=== PATIENT | male | born 1960 | race Caucasian/White ===

== ENCOUNTER 2021-08-14 12:23 | Inpatient (IN) ==
[2021-08-14] MEDS: NS 1000 ML 1,000 ML IV SCH (15:11)
[2021-08-14 15:35] LABS: APPEARANCE,URINE CLEAR (CLEAR); BACTERIA,URINE TRACE /HPF (NEGATIVE); BILIRUBIN,URINE NEGATIVE (NEGATIVE); BLOOD/HEMOGLOBIN,URINE 3+ (NEGATIVE); COLOR,URINE YELLOW (YELLOW); GLUCOSE, URINE NEGATIVE (NEGATIVE); KETONES,URINE NEGATIVE (NEGATIVE); LEUKOCYTE ESTERASE ,URINE NEGATIVE (NEGATIVE); NITRITES,URINE NEGATIVE (NEGATIVE); PROTEIN,URINE NEGATIVE (NEGATIVE); SQUAMOUS EPITHELIAL CELL,UR RARE /HPF (NEGATIVE); UROBILINOGEN,URINE 1+ (NORMAL)
[2021-08-14 15:42] LABS: BASOPHILS # (AUTO) 0.1 X10^3/uL (0.0-0.1); BASOPHILS % (AUTO) 0.7 % (0.2-1.0); EOSINOPHILS % (AUTO) 9.8 % (0.9-2.9); HEMATOCRIT 36.3 % (42.0-54.0); HEMOGLOBIN 12.3 g/dL (13.5-18.0); LYMPHOCYTES # (AUTO) 2.8 X10^3/uL (1.3-2.9); LYMPHOCYTES % (AUTO) 27.2 % (21.0-51.0); MEAN CORPUSCULAR HEMOGLOBIN 32.2 pg (27.0-34.0); MEAN CORPUSCULAR HGB CONC 33.8 g/dL (33.0-35.0); MEAN CORPUSCULAR VOLUME 95.1 fL (80.0-100.0); MONOCYTES # (AUTO) 1.6 x10^3/uL (0.3-0.8); MONOCYTES % (AUTO) 15.6 % (0.0-13.0); NEUTROPHILS # (AUTO) 4.8 x10^3/uL (2.2-4.8); NEUTROPHILS % (AUTO) 46.7 % (42.0-75.0); PLATELET COUNT 161 X10^3/uL (150.0-450.0); RED BLOOD COUNT 3.82 X10^6/uL (4.7-6.0); RED CELL DISTRIBUTION WIDTH 16.2 % (11.6-16.5); WHITE BLOOD COUNT 10.2 X10^3/uL (3.6-10.0)
--- NOTE | 2021-08-14 15:49 | RAD ---
HISTORYABDOMEN PAINSTUDYACUTE x-ray ABDOMEN SERIES, one view chest and two view abdomenCOMPARISONChest x-ray 07/[address] abdomen 07/1921FINDINGSThere is cardiomegaly but it is improved from prior study. No pulmonary venous congestion. No pneumothorax, focal infiltrate, or pleural effusion is seen.No evidence of free intraperitoneal air. Mild small and large bowel air is likely within normal limits. No evidence of constipation. Abdomen images are limited due to patient's size.IMPRESSIONNo acute abdomen abnormality identified.Mild cardiomegaly is improved from prior study.Electronically signed by: Isaac Thomas (Aug 14, 2021 15:46:57)
[2021-08-14 15:51] LABS: AMMONIA 67 umol/L (11-32)
[2021-08-14 15:53] LABS: ALANINE AMINOTRANSFERASE 31 Units/L (12-78); ALBUMIN 2.2 g/dL (3.4-5.0); ALKALINE PHOSPHATASE 129 Units/L (46-116); ASPARTATE AMINO TRANSFERASE 40 Units/L (15-37); BLOOD UREA NITROGEN 39 mg/dL (7-18); CALCIUM 8.5 mg/dL (8.5-10.1); CARBON DIOXIDE 28.2 mmol/L (21-32); CHLORIDE 103 mmol/L (98-107); COR CA(FOR HYPOALB) 9.9 mg/dL (8.5-10.1); CREATININE 3.51 mg/dL (0.70-1.30); SODIUM 141 mmol/L (136-145); TOTAL PROTEIN 5.3 g/dL (6.4-8.2); eGFR NON BLACK RACES 19 (>60)
[2021-08-14] MEDS: LASIX IVP SCH (16:41)
[2021-08-14] MEDS ORDERED: CHRONULAC PO SCH (21:37)
[2021-08-15 05:27] LABS: BASOPHILS # (AUTO) 0.1 X10^3/uL (0.0-0.1); BASOPHILS % (AUTO) 0.7 % (0.2-1.0); EOSINOPHILS # (AUTO) 0.9 x10^3/uL (0.0-0.2); EOSINOPHILS % (AUTO) 11.8 % (0.9-2.9); HEMATOCRIT 32.4 % (42.0-54.0); HEMOGLOBIN 11.2 g/dL (13.5-18.0); LYMPHOCYTES # (AUTO) 2.5 X10^3/uL (1.3-2.9); LYMPHOCYTES % (AUTO) 32.5 % (21.0-51.0); MEAN CORPUSCULAR HEMOGLOBIN 32.5 pg (27.0-34.0); MEAN CORPUSCULAR HGB CONC 34.5 g/dL (33.0-35.0); MEAN CORPUSCULAR VOLUME 94.2 fL (80.0-100.0); MEAN PLATELET VOLUME 6.9 fL (7.4-11.0); MONOCYTES # (AUTO) 1.1 x10^3/uL (0.3-0.8); NEUTROPHILS # (AUTO) 3.2 x10^3/uL (2.2-4.8); PLATELET COUNT 126 X10^3/uL (150.0-450.0); RED BLOOD COUNT 3.44 X10^6/uL (4.7-6.0); RED CELL DISTRIBUTION WIDTH 16.5 % (11.6-16.5); WHITE BLOOD COUNT 7.8 X10^3/uL (3.6-10.0)
[2021-08-15 05:36] LABS: AMMONIA 86 umol/L (11-32)
[2021-08-15 05:39] LABS: ALANINE AMINOTRANSFERASE 27 Units/L (12-78); ALBUMIN 1.9 g/dL (3.4-5.0); ALKALINE PHOSPHATASE 107 Units/L (46-116); ASPARTATE AMINO TRANSFERASE 36 Units/L (15-37); BLOOD UREA NITROGEN 35 mg/dL (7-18); CALCIUM 8.1 mg/dL (8.5-10.1); CHLORIDE 105 mmol/L (98-107); COR CA(FOR HYPOALB) 9.8 mg/dL (8.5-10.1); CREATININE 2.56 mg/dL (0.70-1.30); SODIUM 142 mmol/L (136-145); TOTAL PROTEIN 4.8 g/dL (6.4-8.2); eGFR NON BLACK RACES 27 (>60)
[2021-08-15] MEDS: NS 1000 ML 1,000 ML IV SCH (06:28)
[2021-08-15] MEDS: ALBUMIN HUMAN 25%- 100 ML 100 ML IV SCH (08:59)
[2021-08-15] MEDS: CHRONULAC PO SCH ×3 (08:59→21:00)
[2021-08-15] MEDS: LASIX IVP SCH ×3 (09:01→16:39)
--- NOTE | 2021-08-15 11:14 | DR.UPDATE ---
H&P Update History and Physical Update: History and Physical reviewed and patient examined. Changes noted: Yes with the following: TIME SPENT ON CLINICAL ASSESSMENT, REVIEWING LABS AND IMAGING, DECISION MAKING, AND DOCUMENTATION GREATER THAN 75 MINUTES. IS A 61 YEAR OLD PATIENT OF OURS. HE HAS BEEN FOLLOWED IN THE OFFICE FOR THE PAST FEW DAYS DUE TO COMPLAINTS OF SHORTNESS OF BREATH, LOWER EXTREMITY SWELLING, HYPOTENSION, AND WEAKNESS. PATIENT WAS RECENTLY RELEASED FROM [facility] IN [place], [place] AFTER HAVING A HEART CATH. THIS WAS 3 DAYS AGO. HEART CATH WAS CLEAR, BUT PATIENT DID HAVE MESH PUT IN BECAUSE HE HAS A PULMONARY EMBOLISM AND BLOOD CLOT IN THE LEFT LEG. SINCE DISCHARGE, DIONISIO DUNN HAS HAD PERSISTENT, INCREASED SHORTNESS OF BREATH AND INCREASED SWELLING OF BILATERAL LEGS. HE HAS ALSO HAD DIZZINESS AND GAIT ABNORMALITY. PATIENTS FAMILY MEMBER REPORTS THAT HE HAS FALLEN THREE TIMES SINCE RETURNNG HOME. SHE REPORTS THAT PATIENT REQUIRES ASSISTANCE ANYTIME HE AMBULATES. PATIENT DOES HAVE A NEW DIAGNOSIS OF FATTY LIVER CIRRHOSIS. ABDOMEN/PELVIS CT FROM 07/29/21 REVEALED: Cir rhosis with moderate ascites and mild portal venous hypertension changes. Likely colitis in the ascending, transverse, and proximal descending colon. WE ADMITTED PATIENT TO THE HOSPITAL FOR FURTHER EVALUATION AND TREATMENT OF CIRRHOSIS WITH HEPATIC ENCEPHALOPATHY, ANASARCA, ACUTE RENAL FAILURE, AND SHORTNESS OF BREATH. ON ARRIVAL TO THE HOSPITAL, VITALS WERE 97.8-90-20-96%-151/66. LABS WERE OBTAIN ED. ABNORMAL LAB VALUES INCLUDE THE FOLLOWING: WBC 10.2, RBC 3.82, HGB 12.3, HCT 36.3, POTASSIUM 3.4, BUN 39, CREATININE 3.51, TOTAL BILIRUBIN 3.50, AST 40, ALK PHOS 129, AMMONIA 67, TOTAL PROTEIN 5.3, ALBUMIN 2.2. URINALYSIS REVEALED: WBC 0-2, RBC 10-20, OCCULT BLOOD 3+, BACTERIA TRACE. COVID, RSV, INFLUENZA NEGATIVE. ABDOMEN XRAY OBTAINED AND REVELAED: No acute abdomen abnormality identified. Mi ld cardiomegaly is improved from prior study. HE WAS STARTED ON NORMAL SALINE AT 75 ML/HR, LASIX 20MG IV BID, ALBUMIN 25% IV DAILY, LACTULOSE 30ML PO TID. WE WILL REVIEW HIS HOME MEDICATIONS. WE WILL REPEAT AN ABDOMEN/PELVIS CT WITHOUT CONTRAST. OTHERWISE, WE PLAN TO FOLLOW UP WITH AM LABS AND CONTINUE TO MONITOR. TIME SPENT ON CLINICAL ASSESSMENT, REVIEWING LABS AND IMAGING, DECISION MAKING, AND DOCUMENTATION GREATER THAN 75 MINUTES. H&P Reviewed: Yes Patient was examined?: Yes
[2021-08-15] MEDS ORDERED: ROXICODONE TAB 5 MG PO PRN (11:23)
[2021-08-15] MEDS: MAG-OX TAB PO SCH (12:17)
[2021-08-15] MEDS: SYNTHROID 150 mcg TAB PO SCH (12:17)
[2021-08-15 12:49] VITALS: BMI 49.4
[2021-08-15] MEDS ORDERED: POTASSIUM CHL 60 MEQ/NS 0.45% 500 ML IV PRN (12:54)
[2021-08-15] MEDS ORDERED: POTASSIUM CHLORIDE LIQ 20 MEQ UDC PO PRN (12:54)
[2021-08-15] MEDS ORDERED: POTASSIUM CHL 40 MEQ/NS 0.45% 500 ML IV PRN (12:54)
[2021-08-15] MEDS ORDERED: KLOR-CON PO PRN (12:54)
[2021-08-15] MEDS ORDERED: K-RIDER 10 MEQ/NS 100 ML 10 MEQ/100 ML BAG IV PRN (12:54)
[2021-08-15] MEDS ORDERED: MICRO K EXTEN CAP 10 MEQ PO PRN (12:54)
[2021-08-15] MEDS ORDERED: CELEXA ONE (19:59)
[2021-08-15] MEDS ORDERED: FLEXERIL TAB 10 MG ONE (19:59)
[2021-08-15] MEDS ORDERED: PEPCID TAB 20 MG ONE (19:59)
[2021-08-15] MEDS: FLEXERIL TAB 10 MG PO SCH (21:00)
[2021-08-15] MEDS: PEPCID TAB 20 MG PO SCH (21:00)
[2021-08-15] MEDS: CELEXA PO SCH (21:00)
[2021-08-15] MEDS: NORCO 10/325 TAB PO PRN (21:00)
[2021-08-15] MEDS: AMBIEN PO SCH (22:30)
[2021-08-16] MEDS: NS 1000 ML 1,000 ML IV SCH ×3 (03:00→17:56)
[2021-08-16] MEDS: CHRONULAC PO SCH ×3 (06:05→21:10)
[2021-08-16 06:25] LABS: BASOPHILS % (AUTO) 0.6 % (0.2-1.0); EOSINOPHILS # (AUTO) 0.8 x10^3/uL (0.0-0.2); EOSINOPHILS % (AUTO) 11.4 % (0.9-2.9); HEMATOCRIT 31.1 % (42.0-54.0); HEMOGLOBIN 10.8 g/dL (13.5-18.0); LYMPHOCYTES # (AUTO) 2.5 X10^3/uL (1.3-2.9); LYMPHOCYTES % (AUTO) 37.3 % (21.0-51.0); MEAN CORPUSCULAR HEMOGLOBIN 32.8 pg (27.0-34.0); MEAN CORPUSCULAR HGB CONC 34.7 g/dL (33.0-35.0); MEAN CORPUSCULAR VOLUME 94.5 fL (80.0-100.0); MEAN PLATELET VOLUME 6.7 fL (7.4-11.0); MONOCYTES # (AUTO) 0.9 x10^3/uL (0.3-0.8); MONOCYTES % (AUTO) 13.7 % (0.0-13.0); NEUTROPHILS # (AUTO) 2.4 x10^3/uL (2.2-4.8); PLATELET COUNT 102 X10^3/uL (150.0-450.0); RED BLOOD COUNT 3.29 X10^6/uL (4.7-6.0); RED CELL DISTRIBUTION WIDTH 16.3 % (11.6-16.5); WHITE BLOOD COUNT 6.6 X10^3/uL (3.6-10.0)
[2021-08-16 06:43] LABS: ALANINE AMINOTRANSFERASE 26 Units/L (12-78); ALBUMIN 2.1 g/dL (3.4-5.0); ALKALINE PHOSPHATASE 103 Units/L (46-116); ASPARTATE AMINO TRANSFERASE 59 Units/L (15-37); BLOOD UREA NITROGEN 31 mg/dL (7-18); CALCIUM 8.2 mg/dL (8.5-10.1); CARBON DIOXIDE 28.8 mmol/L (21-32); CHLORIDE 107 mmol/L (98-107); COR CA(FOR HYPOALB) 9.7 mg/dL (8.5-10.1); CREATININE 1.85 mg/dL (0.70-1.30); SODIUM 144 mmol/L (136-145); TOTAL PROTEIN 4.7 g/dL (6.4-8.2); eGFR NON BLACK RACES 40 (>60)
[2021-08-16 07:07] LABS: AMMONIA 65 umol/L (11-32)
[2021-08-16] MEDS: SYNTHROID 150 mcg TAB PO SCH (08:17)
[2021-08-16] MEDS: MAG-OX TAB PO SCH (08:17)
[2021-08-16] MEDS: ALBUMIN HUMAN 25%- 100 ML 100 ML IV SCH (08:17)
--- NOTE | 2021-08-16 10:02 | CT ---
HISTORYABD SWELLING, CIRRHOSIS, HEPATIC ENCEPHALOPATHYSTUDYABDOMEN/PELVIS W/O [id number] axial images of the abdomen and pelvis were obtained from the lung bases to the pubic symphysis without the administration of IV contrast. Dose reduction techniques including Automated Exposure Control (AEC) and adjustment of mA and kV were utilized.FINDINGS[The lung bases are clear. Moderate calcification posterior left pleura. The liver has a cirrhotic morphology. No definite hepatic lesion given limitations of a noncontrast examination. Prior cholecystectomy. Bile ducts are normal caliber. The spleen is unremarkable. The pancreas and adrenal glands are normal. Moderate and perisplenic free fluid.] Neither kidney demonstrates evidence of solid mass oasis. Small nonobstructing stones are noted within the lower poles of the right left kidney.Urinary bladder is collapsed around a Bar catheter. Prostate gland is unremarkable. The rectum is normal. Distal colonic diverticulosis without evidence of acute diverticulitis. Abdominal aorta is normal in caliber. No enlarged abdominal or pelvic lymph node. IVC filter is noted in expected positioning. Review of bone windows demonstrates no acute osseous abnormality.IMPRESSIONCirrhosis with moderate ascites. No focal hepatic lesion given the significant limitations of a noncontrast examination.Bilateral nonobstructing nephrolithiasis.Colonic diverticulosis without evidence of acute diverticulitis.Electronically signed by: IAIN ADAM (Aug 16, 2021 10:00:24)
[2021-08-16] MEDS: LASIX IVP SCH (16:32)
[2021-08-16] MEDS: NORCO 10/325 TAB PO PRN (18:38)
[2021-08-16] MEDS: AMBIEN PO SCH (21:08)
[2021-08-16] MEDS: COLACE CAP 100 MG PO SCH (21:09)
[2021-08-16] MEDS: CELEXA PO SCH (21:09)
[2021-08-16] MEDS: FLEXERIL TAB 10 MG PO SCH (21:09)
[2021-08-16] MEDS: PEPCID TAB 20 MG PO SCH (21:10)
[2021-08-17] MEDS: CHRONULAC PO SCH ×3 (05:19→21:45)
[2021-08-17 06:15] LABS: BASOPHILS % (AUTO) 0.6 % (0.2-1.0); EOSINOPHILS # (AUTO) 0.8 x10^3/uL (0.0-0.2); EOSINOPHILS % (AUTO) 11.4 % (0.9-2.9); HEMOGLOBIN 11.2 g/dL (13.5-18.0); LYMPHOCYTES # (AUTO) 2.7 X10^3/uL (1.3-2.9); LYMPHOCYTES % (AUTO) 39.3 % (21.0-51.0); MEAN CORPUSCULAR HEMOGLOBIN 33.2 pg (27.0-34.0); MEAN CORPUSCULAR HGB CONC 34.9 g/dL (33.0-35.0); MEAN CORPUSCULAR VOLUME 94.9 fL (80.0-100.0); MEAN PLATELET VOLUME 6.8 fL (7.4-11.0); MONOCYTES # (AUTO) 0.8 x10^3/uL (0.3-0.8); MONOCYTES % (AUTO) 12.5 % (0.0-13.0); NEUTROPHILS # (AUTO) 2.5 x10^3/uL (2.2-4.8); NEUTROPHILS % (AUTO) 36.2 % (42.0-75.0); PLATELET COUNT 90 X10^3/uL (150.0-450.0); RED BLOOD COUNT 3.37 X10^6/uL (4.7-6.0); RED CELL DISTRIBUTION WIDTH 16.6 % (11.6-16.5); WHITE BLOOD COUNT 6.8 X10^3/uL (3.6-10.0)
[2021-08-17 06:27] LABS: AMMONIA 54 umol/L (11-32)
[2021-08-17 06:33] LABS: ALANINE AMINOTRANSFERASE 29 Units/L (12-78); ALBUMIN 2.5 g/dL (3.4-5.0); ALKALINE PHOSPHATASE 108 Units/L (46-116); ASPARTATE AMINO TRANSFERASE 52 Units/L (15-37); BLOOD UREA NITROGEN 24 mg/dL (7-18); CALCIUM 8.1 mg/dL (8.5-10.1); CARBON DIOXIDE 26.8 mmol/L (21-32); CHLORIDE 109 mmol/L (98-107); COR CA(FOR HYPOALB) 9.3 mg/dL (8.5-10.1); CREATININE 1.52 mg/dL (0.70-1.30); MAGNESIUM 1.7 mg/dL (1.7-2.9); SODIUM 145 mmol/L (136-145); TOTAL PROTEIN 5.1 g/dL (6.4-8.2); eGFR NON BLACK RACES 50 (>60)
[2021-08-17] MEDS: ALBUMIN HUMAN 25%- 100 ML 100 ML IV SCH (08:29)
[2021-08-17] MEDS: LASIX IVP SCH (08:29)
[2021-08-17] MEDS: MAG-OX TAB PO SCH (08:29)
[2021-08-17] MEDS: SYNTHROID 150 mcg TAB PO SCH (08:30)
[2021-08-17] MEDS: NS 1000 ML 1,000 ML IV SCH ×2 (10:54→13:21)
[2021-08-17] MEDS ORDERED: K-RIDER 10 MEQ/NS 100 ML 10 MEQ/100 ML BAG IV PRN (14:22)
[2021-08-17] MEDS ORDERED: KLOR-CON PO PRN (14:22)
[2021-08-17] MEDS ORDERED: K-DUR TAB 20 MEQ PO PRN (14:22)
[2021-08-17] MEDS ORDERED: POTASSIUM CHL 40 MEQ/NS 0.45% 500 ML IV PRN (14:22)
[2021-08-17] MEDS ORDERED: MICRO K EXTEN CAP 10 MEQ PO PRN (14:22)
[2021-08-17] MEDS ORDERED: POTASSIUM CHLORIDE LIQ 20 MEQ UDC PO PRN (14:22)
[2021-08-17] MEDS ORDERED: POTASSIUM CHL 60 MEQ/NS 0.45% 500 ML IV PRN (14:22)
[2021-08-17] MEDS: K-DUR TAB 20 MEQ PO PRN (15:13)
[2021-08-17] MEDS: COLACE CAP 100 MG PO SCH (21:45)
[2021-08-17] MEDS: PEPCID TAB 20 MG PO SCH (21:45)
[2021-08-17] MEDS: CELEXA PO SCH (21:45)
[2021-08-17] MEDS: FLEXERIL TAB 10 MG PO SCH (21:45)
[2021-08-17] MEDS: NORCO 10/325 TAB PO PRN (21:45)
[2021-08-17] MEDS: AMBIEN PO SCH (21:45)
[2021-08-18] MEDS: CHRONULAC PO SCH ×4 (07:32→21:14)
[2021-08-18] MEDS: NS 1000 ML 1,000 ML IV SCH ×2 (07:32→16:01)
[2021-08-18] MEDS: ALBUMIN HUMAN 25%- 100 ML 100 ML IV SCH (08:04)
[2021-08-18] MEDS: SYNTHROID 150 mcg TAB PO SCH (08:05)
[2021-08-18] MEDS: MAG-OX TAB PO SCH (08:05)
[2021-08-18 09:23] LABS: BLOOD UREA NITROGEN 18 mg/dL (7-18); CALCIUM 8.1 mg/dL (8.5-10.1); CARBON DIOXIDE 26.4 mmol/L (21-32); CHLORIDE 110 mmol/L (98-107); CREATININE 1.43 mg/dL (0.70-1.30); SODIUM 145 mmol/L (136-145); eGFR NON BLACK RACES 54 (>60)
[2021-08-18] MEDS: K-DUR TAB 20 MEQ PO PRN (10:27)
--- NOTE | 2021-08-18 16:36 | PCM.PROG ---
Progress Note Progress Note for Day of Date of Exam: 08/18/21 Subjective Subjective: Patient is awake. Less confused this am per family. Past Medical Family Social History Past Med/Fam/Surg Hx: No changes since H&P Allergies: Allergies levofloxacin [From Levaquin] Allergy (Verified 07/29/21 07:31) Review of Systems ROS: No change since H&P Vital Signs and I&O's Vital Signs: Temperature 97.9 F Pulse Rate [Left Brachial] 72 Respiratory Rate 18 Blood Pressure [Left Arm] 130/58 Blood Pressure 108/51 O2 Sat by Pulse Oximetry 93 Intake and Output: Intake & Output 08/16/21 08/17/21 08/18/21 08/19/21 11:59 11:59 11:59 11:59 Intake Total 3015 / 3015 2531 / 2531 2703 / 2703 Output Total 3300 / 3300 3031 / 3031 1300 / 1300 Balance -285 / -285 -500 / -500 1403 / 1403 Physical Exam Oriented: Person Respiratory: Normal Cardiovascular: Normal Auscultation: Bowel Sounds: Normal Tenderness: Diffuse Skin: Normal Psychiatric: Normal Mood Description: Calm Affect: Normal Speech Pattern: Clear and Appropriate Laboratory and Diagnostics Result Diagrams: 08/17/21 05:53 08/18/21 08:52 Labs: Laboratory WBC 6.8 X10^3/uL (3.6-10.0) 08/17/21 05:53 RBC 3.37 X10^6/uL (4.7-6.0) L 08/17/21 05:53 Hgb 11.2 g/dL (13.5-18.0) L 08/17/21 05:53 Hct 32.0 % (42.0-54.0) L 08/17/21 05:53 MCV 94.9 fL (80.0-100.0) 08/17/21 05:53 MCH 33.2 pg (27.0-34.0) 08/17/21 05:53 MCHC 34.9 g/dL (33.0-35.0) 08/17/21 05:53 RDW 16.6 % (11.6-16.5) H 08/17/21 05:53 Plt Count 90 X10^3/uL (150.0-450.0) L 08/17/21 05:53 MPV 6.8 fL (7.4-11.0) L 08/17/21 05:53 Neut % (Auto) 36.2 % (42.0-75.0) L 08/17/21 05:53 Lymph % (Auto) 39.3 % (21.0-51.0) 08/17/21 05:53 [place] % (Auto) 12.5 % (0.0-13.0) 08/17/21 05:53 Eos % (Auto) 11.4 % (0.9-2.9) H 08/17/21 05:53 Baso % (Auto) 0.6 % (0.2-1.0) 08/17/21 05:53 Neut # (Auto) 2.5 x10^3/uL (2.2-4.8) 08/17/21 05:53 Lymph # (Auto) 2.7 X10^3/uL (1.3-2.9) 08/17/21 05:53 [place] # (Auto) 0.8 x10^3/uL (0.3-0.8) 08/17/21 05:53 Eos # (Auto) 0.8 x10^3/uL (0.0-0.2) H 08/17/21 05:53 Baso # (Auto) 0.0 X10^3/uL (0.0-0.1) 08/17/21 05:53 Absolute Nucleated RBC 0.1 /100WBC 08/17/21 05:53 Sodium 145 mmol/L (136-145) 08/18/21 08:52 Corrected Sodium TNP 08/18/21 08:52 Potassium 3.5 mmol/L (3.5-5.1) 08/18/21 08:52 Chloride 110 mmol/L (98-107) H 08/18/21 08:52 Carbon Dioxide 26.4 mmol/L (21-32) 08/18/21 08:52 BUN 18 mg/dL (7-18) 08/18/21 08:52 Creatinine 1.43 mg/dL (0.70-1.30) H 08/18/21 08:52 Est GFR (MDRD) Af Amer > 60 (>60) 08/18/21 08:52 Est GFR (MDRD) Non-Af 54 (>60) L 08/18/21 08:52 Glucose 78 mg/dL (65-99) 08/18/21 08:52 Calcium 8.1 mg/dL (8.5-10.1) L 08/18/21 08:52 Corrected Calcium 9.3 mg/dL (8.5-10.1) 08/17/21 05:53 Magnesium 1.7 mg/dL (1.7-2.9) 08/17/21 05:53 Total Bilirubin 4.20 mg/dL (0.2-1.0) H 08/17/21 05:53 AST 52 Units/L (15-37) H 08/17/21 05:53 ALT 29 Units/L (12-78) 08/17/21 05:53 Alkaline Phosphatase 108 Units/L (46-116) 08/17/21 05:53 Ammonia 54 umol/L (11-32) H 08/17/21 05:53 Total Protein 5.1 g/dL (6.4-8.2) L 08/17/21 05:53 Albumin 2.5 g/dL (3.4-5.0) L 08/17/21 05:53 Globulin 2.6 g/dL (2.5-4.5) 08/17/21 05:53 Albumin/Globulin Ratio 1.0 Ratio (1.1-2.1) L 08/17/21 05:53 Specimen Type Catherized urine 08/14/21 14:32 Urine Color Yellow (YELLOW) 08/14/21 14:32 Urine Appearance Clear (CLEAR) 08/14/21 14:32 Urine pH 8.0 (5.0 - 8.0) 08/14/21 14:32 Ur Specific [place] 1.010 (1.000-1.030) 08/14/21 14:32 Urine Protein Negative (NEGATIVE) 08/14/21 14:32 Urine Glucose (UA) Negative (NEGATIVE) 08/14/21 14:32 Urine Ketones Negative (NEGATIVE) 08/14/21 14:32 Urine Occult Blood 3+ (NEGATIVE) 08/14/21 14:32 Urine Nitrite Negative (NEGATIVE) 08/14/21 14:32 Urine Bilirubin Negative (NEGATIVE) 08/14/21 14:32 Urine Urobilinogen 1+ (NORMAL) 08/14/21 14:32 Ur Leukocyte Esterase Negative (NEGATIVE) 08/14/21 14:32 Urine RBC 10-20 /HPF (0-3) A 08/14/21 14:32 Urine WBC 0-2 /HPF (0-5) 08/14/21 14:32 Ur Squamous Epith Cells Rare /HPF (NEGATIVE) 08/14/21 14:32 Urine Bacteria Trace /HPF (NEGATIVE) 08/14/21 14:32 Ur Culture Indicated? No/not indicated 08/14/21 14:32 SARS-CoV-2 (PCR) Negative (NEGATIVE) 08/14/21 12:35 Influenza Type A (PCR) Negative (NEGATIVE) 08/14/21 12:35 Influenza Type B (PCR) Negative (NEGATIVE) 08/14/21 12:35 RSV (PCR) Negative (NEGATIVE) 08/14/21 12:35 Plan (1) Alcoholic cirrhosis of liver with ascites: Status: Acute Plan: GI to see patient next week. (2) Hepatic encephalopathy: Status: Acute Plan: Continue lactulose and continue to check daily Ammonia levels.
[2021-08-18] MEDS: COLACE CAP 100 MG PO SCH (21:12)
[2021-08-18] MEDS: CELEXA PO SCH (21:12)
[2021-08-18] MEDS: AMBIEN PO SCH (21:12)
[2021-08-18] MEDS: FLEXERIL TAB 10 MG PO SCH (21:12)
[2021-08-18] MEDS: PEPCID TAB 20 MG PO SCH (21:13)
[2021-08-18] MEDS: NORCO 10/325 TAB PO PRN (21:30)
[2021-08-19] MEDS: CHRONULAC PO SCH ×3 (06:17→21:07)
[2021-08-19 06:51] LABS: BASOPHILS % (AUTO) 0.5 % (0.2-1.0); EOSINOPHILS # (AUTO) 0.8 x10^3/uL (0.0-0.2); EOSINOPHILS % (AUTO) 10.3 % (0.9-2.9); HEMATOCRIT 32.4 % (42.0-54.0); HEMOGLOBIN 11.3 g/dL (13.5-18.0); LYMPHOCYTES # (AUTO) 3.2 X10^3/uL (1.3-2.9); LYMPHOCYTES % (AUTO) 43.9 % (21.0-51.0); MEAN CORPUSCULAR HEMOGLOBIN 33.1 pg (27.0-34.0); MEAN CORPUSCULAR HGB CONC 34.8 g/dL (33.0-35.0); MEAN PLATELET VOLUME 6.9 fL (7.4-11.0); MONOCYTES # (AUTO) 0.8 x10^3/uL (0.3-0.8); MONOCYTES % (AUTO) 11.2 % (0.0-13.0); NEUTROPHILS # (AUTO) 2.5 x10^3/uL (2.2-4.8); NEUTROPHILS % (AUTO) 34.1 % (42.0-75.0); PLATELET COUNT 99 X10^3/uL (150.0-450.0); RED BLOOD COUNT 3.41 X10^6/uL (4.7-6.0); RED CELL DISTRIBUTION WIDTH 16.4 % (11.6-16.5); WHITE BLOOD COUNT 7.4 X10^3/uL (3.6-10.0)
[2021-08-19 06:54] LABS: AMMONIA 40 umol/L (11-32)
[2021-08-19] MEDS: NS 1000 ML 1,000 ML IV SCH ×3 (07:03→23:24)
[2021-08-19 07:06] LABS: ALANINE AMINOTRANSFERASE 39 Units/L (12-78); ALBUMIN 2.8 g/dL (3.4-5.0); ALKALINE PHOSPHATASE 126 Units/L (46-116); ASPARTATE AMINO TRANSFERASE 70 Units/L (15-37); BLOOD UREA NITROGEN 14 mg/dL (7-18); CALCIUM 8.3 mg/dL (8.5-10.1); CARBON DIOXIDE 24.3 mmol/L (21-32); CHLORIDE 111 mmol/L (98-107); COR CA(FOR HYPOALB) 9.3 mg/dL (8.5-10.1); MAGNESIUM 1.7 mg/dL (1.7-2.9); TOTAL PROTEIN 5.3 g/dL (6.4-8.2); eGFR NON BLACK RACES > 60 (>60)
[2021-08-19 07:08] LABS: SODIUM 145 mmol/L (136-145)
[2021-08-19] MEDS: MAG-OX TAB PO SCH (09:44)
[2021-08-19] MEDS: SYNTHROID 150 mcg TAB PO SCH (09:44)
[2021-08-19] MEDS: ALBUMIN HUMAN 25%- 100 ML 100 ML IV SCH (09:48)
[2021-08-19] MEDS: NORCO 10/325 TAB PO PRN (09:55)
--- NOTE | 2021-08-19 14:29 | PCM.PROG ---
Progress Note Progress Note for Day of Date of Exam: 08/19/21 Subjective Subjective: Patient is awake. Less confused this am. Past Medical Family Social History Past Med/Fam/Surg Hx: No changes since H&P Allergies: Allergies levofloxacin [From Levaquin] Allergy (Verified 07/29/21 07:31) Review of Systems ROS: No change since H&P Vital Signs and I&O's Vital Signs: Temperature 98.2 F Pulse Rate [Left Brachial] 76 Respiratory Rate 18 Blood Pressure [Left Arm] 158/96 Blood Pressure 108/51 O2 Sat by Pulse Oximetry 96 Intake and Output: Intake & Output 08/17/21 08/18/21 08/19/21 08/20/21 11:59 11:59 11:59 11:59 Intake Total 2531 / 2531 2703 / 2703 4069 / 4069 Output Total 3031 / 3031 1300 / 1300 Balance -500 / -500 1403 / 1403 4069 / 4069 Physical Exam Oriented: Normal Eyes: Normal Respiratory: Normal Cardiovascular: Normal Auscultation: Bowel Sounds: Normal Tenderness: Diffuse and Other Skin: Normal Psychiatric: Normal Mood Description: Calm Affect: Normal Speech Pattern: Clear and Appropriate Laboratory and Diagnostics Result Diagrams: 08/19/21 05:52 08/19/21 05:52 Labs: Laboratory WBC 7.4 X10^3/uL (3.6-10.0) 08/19/21 05:52 RBC 3.41 X10^6/uL (4.7-6.0) L 08/19/21 05:52 Hgb 11.3 g/dL (13.5-18.0) L 08/19/21 05:52 Hct 32.4 % (42.0-54.0) L 08/19/21 05:52 MCV 95.0 fL (80.0-100.0) 08/19/21 05:52 MCH 33.1 pg (27.0-34.0) 08/19/21 05:52 MCHC 34.8 g/dL (33.0-35.0) 08/19/21 05:52 RDW 16.4 % (11.6-16.5) 08/19/21 05:52 Plt Count 99 X10^3/uL (150.0-450.0) L 08/19/21 05:52 MPV 6.9 fL (7.4-11.0) L 08/19/21 05:52 Neut % (Auto) 34.1 % (42.0-75.0) L 08/19/21 05:52 Lymph % (Auto) 43.9 % (21.0-51.0) 08/19/21 05:52 [place] % (Auto) 11.2 % (0.0-13.0) 08/19/21 05:52 Eos % (Auto) 10.3 % (0.9-2.9) H 08/19/21 05:52 Baso % (Auto) 0.5 % (0.2-1.0) 08/19/21 05:52 Neut # (Auto) 2.5 x10^3/uL (2.2-4.8) 08/19/21 05:52 Lymph # (Auto) 3.2 X10^3/uL (1.3-2.9) H 08/19/21 05:52 [place] # (Auto) 0.8 x10^3/uL (0.3-0.8) 08/19/21 05:52 Eos # (Auto) 0.8 x10^3/uL (0.0-0.2) H 08/19/21 05:52 Baso # (Auto) 0.0 X10^3/uL (0.0-0.1) 08/19/21 05:52 Absolute Nucleated RBC 0.3 /100WBC 08/19/21 05:52 Sodium 145 mmol/L (136-145) 08/19/21 05:52 Corrected Sodium TNP 08/19/21 05:52 Potassium 3.5 mmol/L (3.5-5.1) 08/19/21 05:52 Chloride 111 mmol/L (98-107) H 08/19/21 05:52 Carbon Dioxide 24.3 mmol/L (21-32) 08/19/21 05:52 BUN 14 mg/dL (7-18) 08/19/21 05:52 Creatinine 1.30 mg/dL (0.70-1.30) 08/19/21 05:52 Est GFR (MDRD) Af Amer > 60 (>60) 08/19/21 05:52 Est GFR (MDRD) Non-Af > 60 (>60) 08/19/21 05:52 Glucose 74 mg/dL (65-99) 08/19/21 05:52 Calcium 8.3 mg/dL (8.5-10.1) L 08/19/21 05:52 Corrected Calcium 9.3 mg/dL (8.5-10.1) 08/19/21 05:52 Magnesium 1.7 mg/dL (1.7-2.9) 08/19/21 05:52 Total Bilirubin 4.10 mg/dL (0.2-1.0) H 08/19/21 05:52 AST 70 Units/L (15-37) H 08/19/21 05:52 ALT 39 Units/L (12-78) 08/19/21 05:52 Alkaline Phosphatase 126 Units/L (46-116) H 08/19/21 05:52 Ammonia 40 umol/L (11-32) H 08/19/21 05:52 Total Protein 5.3 g/dL (6.4-8.2) L 08/19/21 05:52 Albumin 2.8 g/dL (3.4-5.0) L 08/19/21 05:52 Globulin 2.5 g/dL (2.5-4.5) 08/19/21 05:52 Albumin/Globulin Ratio 1.1 Ratio (1.1-2.1) 08/19/21 05:52 Specimen Type Catherized urine 08/14/21 14:32 Urine Color Yellow (YELLOW) 08/14/21 14:32 Urine Appearance Clear (CLEAR) 08/14/21 14:32 Urine pH 8.0 (5.0 - 8.0) 08/14/21 14:32 Ur Specific [place] 1.010 (1.000-1.030) 08/14/21 14:32 Urine Protein Negative (NEGATIVE) 08/14/21 14:32 Urine Glucose (UA) Negative (NEGATIVE) 08/14/21 14:32 Urine Ketones Negative (NEGATIVE) 08/14/21 14:32 Urine Occult Blood 3+ (NEGATIVE) 08/14/21 14:32 Urine Nitrite Negative (NEGATIVE) 08/14/21 14:32 Urine Bilirubin Negative (NEGATIVE) 08/14/21 14:32 Urine Urobilinogen 1+ (NORMAL) 08/14/21 14:32 Ur Leukocyte Esterase Negative (NEGATIVE) 08/14/21 14:32 Urine RBC 10-20 /HPF (0-3) A 08/14/21 14:32 Urine WBC 0-2 /HPF (0-5) 08/14/21 14:32 Ur Squamous Epith Cells Rare /HPF (NEGATIVE) 08/14/21 14:32 Urine Bacteria Trace /HPF (NEGATIVE) 08/14/21 14:32 Ur Culture Indicated? No/not indicated 08/14/21 14:32 SARS-CoV-2 (PCR) Negative (NEGATIVE) 08/14/21 12:35 Influenza Type A (PCR) Negative (NEGATIVE) 08/14/21 12:35 Influenza Type B (PCR) Negative (NEGATIVE) 08/14/21 12:35 RSV (PCR) Negative (NEGATIVE) 08/14/21 12:35 Plan (1) Alcoholic cirrhosis of liver with ascites: Status: Acute Plan: GI to see patient next week. (2) Hepatic encephalopathy: Status: Acute Narrative Support Text: Ammonia levels are trending down. Plan: Continue lactulose and continue to check daily Ammonia levels.
[2021-08-19] MEDS: AMBIEN PO SCH (20:19)
[2021-08-19] MEDS: CELEXA PO SCH (20:19)
[2021-08-19] MEDS: FLEXERIL TAB 10 MG PO SCH (20:20)
[2021-08-19] MEDS: PEPCID TAB 20 MG PO SCH (20:20)
[2021-08-19] MEDS: COLACE CAP 100 MG PO SCH (20:20)
[2021-08-20] MEDS: CHRONULAC PO SCH ×4 (05:22→21:08)
[2021-08-20 06:44] LABS: BASOPHILS % (AUTO) 0.5 % (0.2-1.0); EOSINOPHILS # (AUTO) 0.8 x10^3/uL (0.0-0.2); HEMATOCRIT 30.5 % (42.0-54.0); HEMOGLOBIN 10.6 g/dL (13.5-18.0); LYMPHOCYTES # (AUTO) 2.1 X10^3/uL (1.3-2.9); LYMPHOCYTES % (AUTO) 38.2 % (21.0-51.0); MEAN CORPUSCULAR HEMOGLOBIN 32.7 pg (27.0-34.0); MEAN CORPUSCULAR HGB CONC 34.6 g/dL (33.0-35.0); MEAN CORPUSCULAR VOLUME 94.6 fL (80.0-100.0); MEAN PLATELET VOLUME 6.7 fL (7.4-11.0); MONOCYTES # (AUTO) 0.7 x10^3/uL (0.3-0.8); MONOCYTES % (AUTO) 11.9 % (0.0-13.0); NEUTROPHILS % (AUTO) 35.4 % (42.0-75.0); PLATELET COUNT 94 X10^3/uL (150.0-450.0); RED BLOOD COUNT 3.22 X10^6/uL (4.7-6.0); RED CELL DISTRIBUTION WIDTH 16.6 % (11.6-16.5); WHITE BLOOD COUNT 5.6 X10^3/uL (3.6-10.0)
[2021-08-20 06:52] LABS: ALANINE AMINOTRANSFERASE 44 Units/L (12-78); ALBUMIN 2.7 g/dL (3.4-5.0); ALKALINE PHOSPHATASE 103 Units/L (46-116); ASPARTATE AMINO TRANSFERASE 76 Units/L (15-37); BLOOD UREA NITROGEN 11 mg/dL (7-18); CALCIUM 8.1 mg/dL (8.5-10.1); CARBON DIOXIDE 24.1 mmol/L (21-32); CHLORIDE 112 mmol/L (98-107); COR CA(FOR HYPOALB) 9.1 mg/dL (8.5-10.1); CREATININE 1.07 mg/dL (0.70-1.30); SODIUM 145 mmol/L (136-145); TOTAL PROTEIN 5.1 g/dL (6.4-8.2); eGFR NON BLACK RACES > 60 (>60)
--- NOTE | 2021-08-20 06:55 | RAD ---
HISTORYCirrhosis, ascitesSTUDYChest AP [id number] t is enlarged. No congestive heart failure is noted. No acute alveolar infiltrates or pleural effusions are identified. Bony thorax is unremarkable.IMPRESSIONCardiomegaly without congestive heart failureLungs clearElectronically signed by: AIDEN GALO (Aug 20, 2021 06:54:20)
[2021-08-20 07:31] LABS: AMMONIA 72 umol/L (11-32)
[2021-08-20] MEDS: ALBUMIN HUMAN 25%- 100 ML 100 ML IV SCH (08:23)
[2021-08-20] MEDS: SYNTHROID 150 mcg TAB PO SCH (08:24)
[2021-08-20] MEDS: MAG-OX TAB PO SCH (08:24)
[2021-08-20] MEDS: NS 1000 ML 1,000 ML IV SCH ×2 (10:10→12:02)
[2021-08-20 16:53] LABS: BILIRUBIN,DIRECT 0.9 mg/dL (0-0.2)
[2021-08-20] MEDS: PEPCID TAB 20 MG PO SCH (21:08)
[2021-08-20] MEDS: CELEXA PO SCH (21:08)
[2021-08-20] MEDS: AMBIEN PO SCH (21:08)
[2021-08-20] MEDS: FLEXERIL TAB 10 MG PO SCH (21:08)
[2021-08-20] MEDS: COLACE CAP 100 MG PO SCH (21:09)
[2021-08-21] MEDS: NS 1000 ML 1,000 ML IV SCH (00:05)
[2021-08-21] MEDS: CHRONULAC PO SCH ×3 (05:57→22:37)
[2021-08-21 06:20] LABS: BASOPHILS % (AUTO) 0.5 % (0.2-1.0); EOSINOPHILS # (AUTO) 0.7 x10^3/uL (0.0-0.2); EOSINOPHILS % (AUTO) 10.5 % (0.9-2.9); HEMATOCRIT 30.6 % (42.0-54.0); HEMOGLOBIN 10.5 g/dL (13.5-18.0); LYMPHOCYTES # (AUTO) 2.5 X10^3/uL (1.3-2.9); LYMPHOCYTES % (AUTO) 39.5 % (21.0-51.0); MEAN CORPUSCULAR HEMOGLOBIN 32.7 pg (27.0-34.0); MEAN CORPUSCULAR HGB CONC 34.4 g/dL (33.0-35.0); MEAN CORPUSCULAR VOLUME 95.2 fL (80.0-100.0); MEAN PLATELET VOLUME 6.9 fL (7.4-11.0); MONOCYTES # (AUTO) 0.6 x10^3/uL (0.3-0.8); MONOCYTES % (AUTO) 10.1 % (0.0-13.0); NEUTROPHILS # (AUTO) 2.5 x10^3/uL (2.2-4.8); NEUTROPHILS % (AUTO) 39.4 % (42.0-75.0); PLATELET COUNT 104 X10^3/uL (150.0-450.0); RED BLOOD COUNT 3.21 X10^6/uL (4.7-6.0); RED CELL DISTRIBUTION WIDTH 16.8 % (11.6-16.5); WHITE BLOOD COUNT 6.4 X10^3/uL (3.6-10.0)
[2021-08-21 06:30] LABS: AMMONIA 44 umol/L (11-32)
[2021-08-21 06:39] LABS: ALANINE AMINOTRANSFERASE 48 Units/L (12-78); ALBUMIN 2.8 g/dL (3.4-5.0); ALKALINE PHOSPHATASE 107 Units/L (46-116); ASPARTATE AMINO TRANSFERASE 79 Units/L (15-37); BLOOD UREA NITROGEN 10 mg/dL (7-18); CALCIUM 8.2 mg/dL (8.5-10.1); CARBON DIOXIDE 21.2 mmol/L (21-32); CHLORIDE 113 mmol/L (98-107); COR CA(FOR HYPOALB) 9.2 mg/dL (8.5-10.1); CREATININE 1.14 mg/dL (0.70-1.30); SODIUM 146 mmol/L (136-145); TOTAL PROTEIN 5.2 g/dL (6.4-8.2); eGFR NON BLACK RACES > 60 (>60)
[2021-08-21] MEDS: MAG-OX TAB PO SCH (09:15)
[2021-08-21] MEDS: ALBUMIN HUMAN 25%- 100 ML 100 ML IV SCH (09:15)
[2021-08-21] MEDS: SYNTHROID 150 mcg TAB PO SCH (09:15)
[2021-08-21] MEDS: NS 1/2 1000 ML IV 1,000 ML IV SCH (11:07)
[2021-08-21] MEDS ORDERED: NS 1/2 1000 ML IV 1,000 ML IV ONE (12:15)
[2021-08-21] MEDS: K-DUR TAB 20 MEQ PO PRN (12:18)
--- NOTE | 2021-08-21 12:24 | DR.CONSULT ---
Consult - Consultation for Day of: Date: 08/21/21 - Chief Complaint Chief Complaint: Patient referred for cirrhosis and ascites. Patient with complaints of nausea and diarrhea with lactulose. - History of Present Illness History of Present Illness: Patient is a 61 yo male who was referred for cirrhosis and ascites. Patient with complaints of nausea and diarrhea with lactulose. Patient denies dysphagia, dyspepsia, vomiting, abdominal pain, constipation, melena and hematochezia. Abdomen and pelvis CT showed cirrhosis with moderated ascites. Hgb 10.5, Hct 30.6, Plt 104, BUN 10 Creatinine 1.14, T. Bili 3.9 down from 4.1 yesterday (direct 0.9, Indirect 3.2), AST 79 ,ALT 48, ALP 107, Ammonia 44 - Past Medical History Past Medical History: Hypertension, Anxiety, Hypothyroidism, Hyperthyroidism, Kidney Stones, Gout - Past Surgical History Surgical History: Cholecystectomy - Family History Family Medical History: Hypertension - Social History Does patient currently use any type of tobacco product: No Have you used tobacco products in the last 12 months: No Type of Tobacco Use: None Does any household member use tobacco: No Alcohol Use: None Drug Use: None - Medications Home Medications: levofloxacin [From Levaquin] Allergy (Verified 07/29/21 07:31) CONTINUE taking the following medications bumetanide 1 mg PO BID 08/14/21 [History] cholecalciferol (vitamin D3) [Vitamin D3] 50,000 unit PO WEEKLY 08/14/21 [History] cyclobenzaprine [Flexeril] 10 mg PO HS 08/14/21 [History] famotidine 20 mg PO HS 08/14/21 [History] magnesium oxide 400 mg PO DAILY 08/14/21 [History] oxycodone 5 mg PO QID PRN 08/14/21 [History] - Review of Systems Gastrointestinal: See HPI, Nausea, Diarrhea. denies: Vomiting, Abdominal Pain, Constipation, Melena, Hematochezia, Other - Physical Exam Vital Signs: Temperature 98.0 F Pulse Rate [Left Brachial] 76 Respiratory Rate 19 Blood Pressure [Left Arm] 146/67 Blood Pressure 108/51 O2 Sat by Pulse Oximetry 97 Oriented: Normal Eyes: Normal Ear: Normal Nose: Normal Throat: Normal Respiratory: Clear Throughout Cardiovascular: Normal Auscultation: Bowel Sounds: Normal Palpation: Normal. negative: Spleen Enlarged, Liver Enlarged, Mass Pulsatile Tenderness: Normal (non tender) Skin: Normal Musculoskeletal: Normal Psychiatric: Normal Mood Description: Calm, Appropriate Affect: Normal Speech Pattern: Clear, Appropriate - Plan Plan: Assessment. 1. Cirrhosis of unknown etiology. 2. Ascites secondary to cirrhosis. Plan. 1. Montior LFTs, Abnormal LFT panel, Hepatitis profile, NEVILLE fibrosure, follow up as outpatient. Plan reviewed with Dr. Silvestre - Allergies Allergies/Adverse Reactions: Allergies Allergy/AdvReac Type Severity Reaction Status Date / Time levofloxacin [From Levaquin] Allergy Verified 07/29/21 07:31
[2021-08-21] MEDS: PEPCID TAB 20 MG PO SCH (20:46)
[2021-08-21] MEDS: CELEXA PO SCH (20:46)
[2021-08-21] MEDS: FLEXERIL TAB 10 MG PO SCH (20:46)
[2021-08-21] MEDS: AMBIEN PO SCH (20:47)
[2021-08-21] MEDS: COLACE CAP 100 MG PO SCH (20:47)
[2021-08-22] MEDS ORDERED: NS 1/2 1000 ML IV 1,000 ML IV ONE (03:15)
[2021-08-22] MEDS: NS 1/2 1000 ML IV 1,000 ML IV SCH ×2 (05:38)
[2021-08-22] MEDS: CHRONULAC PO SCH (05:40)
[2021-08-22 06:19] LABS: BASOPHILS % (AUTO) 0.5 % (0.2-1.0); EOSINOPHILS # (AUTO) 0.6 x10^3/uL (0.0-0.2); EOSINOPHILS % (AUTO) 9.7 % (0.9-2.9); HEMATOCRIT 29.6 % (42.0-54.0); HEMOGLOBIN 10.3 g/dL (13.5-18.0); LYMPHOCYTES # (AUTO) 2.3 X10^3/uL (1.3-2.9); LYMPHOCYTES % (AUTO) 39.4 % (21.0-51.0); MEAN CORPUSCULAR HGB CONC 34.7 g/dL (33.0-35.0); MEAN CORPUSCULAR VOLUME 95.1 fL (80.0-100.0); MEAN PLATELET VOLUME 6.6 fL (7.4-11.0); MONOCYTES # (AUTO) 0.6 x10^3/uL (0.3-0.8); MONOCYTES % (AUTO) 10.7 % (0.0-13.0); NEUTROPHILS # (AUTO) 2.3 x10^3/uL (2.2-4.8); NEUTROPHILS % (AUTO) 39.7 % (42.0-75.0); PLATELET COUNT 98 X10^3/uL (150.0-450.0); RED BLOOD COUNT 3.12 X10^6/uL (4.7-6.0); RED CELL DISTRIBUTION WIDTH 16.9 % (11.6-16.5); WHITE BLOOD COUNT 5.9 X10^3/uL (3.6-10.0)
[2021-08-22 06:34] LABS: ALANINE AMINOTRANSFERASE 52 Units/L (12-78); ALBUMIN 2.9 g/dL (3.4-5.0); ALKALINE PHOSPHATASE 97 Units/L (46-116); ASPARTATE AMINO TRANSFERASE 81 Units/L (15-37); BLOOD UREA NITROGEN 8 mg/dL (7-18); CALCIUM 8.2 mg/dL (8.5-10.1); CARBON DIOXIDE 20.5 mmol/L (21-32); CHLORIDE 112 mmol/L (98-107); COR CA(FOR HYPOALB) 9.1 mg/dL (8.5-10.1); CREATININE 1.08 mg/dL (0.70-1.30); SODIUM 144 mmol/L (136-145); TOTAL PROTEIN 5.1 g/dL (6.4-8.2); eGFR NON BLACK RACES > 60 (>60)
[2021-08-22 06:37] LABS: AMMONIA 65 umol/L (11-32)
[2021-08-22 08:17] VITALS: BP 148/65
[2021-08-22] MEDS: MAG-OX TAB PO SCH (08:58)
[2021-08-22] MEDS: SYNTHROID 150 mcg TAB PO SCH (08:58)
[2021-08-22] MEDS: ALBUMIN HUMAN 25%- 100 ML 100 ML IV SCH (08:58)
[2021-08-25 08:42] LABS: HEPATITIS B SURFACE ANTIGEN Negative (Negative)
[2021-08-25 08:45] LABS: ANTI-NUCLEAR ANTIBODY TEST None Detected (None Detected)
== END 2021-08-22 12:00 | disposition home health service (06) | DRG 432 ==
LOC: OBS → OBSVTOIN 12:25 → MED/SURG 13:41
PROVIDERS: ADMIT Internal Medicine; ATTEND Internal Medicine
DX: N17.8 Other acute kidney failure; R42 Dizziness and giddiness; R26.89 Other abnormalities of gait and mobility; K70.40 Alcoholic hepatic failure without coma; Z20.822 Contact with and (suspected) exposure to COVID-19; I26.99 Other pulmonary embolism without acute cor pulmonale; R06.02 Shortness of breath; K70.31 Alcoholic cirrhosis of liver with ascites; R60.0 Localized edema; R29.6 Repeated falls; I95.89 Other hypotension; E03.8 Other specified hypothyroidism

== ENCOUNTER 2021-09-07 12:26 | Inpatient (IN) ==
--- NOTE | 2021-09-07 12:35 | DR.EXTPAIN ---
HPI Time seen Time Seen by Provider: 09/07/21 12:30 PMH PMH Past Medical History: Anxiety, Gout, Hypertension, Hyperthyroidism, Hypothyroidism and Kidney Stones Past Surgical History: Yes Surgical History: Cholecystectomy Family History Family Medical History: Hypertension Social History Do you use any recreational Drugs:: No ROS Review of Systems Constitutional: No Symptoms Reported Eyes: No Symptoms Reported ENTM: No Symptoms Reported Respiratoy: No Symptoms Reported Cardiovascular: No Symptoms Reported Gastrointestinal/Abdominal: No Symptoms Reported Genitourinary: No Symptoms Reported Neurological: No Symptoms Reported Musculoskeletal: No Symptoms Reported Integumentary: No Symptoms Reported Hematologic/Lymphatic: No Symptoms Reported Endocrine: No Symptoms Reported Psychiatric: No Symptoms Reported All Other Systems: Reviewed and Negative PE Vital Signs Vitals: Temperature 98.4 F Pulse Rate 86 Respiratory Rate 17 Blood Pressure [Left Arm] 148/65 Blood Pressure 142/65 O2 Sat by Pulse Oximetry 98 General Limitations: No Limitations General Appearance: Alert and In No Apparent Distress Head Head Exam: Normal Inspection Eyes Eye exam: Normal Appearance ENT ENT Exam: Normal Exam Neck Neck Exam: Normal Inspection Chest Chest Inspection: Normal Inspection Respiratory Respiratory Exam: Normal Lung Sounds Bilat Cardiovascular Cardiovascular Exam: Regular Rate and Normal Rhythm Abdominal Exam Abdominal Exam: Normal Inspection, Normal Bowel Sounds and Soft Extremities Extremities Exam: Normal Inspection Back Back Exam: Normal Inspection Neurological Neurological Exam: Alert, Oriented X3 and CN II-XII Intact Psychiatric Psychiatric Exam: Normal Affect and Normal Mood Skin Skin Exam: Warm, Dry, Intact and Normal Color ROR Labs Reviewed Result Diagrams: 09/07/21 13:58 09/07/21 13:58 Laboratory: WBC 10.3 X10^3/uL (3.6-10.0) H 09/07/21 13:58 RBC 3.21 X10^6/uL (4.7-6.0) L 09/07/21 13:58 Hgb 10.7 g/dL (13.5-18.0) L 09/07/21 13:58 Hct 30.5 % (42.0-54.0) L 09/07/21 13:58 MCV 95.0 fL (80.0-100.0) 09/07/21 13:58 MCH 33.5 pg (27.0-34.0) 09/07/21 13:58 MCHC 35.3 g/dL (33.0-35.0) H 09/07/21 13:58 RDW 17.4 % (11.6-16.5) H 09/07/21 13:58 Plt Count 117 X10^3/uL (150.0-450.0) L 09/07/21 13:58 MPV 6.7 fL (7.4-11.0) L 09/07/21 13:58 Neut % (Auto) 60.0 % (42.0-75.0) 09/07/21 13:58 Lymph % (Auto) 25.5 % (21.0-51.0) 09/07/21 13:58 [place] % (Auto) 11.6 % (0.0-13.0) 09/07/21 13:58 Eos % (Auto) 2.4 % (0.9-2.9) 09/07/21 13:58 Baso % (Auto) 0.5 % (0.2-1.0) 09/07/21 13:58 Neut # (Auto) 6.2 x10^3/uL (2.2-4.8) H 09/07/21 13:58 Lymph # (Auto) 2.6 X10^3/uL (1.3-2.9) 09/07/21 13:58 [place] # (Auto) 1.2 x10^3/uL (0.3-0.8) H 09/07/21 13:58 Eos # (Auto) 0.2 x10^3/uL (0.0-0.2) 09/07/21 13:58 Baso # (Auto) 0.0 X10^3/uL (0.0-0.1) 09/07/21 13:58 Absolute Nucleated RBC 0.1 /100WBC 09/07/21 13:58 Sodium 140 mmol/L (136-145) 09/07/21 13:58 Corrected Sodium TNP 09/07/21 13:58 Potassium 3.1 mmol/L (3.5-5.1) L 09/07/21 13:58 Chloride 103 mmol/L (98-107) 09/07/21 13:58 Carbon Dioxide 26.9 mmol/L (21-32) 09/07/21 13:58 BUN 30 mg/dL (7-18) H 09/07/21 13:58 Creatinine 1.75 mg/dL (0.70-1.30) H 09/07/21 13:58 Est GFR (MDRD) Af Amer 52 (>60) L 09/07/21 13:58 Est GFR (MDRD) Non-Af 43 (>60) L 09/07/21 13:58 Glucose 105 mg/dL (65-99) H 09/07/21 13:58 Calcium 8.1 mg/dL (8.5-10.1) L 09/07/21 13:58 Corrected Calcium 9.4 mg/dL (8.5-10.1) 09/07/21 13:58 Total Bilirubin 4.60 mg/dL (0.2-1.0) H 09/07/21 13:58 AST 27 Units/L (15-37) 09/07/21 13:58 ALT 14 Units/L (12-78) 09/07/21 13:58 Alkaline Phosphatase 122 Units/L (46-116) H 09/07/21 13:58 Ammonia 56 umol/L (11-32) H 09/07/21 13:58 Creatine Kinase 31 Units/L (39-308) L 09/07/21 13:58 CK-MB (CK-2) < 1.0 ng/mL (0-4.0) 09/07/21 13:58 CK/CKMB % Calc 3.2 % (<4) 09/07/21 13:58 Troponin I 0.03 ng/mL (0-1.5) 09/07/21 13:58 B-Natriuretic Peptide 104 pg/mL (0-79) H 09/07/21 13:58 Total Protein 5.4 g/dL (6.4-8.2) L 09/07/21 13:58 Albumin 2.4 g/dL (3.4-5.0) L 09/07/21 13:58 Globulin 3.0 g/dL (2.5-4.5) 09/07/21 13:58 Albumin/Globulin Ratio 0.8 Ratio (1.1-2.1) L 09/07/21 13:58 SARS-CoV-2 (PCR) Negative (NEGATIVE) 09/07/21 16:48 Influenza Type A (PCR) Negative (NEGATIVE) 09/07/21 16:48 Influenza Type B (PCR) Negative (NEGATIVE) 09/07/21 16:48 RSV (PCR) Negative (NEGATIVE) 09/07/21 16:48 Opioid Opioid Risk Tool Age (Quique box if 16-45): No History of Preadolescent Sexual Abuse: No Total: 0 Total Score Risk Category: Low Risk Copyright: [facility] predicting aberrant behaviors Diagnosis Discharge Problem: Encephalopathy, hepatic, Generalized weakness Knee sprain Qualifiers: Encounter type: initial encounter Involved ligament of knee: unspecified ligament Laterality: left Qualified Code(s): S83.92XA - Sprain of unspecified site of left knee, initial encounter Instructions Forms: Precautions for COVID19 [facility] Patient Portal Social Distancing
--- NOTE | 2021-09-07 13:43 | RAD ---
Exam:KNEE COMPLETE, LEFTIndication: FALL, DIZZINESS, CONFUSIONComparison: [None available]FINDINGSThere is linear lucency within the lateral tibial plateau extending to the articular surface seen best on AP projection. 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 Further evaluation with left knee CT is recommended.Moderate medial and lateral femorotibial compartment osteoarthrosis.Electronically signed by: IAIN ADAM (Sep 07, 2021 13:41:58)
--- NOTE | 2021-09-07 13:46 | CT ---
HISTORYFALL, DIZZY, CONFUSIONSTUDYBRAIN W/O CONCOMPARISONNone.TECHNIQUEMultiple axial images of the head were performed from the skullbase to the vertex using standard departmental protocol. Sagittal and coronal reformatted images were performed. Dose reduction techniques including Automated Exposure Control (AEC) and adjustment of mA and kV were utilized.FINDINGSThe lateral ventricles and basilar cisterns are patent.No parenchymal mass or hematoma. Bush-white differentiation appears acutely preserved.No extra-axial collection.The globes are intact but proptotic.The paranasal sinuses and mastoid air cells are clear.The calvarium is intact.IMPRESSIONNo acute intracranial abnormality.Globe proptosis, most commonly seen with thyroid disease.Electronically signed by: Charlie Muro (Sep 07, 2021 13:44:58)
[2021-09-07 14:23] LABS: BASOPHILS % (AUTO) 0.5 % (0.2-1.0); EOSINOPHILS # (AUTO) 0.2 x10^3/uL (0.0-0.2); EOSINOPHILS % (AUTO) 2.4 % (0.9-2.9); HEMATOCRIT 30.5 % (42.0-54.0); HEMOGLOBIN 10.7 g/dL (13.5-18.0); LYMPHOCYTES # (AUTO) 2.6 X10^3/uL (1.3-2.9); LYMPHOCYTES % (AUTO) 25.5 % (21.0-51.0); MEAN CORPUSCULAR HEMOGLOBIN 33.5 pg (27.0-34.0); MEAN CORPUSCULAR HGB CONC 35.3 g/dL (33.0-35.0); MEAN PLATELET VOLUME 6.7 fL (7.4-11.0); MONOCYTES # (AUTO) 1.2 x10^3/uL (0.3-0.8); MONOCYTES % (AUTO) 11.6 % (0.0-13.0); NEUTROPHILS # (AUTO) 6.2 x10^3/uL (2.2-4.8); PLATELET COUNT 117 X10^3/uL (150.0-450.0); RED BLOOD COUNT 3.21 X10^6/uL (4.7-6.0); RED CELL DISTRIBUTION WIDTH 17.4 % (11.6-16.5); WHITE BLOOD COUNT 10.3 X10^3/uL (3.6-10.0)
[2021-09-07 14:30] LABS: AMMONIA 56 umol/L (11-32)
[2021-09-07 14:41] LABS: ALANINE AMINOTRANSFERASE 14 Units/L (12-78); ALBUMIN 2.4 g/dL (3.4-5.0); ALKALINE PHOSPHATASE 122 Units/L (46-116); ASPARTATE AMINO TRANSFERASE 27 Units/L (15-37); BLOOD UREA NITROGEN 30 mg/dL (7-18); CALCIUM 8.1 mg/dL (8.5-10.1); CARBON DIOXIDE 26.9 mmol/L (21-32); CHLORIDE 103 mmol/L (98-107); CKMB % 3.2 % (<4); COR CA(FOR HYPOALB) 9.4 mg/dL (8.5-10.1); CREATINE KINASE 31 Units/L (39-308); CREATINE KINASE MB < 1.0 ng/mL (0-4.0); CREATININE 1.75 mg/dL (0.70-1.30); TOTAL PROTEIN 5.4 g/dL (6.4-8.2); TROPONIN I 0.03 ng/mL (0-1.5); eGFR NON BLACK RACES 43 (>60)
[2021-09-07 14:42] LABS: SODIUM 140 mmol/L (136-145)
--- NOTE | 2021-09-07 14:55 | CT ---
Exam:LOWER EXT W/O CONIndication: LEFT KNEE SWELLING, PAIN, ABNORMAL X-RAYComparison: Radiographs performed earlier on same day]Technique: Axial images of the [left knee] were obtained with coronal and sagittal reformatted images performed. Intravenous contrast administration [was not] performed.Dose reduction techniques including Automated Exposure Control (AEC) and adjustment of mA and kV were utilized.Findings: Previously described cortical irregularity and lucency on radiographic evaluation is secondary to degenerative change/bony remodeling. There is no acute fracture left knee.Moderate to advanced medial and lateral femorotibial compartment osteoarthrosis evidence by joint space loss osteophyte formation and subcortical sclerosis. Moderate lateral and mild medial femorotibial compartment chondrocalcinosis. Zvnk-[id number]-[id number] patellofemoral compartment degenerative change with subchondral sclerosis and osteophyte formation.Small suprapatellar joint effusion. 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 Small popliteal fossa cyst. No localizing fluid collection within the subcutaneous tissues of the left knee. Varicose vein/collateral vessels are noted within the left knee.]IMPRESSIONNo acute fracture or malalignment of the left knee.Moderate to advanced medial and lateral femorotibial and mild to moderate patellofemoral compartment osteoarthrosis.Small suprapatellar joint effusion.Small popliteal fossa cyst.Electronically signed by: IAIN ADAM (Sep 07, 2021 14:53:30)
--- NOTE | 2021-09-07 17:58 | RAD ---
HISTORYRecent fallSTUDYCHEST, 1 VIEWCOMPARISONNone availableFINDINGSThe trachea is midline. The cardiac silhouette is enlarged, unchanged. The lungs are clear without focal infiltrate or effusion. The bony thorax is unremarkable.IMPRESSIONStable cardiomegaly without evidence of acute airspace disease or CHF.Electronically signed by: IAIN ADAM (Sep 07, 2021 17:56:42)
--- NOTE | 2021-09-07 18:25 | DR.EXTPAIN ---
HPI Time seen Time Seen by Provider: 09/07/21 12:30 Complaint/Symptoms Chief Complaint:: Pt reports falling 2 days ago, states he got dizzy while ambulating, fell onto his L knee, got a skin tear on the L forearm, and hit his chin on the table. Pt has bruising to the chin. Per , pt seems more confused than normal and swelling in his legs is worse. COVID-19 Coronavirus risk:travel/contact w/high risk person: No Has patient experienced Coronavirus symptoms: No Source History Provided: Patient, Family Member and EMS Mode of arrival Mode of Arrival: EMS Timing Onset of Chief Complaint: 09/05/21 PMH PMH Past Medical History: Yes Past Medical History: Anxiety, Gout, Hypertension, Hyperthyroidism, Hypothyroidism and Kidney Stones Past Surgical History: Yes Surgical History: Cholecystectomy Family History History of Family Medical Conditions: Yes Family Medical History: Hypertension Social History Alcohol Use: None Do you use any recreational Drugs:: No Lives Where: Home Travel Risk Coronavirus risk:travel/contact w/high risk person: No Has patient experienced Coronavirus symptoms: No Infectious screening In the last 2 months have you had wt loss of >10#?: NO Have you had fever, night sweats or hemotysis?: No Have you traveled outside the country in the last 6 months?: No Isolation: Standard ROS Review of Systems Constitutional: No Symptoms Reported and See HPI Eyes: No Symptoms Reported and See HPI ENTM: No Symptoms Reported and See HPI Respiratoy: No Symptoms Reported and See HPI Cardiovascular: No Symptoms Reported and See HPI Gastrointestinal/Abdominal: No Symptoms Reported and See HPI Genitourinary: No Symptoms Reported and See HPI Neurological: No Symptoms Reported and See HPI Musculoskeletal: No Symptoms Reported and See HPI Integumentary: No Symptoms Reported and See HPI Hematologic/Lymphatic: No Symptoms Reported and See HPI Endocrine: No Symptoms Reported and See HPI Psychiatric: No Symptoms Reported and See HPI All Other Systems: Reviewed and Negative PE Vital Signs Vitals: Temperature 98.4 F Pulse Rate 86 Respiratory Rate 17 Blood Pressure [Left Arm] 148/65 Blood Pressure 142/65 O2 Sat by Pulse Oximetry 98 General Limitations: No Limitations General Appearance: Alert and In No Apparent Distress Head Head Exam: Normal Inspection Eyes Eye exam: Normal Appearance ENT ENT Exam: Normal Exam Neck Neck Exam: Normal Inspection Chest Chest Inspection: Normal Inspection Respiratory Respiratory Exam: Normal Lung Sounds Bilat Cardiovascular Cardiovascular Exam: Regular Rate and Normal Rhythm Abdominal Exam Abdominal Exam: Normal Inspection, Normal Bowel Sounds and Soft Extremities Extremities Exam: Normal Inspection Back Back Exam: Normal Inspection Neurological Neurological Exam: Alert, Oriented X3 and CN II-XII Intact Psychiatric Psychiatric Exam: Normal Affect and Normal Mood Skin Skin Exam: Warm, Dry, Intact and Normal Color MDM Differential Diagnosis Differential Diagnosis: Contusion, Fracture, Sprain and Other (HEPATIC ENCEP HALOPATHY.) COURSE Treatment Treatment: SEE ORDERS. ROR Labs Reviewed Laboratory Results Reviewed?: Yes Result Diagrams: 09/07/21 13:58 09/07/21 13:58 Laboratory: WBC 10.3 X10^3/uL (3.6-10.0) H 09/07/21 13:58 RBC 3.21 X10^6/uL (4.7-6.0) L 09/07/21 13:58 Hgb 10.7 g/dL (13.5-18.0) L 09/07/21 13:58 Hct 30.5 % (42.0-54.0) L 09/07/21 13:58 MCV 95.0 fL (80.0-100.0) 09/07/21 13:58 MCH 33.5 pg (27.0-34.0) 09/07/21 13:58 MCHC 35.3 g/dL (33.0-35.0) H 09/07/21 13:58 RDW 17.4 % (11.6-16.5) H 09/07/21 13:58 Plt Count 117 X10^3/uL (150.0-450.0) L 09/07/21 13:58 MPV 6.7 fL (7.4-11.0) L 09/07/21 13:58 Neut % (Auto) 60.0 % (42.0-75.0) 09/07/21 13:58 Lymph % (Auto) 25.5 % (21.0-51.0) 09/07/21 13:58 [place] % (Auto) 11.6 % (0.0-13.0) 09/07/21 13:58 Eos % (Auto) 2.4 % (0.9-2.9) 09/07/21 13:58 Baso % (Auto) 0.5 % (0.2-1.0) 09/07/21 13:58 Neut # (Auto) 6.2 x10^3/uL (2.2-4.8) H 09/07/21 13:58 Lymph # (Auto) 2.6 X10^3/uL (1.3-2.9) 09/07/21 13:58 [place] # (Auto) 1.2 x10^3/uL (0.3-0.8) H 09/07/21 13:58 Eos # (Auto) 0.2 x10^3/uL (0.0-0.2) 09/07/21 13:58 Baso # (Auto) 0.0 X10^3/uL (0.0-0.1) 09/07/21 13:58 Absolute Nucleated RBC 0.1 /100WBC 09/07/21 13:58 Sodium 140 mmol/L (136-145) 09/07/21 13:58 Corrected Sodium TNP 09/07/21 13:58 Potassium 3.1 mmol/L (3.5-5.1) L 09/07/21 13:58 Chloride 103 mmol/L (98-107) 09/07/21 13:58 Carbon Dioxide 26.9 mmol/L (21-32) 09/07/21 13:58 BUN 30 mg/dL (7-18) H 09/07/21 13:58 Creatinine 1.75 mg/dL (0.70-1.30) H 09/07/21 13:58 Est GFR (MDRD) Af Amer 52 (>60) L 09/07/21 13:58 Est GFR (MDRD) Non-Af 43 (>60) L 09/07/21 13:58 Glucose 105 mg/dL (65-99) H 09/07/21 13:58 Calcium 8.1 mg/dL (8.5-10.1) L 09/07/21 13:58 Corrected Calcium 9.4 mg/dL (8.5-10.1) 09/07/21 13:58 Total Bilirubin 4.60 mg/dL (0.2-1.0) H 09/07/21 13:58 AST 27 Units/L (15-37) 09/07/21 13:58 ALT 14 Units/L (12-78) 09/07/21 13:58 Alkaline Phosphatase 122 Units/L (46-116) H 09/07/21 13:58 Ammonia 56 umol/L (11-32) H 09/07/21 13:58 Creatine Kinase 31 Units/L (39-308) L 09/07/21 13:58 CK-MB (CK-2) < 1.0 ng/mL (0-4.0) 09/07/21 13:58 CK/CKMB % Calc 3.2 % (<4) 09/07/21 13:58 Troponin I 0.03 ng/mL (0-1.5) 09/07/21 13:58 B-Natriuretic Peptide 104 pg/mL (0-79) H 09/07/21 13:58 Total Protein 5.4 g/dL (6.4-8.2) L 09/07/21 13:58 Albumin 2.4 g/dL (3.4-5.0) L 09/07/21 13:58 Globulin 3.0 g/dL (2.5-4.5) 09/07/21 13:58 Albumin/Globulin Ratio 0.8 Ratio (1.1-2.1) L 09/07/21 13:58 SARS-CoV-2 (PCR) Negative (NEGATIVE) 09/07/21 16:48 Influenza Type A (PCR) Negative (NEGATIVE) 09/07/21 16:48 Influenza Type B (PCR) Negative (NEGATIVE) 09/07/21 16:48 RSV (PCR) Negative (NEGATIVE) 09/07/21 16:48 XRAY XRAY Interpreted by: Radiologist (REPORTS NOTED AND DISCUSSED WITH PATIENT.) and Self Opioid Opioid Risk Tool Age (Quique box if 16-45): No History of Preadolescent Sexual Abuse: No Total: 0 Total Score Risk Category: Low Risk Copyright: Gilberto RODRIGUES predicting aberrant behaviors Diagnosis Discharge Problem: Encephalopathy, hepatic, Generalized weakness Knee sprain Qualifiers: Encounter type: initial encounter Involved ligament of knee: unspecified ligament Laterality: left Qualified Code(s): S83.92XA - Sprain of unspecified site of left knee, initial encounter Instructions Forms: Precautions for COVID19 [facility] Social Distancing
[2021-09-07] MEDS: CELEXA PO SCH (20:27)
[2021-09-07] MEDS: AMBIEN PO SCH (20:27)
[2021-09-07] MEDS: FLEXERIL TAB 10 MG PO SCH (20:27)
[2021-09-07] MEDS: FLOMAX PO SCH (20:27)
[2021-09-07] MEDS: PEPCID TAB 20 MG PO SCH (20:28)
[2021-09-07] MEDS: LASIX PO SCH (20:28)
[2021-09-07] MEDS: CHRONULAC PO SCH (22:04)
[2021-09-07 22:12] LABS: BLOOD UREA NITROGEN 30 mg/dL (7-18); CARBON DIOXIDE 25.7 mmol/L (21-32); CHLORIDE 104 mmol/L (98-107); CREATININE 1.82 mg/dL (0.70-1.30); MAGNESIUM 1.2 mg/dL (1.7-2.9); SODIUM 140 mmol/L (136-145); eGFR NON BLACK RACES 41 (>60)
[2021-09-07 22:30] LABS: CKMB % 2.8 % (<4); CREATINE KINASE 36 Units/L (39-308); CREATINE KINASE MB < 1.0 ng/mL (0-4.0); TROPONIN I 0.03 ng/mL (0-1.5)
[2021-09-07] MEDS: MAGNESIUM SULFATE 1 GRAM/100 mL PREMIX 1 G/100 ML BAG IV PRN (22:45)
[2021-09-08] MEDS: ROXICODONE TAB 5 MG PO PRN (02:46)
[2021-09-08] MEDS: CHRONULAC PO SCH ×3 (05:50→21:17)
[2021-09-08 06:30] LABS: BASOPHILS % (AUTO) 0.3 % (0.2-1.0); EOSINOPHILS # (AUTO) 0.3 x10^3/uL (0.0-0.2); EOSINOPHILS % (AUTO) 3.2 % (0.9-2.9); HEMATOCRIT 28.4 % (42.0-54.0); HEMOGLOBIN 9.9 g/dL (13.5-18.0); LYMPHOCYTES # (AUTO) 3.3 X10^3/uL (1.3-2.9); LYMPHOCYTES % (AUTO) 30.4 % (21.0-51.0); MEAN CORPUSCULAR HEMOGLOBIN 33.3 pg (27.0-34.0); MEAN CORPUSCULAR HGB CONC 34.7 g/dL (33.0-35.0); MEAN CORPUSCULAR VOLUME 95.8 fL (80.0-100.0); MEAN PLATELET VOLUME 6.9 fL (7.4-11.0); MONOCYTES # (AUTO) 1.1 x10^3/uL (0.3-0.8); MONOCYTES % (AUTO) 10.4 % (0.0-13.0); NEUTROPHILS % (AUTO) 55.7 % (42.0-75.0); PLATELET COUNT 110 X10^3/uL (150.0-450.0); RED BLOOD COUNT 2.97 X10^6/uL (4.7-6.0); RED CELL DISTRIBUTION WIDTH 17.3 % (11.6-16.5); WHITE BLOOD COUNT 10.8 X10^3/uL (3.6-10.0)
[2021-09-08 06:34] LABS: ALANINE AMINOTRANSFERASE 11 Units/L (12-78); ALBUMIN 2.3 g/dL (3.4-5.0); ALKALINE PHOSPHATASE 114 Units/L (46-116); ASPARTATE AMINO TRANSFERASE 24 Units/L (15-37); BLOOD UREA NITROGEN 30 mg/dL (7-18); CALCIUM 7.9 mg/dL (8.5-10.1); CARBON DIOXIDE 28.6 mmol/L (21-32); CHLORIDE 104 mmol/L (98-107); CKMB % 2.9 % (<4); COR CA(FOR HYPOALB) 9.3 mg/dL (8.5-10.1); CREATINE KINASE 34 Units/L (39-308); CREATINE KINASE MB < 1.0 ng/mL (0-4.0); CREATININE 1.81 mg/dL (0.70-1.30); MAGNESIUM 1.4 mg/dL (1.7-2.9); SODIUM 141 mmol/L (136-145); TOTAL PROTEIN 5.2 g/dL (6.4-8.2); TROPONIN I < 0.02 ng/mL (0-1.5); eGFR NON BLACK RACES 41 (>60)
[2021-09-08] MEDS ORDERED: PATIENT'S HOME MEDICATION (Losartan-Hydrochlorothiazide 100-25 mg tablet) PO SCH (09:00)
[2021-09-08] MEDS: MAG-OX TAB PO SCH (09:31)
[2021-09-08] MEDS: SYNTHROID 150 mcg TAB PO SCH (09:31)
[2021-09-08] MEDS: HYZAAR 50/12.5 MG PO SCH (09:32)
[2021-09-08] MEDS: LASIX PO SCH ×2 (09:32→20:48)
[2021-09-08 11:19] LABS: BILIRUBIN,URINE NEGATIVE (NEGATIVE); BLOOD/HEMOGLOBIN,URINE 5+ (NEGATIVE); GLUCOSE, URINE 2+ (NEGATIVE); KETONES,URINE NEGATIVE (NEGATIVE); LEUKOCYTE ESTERASE ,URINE NEGATIVE (NEGATIVE); NITRITES,URINE NEGATIVE (NEGATIVE); PROTEIN,URINE 1+ (NEGATIVE); UROBILINOGEN,URINE 2+ (NORMAL)
[2021-09-08 11:21] LABS: APPEARANCE,URINE CLEAR (CLEAR); COLOR,URINE DARK YELLOW (YELLOW)
[2021-09-08 11:29] LABS: BACTERIA,URINE TRACE /HPF (NEGATIVE); HYALINE CASTS, URINE FEW /LPF (NEGATIVE); MUCUS,URINE FEW /HPF (NEGATIVE); SQUAMOUS EPITHELIAL CELL,UR RARE /HPF (NEGATIVE)
--- NOTE | 2021-09-08 11:37 | RAD ---
HISTORYABD DISTENTION, CIRRHOSIS, HEPATIC ENCEPHALOPATHY Relevant Clinical InformationSTUDYKUBCOMPARISONF INDINGSEvaluation of the abdomen demonstrates a normal bowel gas pattern. An IVC filter is in place to the right of L2-3. The lung bases are clear. No pathological soft tissue mass or calcification can be observed. The bony structures are grossly intact.IMPRESSIONNo evidence for acute abdominal pathology identified. IVC filter in place.Electronically signed by: ILAN WOLFE (Sep 08, 2021 11:34:58)
[2021-09-08] MEDS ORDERED: K-RIDER 10 MEQ/NS 100 ML 10 MEQ/100 ML BAG IV PRN (12:03)
[2021-09-08] MEDS ORDERED: POTASSIUM CHL 40 MEQ/NS 0.45% 500 ML IV PRN (12:03)
[2021-09-08] MEDS ORDERED: POTASSIUM CHL 60 MEQ/NS 0.45% 500 ML IV PRN (12:03)
[2021-09-08] MEDS ORDERED: POTASSIUM CHLORIDE LIQ 20 MEQ UDC PO PRN (12:03)
[2021-09-08] MEDS ORDERED: MICRO K EXTEN CAP 10 MEQ PO PRN (12:03)
[2021-09-08] MEDS: MAGNESIUM SULFATE 1 GRAM/100 mL PREMIX 1 G/100 ML BAG IV PRN ×4 (12:06→15:50)
[2021-09-08] MEDS: KLOR-CON PO PRN (16:00)
[2021-09-08] MEDS: CELEXA PO SCH (20:48)
[2021-09-08] MEDS: AMBIEN PO SCH (20:48)
[2021-09-08] MEDS: PEPCID TAB 20 MG PO SCH (20:48)
[2021-09-08] MEDS: FLEXERIL TAB 10 MG PO SCH (20:49)
[2021-09-08] MEDS: FLOMAX PO SCH (20:49)
[2021-09-09] MEDS: KLOR-CON PO PRN (02:16)
[2021-09-09] MEDS: CHRONULAC PO SCH ×3 (05:22→21:09)
[2021-09-09] MEDS: ROXICODONE TAB 5 MG PO PRN ×2 (05:40→14:09)
[2021-09-09 06:04] LABS: BASOPHILS % (AUTO) 0.3 % (0.2-1.0); EOSINOPHILS # (AUTO) 0.5 x10^3/uL (0.0-0.2); EOSINOPHILS % (AUTO) 4.5 % (0.9-2.9); HEMATOCRIT 31.4 % (42.0-54.0); HEMOGLOBIN 10.7 g/dL (13.5-18.0); LYMPHOCYTES # (AUTO) 2.8 X10^3/uL (1.3-2.9); LYMPHOCYTES % (AUTO) 23.4 % (21.0-51.0); MEAN CORPUSCULAR HGB CONC 34.1 g/dL (33.0-35.0); MEAN CORPUSCULAR VOLUME 96.6 fL (80.0-100.0); MEAN PLATELET VOLUME 7.1 fL (7.4-11.0); MONOCYTES # (AUTO) 1.2 x10^3/uL (0.3-0.8); MONOCYTES % (AUTO) 10.2 % (0.0-13.0); NEUTROPHILS # (AUTO) 7.4 x10^3/uL (2.2-4.8); NEUTROPHILS % (AUTO) 61.6 % (42.0-75.0); PLATELET COUNT 113 X10^3/uL (150.0-450.0); RED BLOOD COUNT 3.25 X10^6/uL (4.7-6.0); RED CELL DISTRIBUTION WIDTH 17.4 % (11.6-16.5); WHITE BLOOD COUNT 12.1 X10^3/uL (3.6-10.0)
[2021-09-09 06:22] LABS: ALBUMIN 2.5 g/dL (3.4-5.0); CALCIUM 8.2 mg/dL (8.5-10.1); CARBON DIOXIDE 22.9 mmol/L (21-32); COR CA(FOR HYPOALB) 9.4 mg/dL (8.5-10.1); CREATININE 2.36 mg/dL (0.70-1.30); MAGNESIUM 2.3 mg/dL (1.7-2.9); TOTAL PROTEIN 5.7 g/dL (6.4-8.2)
[2021-09-09] MEDS: HYZAAR 50/12.5 MG PO SCH (09:39)
[2021-09-09] MEDS: MAG-OX TAB PO SCH (09:39)
[2021-09-09] MEDS: SYNTHROID 150 mcg TAB PO SCH (09:39)
[2021-09-09] MEDS: LASIX PO SCH ×2 (09:39→20:30)
--- NOTE | 2021-09-09 11:53 | PCM.PROG ---
Progress Note Progress Note for Day of Date of Exam: 09/08/21 Subjective Subjective: Pt is a 61 year old male past medical history of cirrhosis admitted for altered mental status. On admission his ammonia level was elevated at 56. Labs/imaging: Wbc 10.8, Hgb 9.9, Plt 110, Na 141, K 3.0, Creatinine 1.81, Glucose 95, INR 1.72, Total bilirubin 4.30, Troponin negative, AST 24, ALT 11, ALKP 114, UA: negative. Per , pt has been taking lactulose at home but has not had a bowel movement in many days. He has also had decrease po intake. Will restart home medications and lactulose, Replete electrolytes, including potassium and magnesium. Will order KUB for further evaluation. Continue to closely monitor and follow up labs/imaging in the morning. Past Medical Family Social History Past Med/Fam/Surg Hx: No changes since H&P Allergies: Allergies levofloxacin [From Levaquin] Allergy (Verified 07/29/21 07:31) Review of Systems ROS: No change since H&P Vital Signs and I&O's Vital Signs: Temperature 98.0 F Pulse Rate [Radial] 88 Pulse Rate 85 Respiratory Rate 20 Blood Pressure [Right Arm] 115/55 Blood Pressure [Left Arm] 142/65 Blood Pressure 144/86 O2 Sat by Pulse Oximetry 93 Intake and Output: Intake & Output 09/06/21 09/07/21 09/08/21 09/09/21 23:59 23:59 23:59 23:59 Intake Total 100 / 100 1035 / 1035 500 / 500 Balance 100 / 100 1035 / 1035 500 / 500 Physical Exam Oriented: Normal Eyes: Normal Ear: Normal Nose: Normal Throat: Normal Respiratory: Normal : Normal Auscultation: Bowel Sounds: Normal Palpation: Normal Tenderness: Normal Skin: Normal Musculoskeletal: Normal Mood Description: Calm Speech Pattern: Clear and Appropriate Laboratory and Diagnostics Result Diagrams: 09/09/21 05:30 09/09/21 05:30 Labs: Laboratory WBC 12.1 X10^3/uL (3.6-10.0) H 09/09/21 05:30 RBC 3.25 X10^6/uL (4.7-6.0) L 09/09/21 05:30 Hgb 10.7 g/dL (13.5-18.0) L 09/09/21 05:30 Hct 31.4 % (42.0-54.0) L 09/09/21 05:30 MCV 96.6 fL (80.0-100.0) 09/09/21 05:30 MCH 33.0 pg (27.0-34.0) 09/09/21 05:30 MCHC 34.1 g/dL (33.0-35.0) 09/09/21 05:30 RDW 17.4 % (11.6-16.5) H 09/09/21 05:30 Plt Count 113 X10^3/uL (150.0-450.0) L 09/09/21 05:30 MPV 7.1 fL (7.4-11.0) L 09/09/21 05:30 Neut % (Auto) 61.6 % (42.0-75.0) 09/09/21 05:30 Lymph % (Auto) 23.4 % (21.0-51.0) 09/09/21 05:30 [place] % (Auto) 10.2 % (0.0-13.0) 09/09/21 05:30 Eos % (Auto) 4.5 % (0.9-2.9) H 09/09/21 05:30 Baso % (Auto) 0.3 % (0.2-1.0) 09/09/21 05:30 Neut # (Auto) 7.4 x10^3/uL (2.2-4.8) H 09/09/21 05:30 Lymph # (Auto) 2.8 X10^3/uL (1.3-2.9) 09/09/21 05:30 [place] # (Auto) 1.2 x10^3/uL (0.3-0.8) H 09/09/21 05:30 Eos # (Auto) 0.5 x10^3/uL (0.0-0.2) H 09/09/21 05:30 Baso # (Auto) 0.0 X10^3/uL (0.0-0.1) 09/09/21 05:30 Absolute Nucleated RBC 0.0 /100WBC 09/09/21 05:30 PT 19.3 SECONDS (11.8-14.3) 09/08/21 05:38 INR Target Range - 09/08/21 05:38 INR 1.72 (0.8-1.3) H 09/08/21 05:38 APTT 43.4 SECONDS (22.9-36.5) H 09/08/21 05:38 PTT Comment - 09/08/21 05:38 Sodium 141 mmol/L (136-145) 09/09/21 05:30 Corrected Sodium 142 mmol/L (136-145) 09/09/21 05:30 Potassium 3.5 mmol/L (3.5-5.1) 09/09/21 05:30 Chloride 105 mmol/L (98-107) 09/09/21 05:30 Carbon Dioxide 22.9 mmol/L (21-32) 09/09/21 05:30 BUN 32 mg/dL (7-18) H 09/09/21 05:30 Creatinine 2.36 mg/dL (0.70-1.30) H 09/09/21 05:30 Est GFR (MDRD) Af Amer 37 (>60) L 09/09/21 05:30 Est GFR (MDRD) Non-Af 30 (>60) L 09/09/21 05:30 Glucose 122 mg/dL (65-99) H 09/09/21 05:30 Calcium 8.2 mg/dL (8.5-10.1) L 09/09/21 05:30 Corrected Calcium 9.4 mg/dL (8.5-10.1) 09/09/21 05:30 Magnesium 2.3 mg/dL (1.7-2.9) 09/09/21 05:30 Total Bilirubin 4.40 mg/dL (0.2-1.0) H 09/09/21 05:30 AST 26 Units/L (15-37) 09/09/21 05:30 ALT 14 Units/L (12-78) 09/09/21 05:30 Alkaline Phosphatase 125 Units/L (46-116) H 09/09/21 05:30 Ammonia 56 umol/L (11-32) H 09/07/21 13:58 Creatine Kinase 34 Units/L (39-308) L 09/08/21 05:38 CK-MB (CK-2) < 1.0 ng/mL (0-4.0) 09/08/21 05:38 CK/CKMB % Calc 2.9 % (<4) 09/08/21 05:38 Troponin I < 0.02 ng/mL (0-1.5) 09/08/21 05:38 B-Natriuretic Peptide 104 pg/mL (0-79) H 09/07/21 13:58 Total Protein 5.7 g/dL (6.4-8.2) L 09/09/21 05:30 Albumin 2.5 g/dL (3.4-5.0) L 09/09/21 05:30 Globulin 3.2 g/dL (2.5-4.5) 09/09/21 05:30 Albumin/Globulin Ratio 0.8 Ratio (1.1-2.1) L 09/09/21 05:30 Specimen Type Clean catch urine 09/08/21 11:12 Urine Color Dark yellow (YELLOW) 09/08/21 11:12 Urine Appearance Clear (CLEAR) 09/08/21 11:12 Urine pH 6.0 (5.0 - 8.0) 09/08/21 11:12 Ur Specific [place] 1.015 (1.000-1.030) 09/08/21 11:12 Urine Protein 1+ (NEGATIVE) 09/08/21 11:12 Urine Glucose (UA) 2+ (NEGATIVE) 09/08/21 11:12 Urine Ketones Negative (NEGATIVE) 09/08/21 11:12 Urine Occult Blood 5+ (NEGATIVE) 09/08/21 11:12 Urine Nitrite Negative (NEGATIVE) 09/08/21 11:12 Urine Bilirubin Negative (NEGATIVE) 09/08/21 11:12 Urine Urobilinogen 2+ (NORMAL) 09/08/21 11:12 Ur Leukocyte Esterase Negative (NEGATIVE) 09/08/21 11:12 Urine RBC 10-20 /HPF (0-3) A 09/08/21 11:12 Urine WBC 0-2 /HPF (0-5) 09/08/21 11:12 Ur Squamous Epith Cells Rare /HPF (NEGATIVE) 09/08/21 11:12 Urine Bacteria Trace /HPF (NEGATIVE) 09/08/21 11:12 Hyaline Casts Few /LPF (NEGATIVE) 09/08/21 11:12 Urine Mucus Few /HPF (NEGATIVE) 09/08/21 11:12 Ur Culture Indicated? No/not indicated 09/08/21 11:12 SARS-CoV-2 (PCR) Negative (NEGATIVE) 09/07/21 16:48 Influenza Type A (PCR) Negative (NEGATIVE) 09/07/21 16:48 Influenza Type B (PCR) Negative (NEGATIVE) 09/07/21 16:48 RSV (PCR) Negative (NEGATIVE) 09/07/21 16:48 Plan (1) Hepatic encephalopathy: Status: Acute Plan: continue lactulose
--- NOTE | 2021-09-09 12:03 | PCM.PROG ---
Progress Note Progress Note for Day of Date of Exam: 09/09/21 Subjective Subjective: Pt is a 61 year old male past medical history of cirrhosis admitted for altered mental status. On admission his ammonia level was elevated at 56. Pt did have bowel movement yesterday. Labs/imaging: Wbc 12.1, Hgb 10.7, Plt 113, Na 141, K 3.5, Creatinine 2.36, Glucose 122. Pt continues to have poor po intake. His home medications have been resumed and he is currently on lactulose. Replete electrolytes, including potassium and magnesium. KUB: No evidence for acute abdominal pathology identified. IVC filter in place. Will start patient on gentle hydration with IVF NS@75ml/h, and add antibiotics Rocephin for prophylaxis. Continue to closely monitor and follow up labs/imaging in the [facility]. Past Medical Family Social History Past Med/Fam/Surg Hx: No changes since H&P Allergies: Allergies levofloxacin [From Levaquin] Allergy (Verified 07/29/21 07:31) Review of Systems ROS: No change since H&P Vital Signs and I&O's Vital Signs: Temperature 98.0 F Pulse Rate [Radial] 88 Pulse Rate 85 Respiratory Rate 20 Blood Pressure [Right Arm] 115/55 Blood Pressure [Left Arm] 142/65 Blood Pressure 144/86 O2 Sat by Pulse Oximetry 93 Intake and Output: Intake & Output 09/06/21 09/07/21 09/08/21 09/09/21 23:59 23:59 23:59 23:59 Intake Total 100 / 100 1035 / 1035 500 / 500 Balance 100 / 100 1035 / 1035 500 / 500 Physical Exam Oriented: Normal Eyes: Normal Ear: Normal Nose: Normal Throat: Normal Respiratory: Normal Cardiovascular: Normal : Normal Auscultation: Bowel Sounds: Normal Tenderness: Normal Skin: Normal Musculoskeletal: Normal Mood Description: Calm Speech Pattern: Clear and Appropriate Laboratory and Diagnostics Result Diagrams: 09/10/21 05:05 09/10/21 05:05 Labs: Laboratory WBC 12.1 X10^3/uL (3.6-10.0) H 09/09/21 05:30 RBC 3.25 X10^6/uL (4.7-6.0) L 09/09/21 05:30 Hgb 10.7 g/dL (13.5-18.0) L 09/09/21 05:30 Hct 31.4 % (42.0-54.0) L 09/09/21 05:30 MCV 96.6 fL (80.0-100.0) 09/09/21 05:30 MCH 33.0 pg (27.0-34.0) 09/09/21 05:30 MCHC 34.1 g/dL (33.0-35.0) 09/09/21 05:30 RDW 17.4 % (11.6-16.5) H 09/09/21 05:30 Plt Count 113 X10^3/uL (150.0-450.0) L 09/09/21 05:30 MPV 7.1 fL (7.4-11.0) L 09/09/21 05:30 Neut % (Auto) 61.6 % (42.0-75.0) 09/09/21 05:30 Lymph % (Auto) 23.4 % (21.0-51.0) 09/09/21 05:30 [place] % (Auto) 10.2 % (0.0-13.0) 09/09/21 05:30 Eos % (Auto) 4.5 % (0.9-2.9) H 09/09/21 05:30 Baso % (Auto) 0.3 % (0.2-1.0) 09/09/21 05:30 Neut # (Auto) 7.4 x10^3/uL (2.2-4.8) H 09/09/21 05:30 Lymph # (Auto) 2.8 X10^3/uL (1.3-2.9) 09/09/21 05:30 [place] # (Auto) 1.2 x10^3/uL (0.3-0.8) H 09/09/21 05:30 Eos # (Auto) 0.5 x10^3/uL (0.0-0.2) H 09/09/21 05:30 Baso # (Auto) 0.0 X10^3/uL (0.0-0.1) 09/09/21 05:30 Absolute Nucleated RBC 0.0 /100WBC 09/09/21 05:30 PT 19.3 SECONDS (11.8-14.3) 09/08/21 05:38 INR Target Range - 09/08/21 05:38 INR 1.72 (0.8-1.3) H 09/08/21 05:38 APTT 43.4 SECONDS (22.9-36.5) H 09/08/21 05:38 PTT Comment - 09/08/21 05:38 Sodium 141 mmol/L (136-145) 09/09/21 05:30 Corrected Sodium 142 mmol/L (136-145) 09/09/21 05:30 Potassium 3.5 mmol/L (3.5-5.1) 09/09/21 05:30 Chloride 105 mmol/L (98-107) 09/09/21 05:30 Carbon Dioxide 22.9 mmol/L (21-32) 09/09/21 05:30 BUN 32 mg/dL (7-18) H 09/09/21 05:30 Creatinine 2.36 mg/dL (0.70-1.30) H 09/09/21 05:30 Est GFR (MDRD) Af Amer 37 (>60) L 09/09/21 05:30 Est GFR (MDRD) Non-Af 30 (>60) L 09/09/21 05:30 Glucose 122 mg/dL (65-99) H 09/09/21 05:30 Calcium 8.2 mg/dL (8.5-10.1) L 09/09/21 05:30 Corrected Calcium 9.4 mg/dL (8.5-10.1) 09/09/21 05:30 Magnesium 2.3 mg/dL (1.7-2.9) 09/09/21 05:30 Total Bilirubin 4.40 mg/dL (0.2-1.0) H 09/09/21 05:30 AST 26 Units/L (15-37) 09/09/21 05:30 ALT 14 Units/L (12-78) 09/09/21 05:30 Alkaline Phosphatase 125 Units/L (46-116) H 09/09/21 05:30 Ammonia 56 umol/L (11-32) H 09/07/21 13:58 Creatine Kinase 34 Units/L (39-308) L 09/08/21 05:38 CK-MB (CK-2) < 1.0 ng/mL (0-4.0) 09/08/21 05:38 CK/CKMB % Calc 2.9 % (<4) 09/08/21 05:38 Troponin I < 0.02 ng/mL (0-1.5) 09/08/21 05:38 B-Natriuretic Peptide 104 pg/mL (0-79) H 09/07/21 13:58 Total Protein 5.7 g/dL (6.4-8.2) L 09/09/21 05:30 Albumin 2.5 g/dL (3.4-5.0) L 09/09/21 05:30 Globulin 3.2 g/dL (2.5-4.5) 09/09/21 05:30 Albumin/Globulin Ratio 0.8 Ratio (1.1-2.1) L 09/09/21 05:30 Specimen Type Clean catch urine 09/08/21 11:12 Urine Color Dark yellow (YELLOW) 09/08/21 11:12 Urine Appearance Clear (CLEAR) 09/08/21 11:12 Urine pH 6.0 (5.0 - 8.0) 09/08/21 11:12 Ur Specific [place] 1.015 (1.000-1.030) 09/08/21 11:12 Urine Protein 1+ (NEGATIVE) 09/08/21 11:12 Urine Glucose (UA) 2+ (NEGATIVE) 09/08/21 11:12 Urine Ketones Negative (NEGATIVE) 09/08/21 11:12 Urine Occult Blood 5+ (NEGATIVE) 09/08/21 11:12 Urine Nitrite Negative (NEGATIVE) 09/08/21 11:12 Urine Bilirubin Negative (NEGATIVE) 09/08/21 11:12 Urine Urobilinogen 2+ (NORMAL) 09/08/21 11:12 Ur Leukocyte Esterase Negative (NEGATIVE) 09/08/21 11:12 Urine RBC 10-20 /HPF (0-3) A 09/08/21 11:12 Urine WBC 0-2 /HPF (0-5) 09/08/21 11:12 Ur Squamous Epith Cells Rare /HPF (NEGATIVE) 09/08/21 11:12 Urine Bacteria Trace /HPF (NEGATIVE) 09/08/21 11:12 Hyaline Casts Few /LPF (NEGATIVE) 09/08/21 11:12 Urine Mucus Few /HPF (NEGATIVE) 09/08/21 11:12 Ur Culture Indicated? No/not indicated 09/08/21 11:12 SARS-CoV-2 (PCR) Negative (NEGATIVE) 09/07/21 16:48 Influenza Type A (PCR) Negative (NEGATIVE) 09/07/21 16:48 Influenza Type B (PCR) Negative (NEGATIVE) 09/07/21 16:48 RSV (PCR) Negative (NEGATIVE) 09/07/21 16:48 Plan (1) Hepatic encephalopathy: Status: Acute Plan: continue lactulose
--- NOTE | 2021-09-09 12:07 | DR.H&P ---
H&P History & Physical for Day of: H&P Date: 09/08/21 Chief Complaint Chief Complaint: Altered mental status Falls Allergies Allergies Allergy/AdvReac Type Severity Reaction Status Date / Time levofloxacin [From Levaquin] Allergy Verified 07/29/21 07:31 History of Present Illness History of Present Illness: Pt is a 61 year old male past medical history of cirrhosis, HTN, AJ, Hypothyroidism, presenting with that reports he has been falling frequently for the past two days. He gets dizzy while ambulating and appears more confused than normal, with swelling in his legs. On admission his ammonia level was elevated at 56. Labs/imaging: Wbc 10.8, Hgb 9.9, Plt 110, Na 141, K 3.0, Creatinine 1.81, Glucose 95, INR 1.72, Total bilirubin 4.30, Troponin negative, AST 24, ALT 11, ALKP 114, UA: negative. Per , pt has been taking lactulose at home but has not had a bowel movement in many days. He has also had decrease po intake. Will restart home medications and lactulose, Replete electrolytes, including potassium and magnesium. Will order KUB for further evaluation. Continue to closely monitor and follow up labs/imaging in the morning. Past Medical History Past Medical History: Anxiety, Gout, Hypertension, Hypothyroidism and Kidney Stones Past Surgical History Surgical History: Cholecystectomy Family History Family Medical History: Hypertension Social History Does patient currently use any type of tobacco product: No Have you used tobacco products in the last 12 months: No Type of Tobacco Use: None Alcohol Use: None Drug Use: None Medications Home Medications: levofloxacin [From Levaquin] Allergy (Verified 07/29/21 07:31) Labs Result Diagrams: 09/09/21 05:30 09/09/21 05:30 Labs: Laboratory WBC 12.1 X10^3/uL (3.6-10.0) H 09/09/21 05:30 RBC 3.25 X10^6/uL (4.7-6.0) L 09/09/21 05:30 Hgb 10.7 g/dL (13.5-18.0) L 09/09/21 05:30 Hct 31.4 % (42.0-54.0) L 09/09/21 05:30 MCV 96.6 fL (80.0-100.0) 09/09/21 05:30 MCH 33.0 pg (27.0-34.0) 09/09/21 05:30 MCHC 34.1 g/dL (33.0-35.0) 09/09/21 05:30 RDW 17.4 % (11.6-16.5) H 09/09/21 05:30 Plt Count 113 X10^3/uL (150.0-450.0) L 09/09/21 05:30 MPV 7.1 fL (7.4-11.0) L 09/09/21 05:30 Neut % (Auto) 61.6 % (42.0-75.0) 09/09/21 05:30 Lymph % (Auto) 23.4 % (21.0-51.0) 09/09/21 05:30 [place] % (Auto) 10.2 % (0.0-13.0) 09/09/21 05:30 Eos % (Auto) 4.5 % (0.9-2.9) H 09/09/21 05:30 Baso % (Auto) 0.3 % (0.2-1.0) 09/09/21 05:30 Neut # (Auto) 7.4 x10^3/uL (2.2-4.8) H 09/09/21 05:30 Lymph # (Auto) 2.8 X10^3/uL (1.3-2.9) 09/09/21 05:30 [place] # (Auto) 1.2 x10^3/uL (0.3-0.8) H 09/09/21 05:30 Eos # (Auto) 0.5 x10^3/uL (0.0-0.2) H 09/09/21 05:30 Baso # (Auto) 0.0 X10^3/uL (0.0-0.1) 09/09/21 05:30 Absolute Nucleated RBC 0.0 /100WBC 09/09/21 05:30 PT 19.3 SECONDS (11.8-14.3) 09/08/21 05:38 INR Target Range - 09/08/21 05:38 INR 1.72 (0.8-1.3) H 09/08/21 05:38 APTT 43.4 SECONDS (22.9-36.5) H 09/08/21 05:38 PTT Comment - 09/08/21 05:38 Sodium 141 mmol/L (136-145) 09/09/21 05:30 Corrected Sodium 142 mmol/L (136-145) 09/09/21 05:30 Potassium 3.5 mmol/L (3.5-5.1) 09/09/21 05:30 Chloride 105 mmol/L (98-107) 09/09/21 05:30 Carbon Dioxide 22.9 mmol/L (21-32) 09/09/21 05:30 BUN 32 mg/dL (7-18) H 09/09/21 05:30 Creatinine 2.36 mg/dL (0.70-1.30) H 09/09/21 05:30 Est GFR (MDRD) Af Amer 37 (>60) L 09/09/21 05:30 Est GFR (MDRD) Non-Af 30 (>60) L 09/09/21 05:30 Glucose 122 mg/dL (65-99) H 09/09/21 05:30 Calcium 8.2 mg/dL (8.5-10.1) L 09/09/21 05:30 Corrected Calcium 9.4 mg/dL (8.5-10.1) 09/09/21 05:30 Magnesium 2.3 mg/dL (1.7-2.9) 09/09/21 05:30 Total Bilirubin 4.40 mg/dL (0.2-1.0) H 09/09/21 05:30 AST 26 Units/L (15-37) 09/09/21 05:30 ALT 14 Units/L (12-78) 09/09/21 05:30 Alkaline Phosphatase 125 Units/L (46-116) H 09/09/21 05:30 Ammonia 56 umol/L (11-32) H 09/07/21 13:58 Creatine Kinase 34 Units/L (39-308) L 09/08/21 05:38 CK-MB (CK-2) < 1.0 ng/mL (0-4.0) 09/08/21 05:38 CK/CKMB % Calc 2.9 % (<4) 09/08/21 05:38 Troponin I < 0.02 ng/mL (0-1.5) 09/08/21 05:38 B-Natriuretic Peptide 104 pg/mL (0-79) H 09/07/21 13:58 Total Protein 5.7 g/dL (6.4-8.2) L 09/09/21 05:30 Albumin 2.5 g/dL (3.4-5.0) L 09/09/21 05:30 Globulin 3.2 g/dL (2.5-4.5) 09/09/21 05:30 Albumin/Globulin Ratio 0.8 Ratio (1.1-2.1) L 09/09/21 05:30 Specimen Type Clean catch urine 09/08/21 11:12 Urine Color Dark yellow (YELLOW) 09/08/21 11:12 Urine Appearance Clear (CLEAR) 09/08/21 11:12 Urine pH 6.0 (5.0 - 8.0) 09/08/21 11:12 Ur Specific [place] 1.015 (1.000-1.030) 09/08/21 11:12 Urine Protein 1+ (NEGATIVE) 09/08/21 11:12 Urine Glucose (UA) 2+ (NEGATIVE) 09/08/21 11:12 Urine Ketones Negative (NEGATIVE) 09/08/21 11:12 Urine Occult Blood 5+ (NEGATIVE) 09/08/21 11:12 Urine Nitrite Negative (NEGATIVE) 09/08/21 11:12 Urine Bilirubin Negative (NEGATIVE) 09/08/21 11:12 Urine Urobilinogen 2+ (NORMAL) 09/08/21 11:12 Ur Leukocyte Esterase Negative (NEGATIVE) 09/08/21 11:12 Urine RBC 10-20 /HPF (0-3) A 09/08/21 11:12 Urine WBC 0-2 /HPF (0-5) 09/08/21 11:12 Ur Squamous Epith Cells Rare /HPF (NEGATIVE) 09/08/21 11:12 Urine Bacteria Trace /HPF (NEGATIVE) 09/08/21 11:12 Hyaline Casts Few /LPF (NEGATIVE) 09/08/21 11:12 Urine Mucus Few /HPF (NEGATIVE) 09/08/21 11:12 Ur Culture Indicated? No/not indicated 09/08/21 11:12 SARS-CoV-2 (PCR) Negative (NEGATIVE) 09/07/21 16:48 Influenza Type A (PCR) Negative (NEGATIVE) 09/07/21 16:48 Influenza Type B (PCR) Negative (NEGATIVE) 09/07/21 16:48 RSV (PCR) Negative (NEGATIVE) 09/07/21 16:48 Review of Systems Constitutional: Weakness; denies Fever and Chills Eyes: No Symptoms Reported ENT: No Symptoms Reported Respiratory: No Symptoms Reported Cardiovascular: No Symptoms Reported Gastrointestinal: No Symptoms Reported Genitourinary: No Symptoms Reported Musculoskeletal: No Symptoms Reported Skin: No Symptoms Reported Neurological: Confusion Physical Exam Vital Signs: Temperature 98.0 F Pulse Rate [Radial] 88 Pulse Rate 85 Respiratory Rate 20 Blood Pressure [Right Arm] 115/55 Blood Pressure [Left Arm] 142/65 Blood Pressure 144/86 O2 Sat by Pulse Oximetry 93 Oriented: Time and Person Eyes: Normal Ear: Normal Nose: Normal Throat: Normal Respiratory: Clear Throughout Cardiovascular: Normal : Normal Auscultation: Bowel Sounds: Normal Palpation: Normal Tenderness: Normal Skin: Normal Musculoskeletal: Normal Psychiatric: Normal Mood Description: Calm and Appropriate Affect: Normal Speech Pattern: Clear and Appropriate Assessment/Plan (1) Hepatic encephalopathy: Status: Acute Plan: Continue lactulose Review H&P Reviewed: Yes Patient was examined?: Yes
[2021-09-09] MEDS: FLEXERIL TAB 10 MG PO SCH (20:30)
[2021-09-09] MEDS: PEPCID TAB 20 MG PO SCH (20:30)
[2021-09-09] MEDS: FLOMAX PO SCH (20:30)
[2021-09-09] MEDS: CELEXA PO SCH (20:30)
[2021-09-09] MEDS: AMBIEN PO SCH (20:30)
[2021-09-10] MEDS: CHRONULAC PO SCH ×3 (05:15→21:22)
[2021-09-10 05:21] LABS: BASOPHILS # (AUTO) 0.5 X10^3/uL (0.0-0.1); BASOPHILS % (AUTO) 2.9 % (0.2-1.0); EOSINOPHILS # (AUTO) 0.5 x10^3/uL (0.0-0.2); EOSINOPHILS % (AUTO) 2.6 % (0.9-2.9); HEMATOCRIT 30.4 % (42.0-54.0); HEMOGLOBIN 10.4 g/dL (13.5-18.0); LYMPHOCYTES # (AUTO) 2.4 X10^3/uL (1.3-2.9); LYMPHOCYTES % (AUTO) 13.3 % (21.0-51.0); MEAN CORPUSCULAR HEMOGLOBIN 33.1 pg (27.0-34.0); MEAN CORPUSCULAR HGB CONC 34.2 g/dL (33.0-35.0); MEAN CORPUSCULAR VOLUME 96.6 fL (80.0-100.0); MEAN PLATELET VOLUME 6.9 fL (7.4-11.0); MONOCYTES # (AUTO) 1.4 x10^3/uL (0.3-0.8); MONOCYTES % (AUTO) 7.8 % (0.0-13.0); NEUTROPHILS % (AUTO) 73.4 % (42.0-75.0); PLATELET COUNT 105 X10^3/uL (150.0-450.0); RED BLOOD COUNT 3.14 X10^6/uL (4.7-6.0); RED CELL DISTRIBUTION WIDTH 17.6 % (11.6-16.5); WHITE BLOOD COUNT 17.7 X10^3/uL (3.6-10.0)
[2021-09-10 05:45] LABS: ALBUMIN 2.3 g/dL (3.4-5.0); CALCIUM 8.3 mg/dL (8.5-10.1); CARBON DIOXIDE 23.5 mmol/L (21-32); COR CA(FOR HYPOALB) 9.7 mg/dL (8.5-10.1); CREATININE 2.94 mg/dL (0.70-1.30); TOTAL PROTEIN 5.3 g/dL (6.4-8.2)
[2021-09-10 05:49] LABS: PLATELET MORPHOLOGY COMMENT NORMAL (NORMAL)
[2021-09-10] MEDS: HYZAAR 50/12.5 MG PO SCH (08:43)
[2021-09-10] MEDS: MAG-OX TAB PO SCH (08:43)
[2021-09-10] MEDS: SYNTHROID 150 mcg TAB PO SCH (08:43)
[2021-09-10] MEDS: LASIX PO SCH (08:43)
[2021-09-10] MEDS: K-DUR TAB 20 MEQ PO PRN (09:51)
[2021-09-10] MEDS ORDERED: NS 1,000 ML IV 1,000 ML with SODIUM BICARBONATE 8.4% INJ ADULT 50 ML IV ONE ×4 (09:53→09:54)
[2021-09-10] MEDS: ROCEPHIN VIAL 1 GRAM 1 G in NS 100 ML IV + SPIKE MINIBAG* 100 ML IV SCH ×2 (11:00→12:38)
[2021-09-10] MEDS: NS 1,000 ML IV 1,000 ML IV SCH ×2 (12:38→23:05)
[2021-09-10] MEDS ORDERED: NS 1,000 ML IV 1,000 ML with SODIUM BICARBONATE 8.4% INJ ADULT 50 ML IV NR ×2 (15:00)
--- NOTE | 2021-09-10 17:20 | PCM.PROG ---
Progress Note - Progress Note for Day of Date of Exam: 09/10/21 - Subjective Subjective: WAS ADMITTED ON 09/08 FOR TREATMENT OF HEPATIC ENCEPHALOPATHY, DEDHYDRATION, ACUTE RENAL FAILURE, AND FREQUENT FALLS. PATIENT HAS A HISTORY OF CIRRHOSIS. HE WAS RECENTLY ADMITTED FOR CIRRHOSIS WITH ASCITES AND HEPATIC ENCEPHALOPATY. TODAY, HE IS ALERT AND ORIENTED, LYING IN BED ON MORNING ROUNDS. HE REPORTS WEAKNESS AND DECREASED APPETITE TODAY. HE HAS 1+ EDEMA TO LOWER EXTREMITIES. ON EXAMINATION, HEART IS REGULAR IN RATE AND RHYHTM. BILATERAL LUNGS NOTED WITH DIMINISHED LUNG SOUNDS THROUGHOUT. ABDOMEN IS DISTENDED, BUT NON-TENDER WITH NORMAL BOWEL SOUNDS NOTED IN ALL QUADRANTS. GENERALIZED SWELLING NOTED TO UPPER AND LOWER EXTREMITIES. HIS VITALS THIS MORNING ARE: 98.0-100-22-95%-126/57. LABS WERE OBTAINED. ABNORMAL LAB VALUES INCLUDE THE FOLLOWING: WBC 17.7, RBC 3.14, HGB 10.4, HCT 30.4, PLT COUNT 105, POTASSIUM 3.4, BUN 35, CREATININE 2.94, GLUCOSE 125, CALCIUM 8.3, TOTAL BILI 4.50, ALT 11, ALK PHOS 120, AMMONIA 40, TOTAL PROTEIN 5.3, ALBUMIN 2.3. HE IS CURRENTLY RECEIVING NORMAL SALINE AT 75 ML/HR, LASIX BID, THE POTASSIUM AND MAGNESIUM PROTOCOLS, ROCEPHIN 1G IV DAILY, LACTULOSE 30ML PO TID, AND HIS HOME MEDICATIONS WERE RESUMED. TODAY, WE WILL HOLD LASIX. WE WILL ADMINISTER )TWO) ONE LITER NORMAL SALINE BOLUSES WITH ONE AM BICARB IN EACH LITER. WE WILL C ONSULT FOR PLACEMENT AND CONSULT , MERCHANDISE PICKUP/RECEIVING ASSOCIATE. OTHERWISE, WE PLAN TO FOLLOW UP WITH AM LABS AND CONTINUE TO MONITOR. TIME SPENT ON CLINICAL ASSESSMENT, REVIEWING LABS AND IMAGING, DECISION MAKING, AND DOCUMENTATION GREATER THAN 45 MINUTES. - Past Medical Family Social History Past Med/Fam/Surg Hx: No changes since H&P Allergies: Allergies levofloxacin [From Levaquin] Allergy (Verified 07/29/21 07:31) - Review of Systems ROS: No change since H&P - Vital Signs and I&O's Vital Signs: Temperature 97.7 F Pulse Rate [Radial] 92 Pulse Rate 85 Respiratory Rate 19 Blood Pressure [Right Arm] 120/54 Blood Pressure [Left Arm] 126/57 Blood Pressure 144/86 O2 Sat by Pulse Oximetry 93 Intake and Output: Intake & Output 09/08/21 09/09/21 09/10/21 09/11/21 11:59 11:59 11:59 11:59 Intake Total 440 / 440 1195 / 1195 435 / 435 2149 Balance 440 / 440 1195 / 1195 435 / 435 2149 - Physical Exam Oriented: Time, Person Eyes: Normal Ear: Normal Nose: Normal Throat: Normal Respiratory: Normal Cardiovascular: Normal, Edema : Normal Auscultation: Bowel Sounds: Normal Palpation: Normal Tenderness: Normal Skin: Normal Musculoskeletal: Normal Psychiatric: Normal Mood Description: Calm, Appropriate Affect: Normal Speech Pattern: Clear, Appropriate - Laboratory and Diagnostics Result Diagrams: 09/10/21 05:05 09/10/21 05:05 Labs: Laboratory WBC 17.7 X10^3/uL (3.6-10.0) H 09/10/21 05:05 RBC 3.14 X10^6/uL (4.7-6.0) L 09/10/21 05:05 Hgb 10.4 g/dL (13.5-18.0) L 09/10/21 05:05 Hct 30.4 % (42.0-54.0) L 09/10/21 05:05 MCV 96.6 fL (80.0-100.0) 09/10/21 05:05 MCH 33.1 pg (27.0-34.0) 09/10/21 05:05 MCHC 34.2 g/dL (33.0-35.0) 09/10/21 05:05 RDW 17.6 % (11.6-16.5) H 09/10/21 05:05 Plt Count 105 X10^3/uL (150.0-450.0) L 09/10/21 05:05 Plt Count Comment Decreased (ADEQUATE) 09/10/21 05:05 MPV 6.9 fL (7.4-11.0) L 09/10/21 05:05 Neut % (Auto) 73.4 % (42.0-75.0) 09/10/21 05:05 Lymph % (Auto) 13.3 % (21.0-51.0) L 09/10/21 05:05 [place] % (Auto) 7.8 % (0.0-13.0) 09/10/21 05:05 Eos % (Auto) 2.6 % (0.9-2.9) 09/10/21 05:05 Baso % (Auto) 2.9 % (0.2-1.0) H 09/10/21 05:05 Neut # (Auto) 13.0 x10^3/uL (2.2-4.8) H 09/10/21 05:05 Lymph # (Auto) 2.4 X10^3/uL (1.3-2.9) 09/10/21 05:05 [place] # (Auto) 1.4 x10^3/uL (0.3-0.8) H 09/10/21 05:05 Eos # (Auto) 0.5 x10^3/uL (0.0-0.2) H 09/10/21 05:05 Baso # (Auto) 0.5 X10^3/uL (0.0-0.1) H 09/10/21 05:05 Absolute Nucleated RBC 0.0 /100WBC 09/10/21 05:05 Total Counted 100 09/10/21 05:05 Neutrophils % (Manual) 71 % (39-76) 09/10/21 05:05 Lymphocytes % (Manual) 21 % (13-43) 09/10/21 05:05 Monocytes % (Manual) 2 % (4-9) L 09/10/21 05:05 Eosinophils % (Manual) 6 % (0-6) 09/10/21 05:05 Plt Morphology Comment Normal (NORMAL) 09/10/21 05:05 RBC Morphology Normal (NORMAL) 09/10/21 05:05 PT 19.3 SECONDS (11.8-14.3) 09/08/21 05:38 INR Target Range - 09/08/21 05:38 INR 1.72 (0.8-1.3) H 09/08/21 05:38 APTT 43.4 SECONDS (22.9-36.5) H 09/08/21 05:38 PTT Comment - 09/08/21 05:38 Sodium 141 mmol/L (136-145) 09/10/21 05:05 Corrected Sodium 142 mmol/L (136-145) 09/10/21 05:05 Potassium 3.4 mmol/L (3.5-5.1) L 09/10/21 05:05 Chloride 106 mmol/L (98-107) 09/10/21 05:05 Carbon Dioxide 23.5 mmol/L (21-32) 09/10/21 05:05 BUN 35 mg/dL (7-18) H 09/10/21 05:05 Creatinine 2.94 mg/dL (0.70-1.30) H 09/10/21 05:05 Est GFR (MDRD) Af Amer 28 (>60) L 09/10/21 05:05 Est GFR (MDRD) Non-Af 23 (>60) L 09/10/21 05:05 Glucose 125 mg/dL (65-99) H 09/10/21 05:05 Calcium 8.3 mg/dL (8.5-10.1) L 09/10/21 05:05 Corrected Calcium 9.7 mg/dL (8.5-10.1) 09/10/21 05:05 Magnesium 2.3 mg/dL (1.7-2.9) 09/10/21 05:05 Total Bilirubin 4.50 mg/dL (0.2-1.0) H 09/10/21 05:05 AST 24 Units/L (15-37) 09/10/21 05:05 ALT 11 Units/L (12-78) L 09/10/21 05:05 Alkaline Phosphatase 120 Units/L (46-116) H 09/10/21 05:05 Ammonia 40 umol/L (11-32) H 09/10/21 05:05 Creatine Kinase 34 Units/L (39-308) L 09/08/21 05:38 CK-MB (CK-2) < 1.0 ng/mL (0-4.0) 09/08/21 05:38 CK/CKMB % Calc 2.9 % (<4) 09/08/21 05:38 Troponin I < 0.02 ng/mL (0-1.5) 09/08/21 05:38 B-Natriuretic Peptide 104 pg/mL (0-79) H 09/07/21 13:58 Total Protein 5.3 g/dL (6.4-8.2) L 09/10/21 05:05 Albumin 2.3 g/dL (3.4-5.0) L 09/10/21 05:05 Globulin 3.0 g/dL (2.5-4.5) 09/10/21 05:05 Albumin/Globulin Ratio 0.8 Ratio (1.1-2.1) L 09/10/21 05:05 Specimen Type Clean catch urine 09/08/21 11:12 Urine Color Dark yellow (YELLOW) 09/08/21 11:12 Urine Appearance Clear (CLEAR) 09/08/21 11:12 Urine pH 6.0 (5.0 - 8.0) 09/08/21 11:12 Ur Specific [place] 1.015 (1.000-1.030) 09/08/21 11:12 Urine Protein 1+ (NEGATIVE) 09/08/21 11:12 Urine Glucose (UA) 2+ (NEGATIVE) 09/08/21 11:12 Urine Ketones Negative (NEGATIVE) 09/08/21 11:12 Urine Occult Blood 5+ (NEGATIVE) 09/08/21 11:12 Urine Nitrite Negative (NEGATIVE) 09/08/21 11:12 Urine Bilirubin Negative (NEGATIVE) 09/08/21 11:12 Urine Urobilinogen 2+ (NORMAL) 09/08/21 11:12 Ur Leukocyte Esterase Negative (NEGATIVE) 09/08/21 11:12 Urine RBC 10-20 /HPF (0-3) A 09/08/21 11:12 Urine WBC 0-2 /HPF (0-5) 09/08/21 11:12 Ur Squamous Epith Cells Rare /HPF (NEGATIVE) 09/08/21 11:12 Urine Bacteria Trace /HPF (NEGATIVE) 09/08/21 11:12 Hyaline Casts Few /LPF (NEGATIVE) 09/08/21 11:12 Urine Mucus Few /HPF (NEGATIVE) 09/08/21 11:12 Ur Culture Indicated? No/not indicated 09/08/21 11:12 SARS-CoV-2 (PCR) Negative (NEGATIVE) 09/07/21 16:48 Influenza Type A (PCR) Negative (NEGATIVE) 09/07/21 16:48 Influenza Type B (PCR) Negative (NEGATIVE) 09/07/21 16:48 RSV (PCR) Negative (NEGATIVE) 09/07/21 16:48 - Plan (1) Encephalopathy, hepatic Status: Acute Plan: NORMAL SALINE BOLUS X 2, NORMAL SALINE AT 150 ML/HR, LASIX BID, THE POTASSIUM AND MAGNESIUM PROTOCOLS, ROCEPHIN 1G IV DAILY, LACTULOSE 30ML PO TID, AND HIS HOME MEDICATIONS WERE RESUMED. (2) Acute renal failure Status: Acute Qualifiers: Acute renal failure type: unspecified (3) Cirrhosis of liver with ascites Status: Acute Qualifiers:
[2021-09-10] MEDS: CELEXA PO SCH (21:22)
[2021-09-10] MEDS: FLOMAX PO SCH (21:22)
[2021-09-10] MEDS: FLEXERIL TAB 10 MG PO SCH (21:22)
[2021-09-10] MEDS: AMBIEN PO SCH (21:22)
[2021-09-10] MEDS: PEPCID TAB 20 MG PO SCH (21:22)
[2021-09-11] MEDS: ROXICODONE TAB 5 MG PO PRN (02:51)
[2021-09-11] MEDS ORDERED: VALIUM INJ IVP PRN (03:00)
[2021-09-11] MEDS: CHRONULAC PO SCH ×3 (05:06→21:09)
[2021-09-11 06:12] LABS: BASOPHILS # (AUTO) 0.1 X10^3/uL (0.0-0.1); BASOPHILS % (AUTO) 0.4 % (0.2-1.0); EOSINOPHILS # (AUTO) 0.6 x10^3/uL (0.0-0.2); EOSINOPHILS % (AUTO) 3.6 % (0.9-2.9); HEMATOCRIT 29.1 % (42.0-54.0); HEMOGLOBIN 9.9 g/dL (13.5-18.0); LYMPHOCYTES # (AUTO) 3.9 X10^3/uL (1.3-2.9); LYMPHOCYTES % (AUTO) 23.6 % (21.0-51.0); MEAN CORPUSCULAR HEMOGLOBIN 33.2 pg (27.0-34.0); MEAN CORPUSCULAR HGB CONC 34.1 g/dL (33.0-35.0); MEAN CORPUSCULAR VOLUME 97.4 fL (80.0-100.0); MONOCYTES # (AUTO) 1.4 x10^3/uL (0.3-0.8); MONOCYTES % (AUTO) 8.5 % (0.0-13.0); NEUTROPHILS # (AUTO) 10.5 x10^3/uL (2.2-4.8); NEUTROPHILS % (AUTO) 63.9 % (42.0-75.0); PLATELET COUNT 111 X10^3/uL (150.0-450.0); RED BLOOD COUNT 2.99 X10^6/uL (4.7-6.0); RED CELL DISTRIBUTION WIDTH 17.9 % (11.6-16.5); WHITE BLOOD COUNT 16.4 X10^3/uL (3.6-10.0)
[2021-09-11 06:26] LABS: AMMONIA 39 umol/L (11-32)
[2021-09-11 06:36] LABS: ALANINE AMINOTRANSFERASE 11 Units/L (12-78); ALBUMIN 2.3 g/dL (3.4-5.0); ALKALINE PHOSPHATASE 129 Units/L (46-116); ASPARTATE AMINO TRANSFERASE 24 Units/L (15-37); BLOOD UREA NITROGEN 37 mg/dL (7-18); CALCIUM 8.2 mg/dL (8.5-10.1); CARBON DIOXIDE 23.9 mmol/L (21-32); CHLORIDE 107 mmol/L (98-107); COR CA(FOR HYPOALB) 9.6 mg/dL (8.5-10.1); CREATININE 3.22 mg/dL (0.70-1.30); SODIUM 142 mmol/L (136-145); TOTAL PROTEIN 5.3 g/dL (6.4-8.2); eGFR NON BLACK RACES 21 (>60)
[2021-09-11] MEDS ORDERED: NS 1,000 ML IV 1,000 ML ONE (08:40)
[2021-09-11] MEDS ORDERED: ANCEF VIAL 1 GRAM ONE (08:50)
[2021-09-11] MEDS ORDERED: NS 100 ML IV 100 ML ONE (08:52)
[2021-09-11] MEDS ORDERED: VITAMIN D3 125 mcg (5,000 UNITS) PO SCH (09:00)
[2021-09-11] MEDS: HYZAAR 50/12.5 MG PO SCH (09:00)
[2021-09-11] MEDS: SYNTHROID 150 mcg TAB PO SCH (09:00)
[2021-09-11] MEDS: MAG-OX TAB PO SCH (09:00)
[2021-09-11] MEDS ORDERED: POLYMYXIN B SULFATE ONE (09:19)
[2021-09-11] MEDS ORDERED: XYLOCAINE 1 % (PLAIN) ONE ×2 (09:19→10:33)
[2021-09-11] MEDS ORDERED: FENTANYL VIAL INJ 100 mcg ONE (09:37)
[2021-09-11] MEDS ORDERED: PEPCID 20 MG IV PREMIX* 50 ML IV ONE (09:37)
[2021-09-11] MEDS ORDERED: XYLOCAINE 2 % (PLAIN) ONE (09:49)
[2021-09-11] MEDS ORDERED: DIPRIVAN VIAL ONE (09:49)
[2021-09-11] MEDS ORDERED: KETALAR ONE (09:49)
[2021-09-11] MEDS ORDERED: ULTANE GAS IN ONE (09:49)
[2021-09-11] MEDS ORDERED: VERSED ONE (09:49)
[2021-09-11] MEDS ORDERED: BENADRYL INJ 50 MG VIAL IVP PRN (11:57)
[2021-09-11] MEDS ORDERED: BARHEMSYS INJ IVP PRN (11:57)
--- NOTE | 2021-09-11 12:02 | PCM.PROG ---
Progress Note - Progress Note for Day of Date of Exam: 09/11/21 - Subjective Subjective: WAS ADMITTED ON 09/08 FOR TREATMENT OF HEPATIC ENCEPHALOPATHY, DEDHYDRATION, ACUTE RENAL FAILURE, AND FREQUENT FALLS. PATIENT HAS A HISTORY OF CIRRHOSIS. HE WAS RECENTLY ADMITTED FOR CIRRHOSIS WITH ASCITES AND HEPATIC ENCEPHALOPATY. TODAY, HE IS ALERT AND ORIENTED, LYING IN BED ON MORNING ROUNDS. HE IS SCHEDULED FOR PLACEMENT OF A PORT A CATH THIS MORNING. STAFF REPORTS THAT HE WAS CONFUSED AND AGITATED THROUGHOUT THE NIGHT. HE ATTEMPTED TO GET OUT OF BED UNASSISTED SEVERAL TIMES LAST NIGHT. ON EXAMINATION, HEART IS REGULAR IN RATE AND RHYHTM. BILATERAL LUNGS NOTED WITH DIMINISHED LUNG SOUNDS THROUGHOUT. ABDOMEN IS DISTENDED, BUT NON-TENDER WITH NORMAL BOWEL SOUNDS NOTED IN ALL QUADRANTS. HIS VITALS THIS MORNING WERE: 97.9-94-22-96%-119/53. LABS WERE OBTAINED. ABNORMAL LAB VALUES INCLUDE THE FOLLOWING: WBC 16.4, RBC 2.99, HGB 9.9, HCT 29.1, PLT COUNT 111, POTASSIUM 3.4, BUN 37, CREATININE 3.22, GLUCOSE 108, CALCIUM 8.2, TOTAL BILI 4.00, ALT 11, ALK PHOS 129, AMMONIA 39, TOTAL PROTEIN 5.3, ALBUMIN 2.3. HE IS CURRENTLY RECEIVING NORMAL SALINE AT 150 ML/HR, THE POTASSIUM AND MAGNESIUM PROTOCOLS, ROCEPHIN 1G IV DAILY, VALIUM 5MG IV Q8H PRN, LACTULOSE 30ML PO TID, AND HIS HOME MEDICATIONS WERE RESUMED. 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 OTHERWISE, WE WILL CONTINUE WITH CURRENT PLAN OF CARE TODAY. WE PLAN TO FOLLOW UP WITH AM LABS AND CONTINUE TO MONITOR. TIME SPENT ON CLINICAL ASSESSMENT, REVIEWING LABS AND IMAGING, DECISION MAKING, AND DOCUMENTATION GREATER THAN 45 MINUTES. - Past Medical Family Social History Past Med/Fam/Surg Hx: No changes since H&P Allergies: Allergies levofloxacin [From Levaquin] Allergy (Verified 07/29/21 07:31) - Review of Systems ROS: No change since H&P - Vital Signs and I&O's Vital Signs: Temperature 97.9 F Pulse Rate [Radial] 94 Pulse Rate 85 Respiratory Rate 22 Blood Pressure [Right Arm] 119/53 Blood Pressure [Left Arm] 120/68 Blood Pressure 144/86 O2 Sat by Pulse Oximetry 96 Intake and Output: Intake & Output 09/09/21 09/10/21 09/11/21 09/12/21 11:59 11:59 11:59 11:59 Intake Total 1195 / 1195 435 / 435 5025 / 5025 Output Total 505 / 505 Balance 1195 / 1195 435 / 435 4520 / 4520 - Physical Exam Oriented: Not Oriented Eyes: Normal Ear: Normal Nose: Normal Throat: Normal Respiratory: Normal Cardiovascular: Normal, Edema : Normal Auscultation: Bowel Sounds: Normal Palpation: Normal Tenderness: Normal Skin: Normal Musculoskeletal: Normal Psychiatric: Agitation Mood Description: Anxious, Appropriate Affect: Normal Speech Pattern: Clear - Laboratory and Diagnostics Result Diagrams: 09/11/21 05:40 09/11/21 05:40 Labs: Laboratory WBC 16.4 X10^3/uL (3.6-10.0) H 09/11/21 05:40 RBC 2.99 X10^6/uL (4.7-6.0) L 09/11/21 05:40 Hgb 9.9 g/dL (13.5-18.0) L 09/11/21 05:40 Hct 29.1 % (42.0-54.0) L 09/11/21 05:40 MCV 97.4 fL (80.0-100.0) 09/11/21 05:40 MCH 33.2 pg (27.0-34.0) 09/11/21 05:40 MCHC 34.1 g/dL (33.0-35.0) 09/11/21 05:40 RDW 17.9 % (11.6-16.5) H 09/11/21 05:40 Plt Count 111 X10^3/uL (150.0-450.0) L 09/11/21 05:40 Plt Count Comment Decreased (ADEQUATE) 09/10/21 05:05 MPV 7.0 fL (7.4-11.0) L 09/11/21 05:40 Neut % (Auto) 63.9 % (42.0-75.0) 09/11/21 05:40 Lymph % (Auto) 23.6 % (21.0-51.0) 09/11/21 05:40 [place] % (Auto) 8.5 % (0.0-13.0) 09/11/21 05:40 Eos % (Auto) 3.6 % (0.9-2.9) H 09/11/21 05:40 Baso % (Auto) 0.4 % (0.2-1.0) 09/11/21 05:40 Neut # (Auto) 10.5 x10^3/uL (2.2-4.8) H 09/11/21 05:40 Lymph # (Auto) 3.9 X10^3/uL (1.3-2.9) H 09/11/21 05:40 [place] # (Auto) 1.4 x10^3/uL (0.3-0.8) H 09/11/21 05:40 Eos # (Auto) 0.6 x10^3/uL (0.0-0.2) H 09/11/21 05:40 Baso # (Auto) 0.1 X10^3/uL (0.0-0.1) 09/11/21 05:40 Absolute Nucleated RBC 0.0 /100WBC 09/11/21 05:40 Total Counted 100 09/10/21 05:05 Neutrophils % (Manual) 71 % (39-76) 09/10/21 05:05 Lymphocytes % (Manual) 21 % (13-43) 09/10/21 05:05 Monocytes % (Manual) 2 % (4-9) L 09/10/21 05:05 Eosinophils % (Manual) 6 % (0-6) 09/10/21 05:05 Plt Morphology Comment Normal (NORMAL) 09/10/21 05:05 RBC Morphology Normal (NORMAL) 09/10/21 05:05 PT 19.3 SECONDS (11.8-14.3) 09/08/21 05:38 INR Target Range - 09/08/21 05:38 INR 1.72 (0.8-1.3) H 09/08/21 05:38 APTT 43.4 SECONDS (22.9-36.5) H 09/08/21 05:38 PTT Comment - 09/08/21 05:38 Sodium 142 mmol/L (136-145) 09/11/21 05:40 Corrected Sodium TNP 09/11/21 05:40 Potassium 3.4 mmol/L (3.5-5.1) L 09/11/21 05:40 Chloride 107 mmol/L (98-107) 09/11/21 05:40 Carbon Dioxide 23.9 mmol/L (21-32) 09/11/21 05:40 BUN 37 mg/dL (7-18) H 09/11/21 05:40 Creatinine 3.22 mg/dL (0.70-1.30) H 09/11/21 05:40 Est GFR (MDRD) Af Amer 26 (>60) L 09/11/21 05:40 Est GFR (MDRD) Non-Af 21 (>60) L 09/11/21 05:40 Glucose 108 mg/dL (65-99) H 09/11/21 05:40 Calcium 8.2 mg/dL (8.5-10.1) L 09/11/21 05:40 Corrected Calcium 9.6 mg/dL (8.5-10.1) 09/11/21 05:40 Magnesium 2.3 mg/dL (1.7-2.9) 09/10/21 05:05 Total Bilirubin 4.00 mg/dL (0.2-1.0) H 09/11/21 05:40 AST 24 Units/L (15-37) 09/11/21 05:40 ALT 11 Units/L (12-78) L 09/11/21 05:40 Alkaline Phosphatase 129 Units/L (46-116) H 09/11/21 05:40 Ammonia 39 umol/L (11-32) H 09/11/21 05:40 Creatine Kinase 34 Units/L (39-308) L 09/08/21 05:38 CK-MB (CK-2) < 1.0 ng/mL (0-4.0) 09/08/21 05:38 CK/CKMB % Calc 2.9 % (<4) 09/08/21 05:38 Troponin I < 0.02 ng/mL (0-1.5) 09/08/21 05:38 B-Natriuretic Peptide 104 pg/mL (0-79) H 09/07/21 13:58 Total Protein 5.3 g/dL (6.4-8.2) L 09/11/21 05:40 Albumin 2.3 g/dL (3.4-5.0) L 09/11/21 05:40 Globulin 3.0 g/dL (2.5-4.5) 09/11/21 05:40 Albumin/Globulin Ratio 0.8 Ratio (1.1-2.1) L 09/11/21 05:40 Specimen Type Clean catch urine 09/08/21 11:12 Urine Color Dark yellow (YELLOW) 09/08/21 11:12 Urine Appearance Clear (CLEAR) 09/08/21 11:12 Urine pH 6.0 (5.0 - 8.0) 09/08/21 11:12 Ur Specific [place] 1.015 (1.000-1.030) 09/08/21 11:12 Urine Protein 1+ (NEGATIVE) 09/08/21 11:12 Urine Glucose (UA) 2+ (NEGATIVE) 09/08/21 11:12 Urine Ketones Negative (NEGATIVE) 09/08/21 11:12 Urine Occult Blood 5+ (NEGATIVE) 09/08/21 11:12 Urine Nitrite Negative (NEGATIVE) 09/08/21 11:12 Urine Bilirubin Negative (NEGATIVE) 09/08/21 11:12 Urine Urobilinogen 2+ (NORMAL) 09/08/21 11:12 Ur Leukocyte Esterase Negative (NEGATIVE) 09/08/21 11:12 Urine RBC 10-20 /HPF (0-3) A 09/08/21 11:12 Urine WBC 0-2 /HPF (0-5) 09/08/21 11:12 Ur Squamous Epith Cells Rare /HPF (NEGATIVE) 09/08/21 11:12 Urine Bacteria Trace /HPF (NEGATIVE) 09/08/21 11:12 Hyaline Casts Few /LPF (NEGATIVE) 09/08/21 11:12 Urine Mucus Few /HPF (NEGATIVE) 09/08/21 11:12 Ur Culture Indicated? No/not indicated 09/08/21 11:12 SARS-CoV-2 (PCR) Negative (NEGATIVE) 09/07/21 16:48 Influenza Type A (PCR) Negative (NEGATIVE) 09/07/21 16:48 Influenza Type B (PCR) Negative (NEGATIVE) 09/07/21 16:48 RSV (PCR) Negative (NEGATIVE) 09/07/21 16:48 - Plan (1) Encephalopathy, hepatic Status: Acute Plan: NORMAL SALINE AT 150 ML/HR, THE POTASSIUM AND MAGNESIUM PROTOCOLS, ROCEPHIN 1G IV DAILY, LACTULOSE 30ML PO TID, VALIUM 5MG IV TID PRN, AND HIS HOME MEDICATIONS WERE RESUMED. (2) Acute renal failure Status: Acute Qualifiers: Acute renal failure type: unspecified (3) Cirrhosis of liver with ascites Status: Acute Qualifiers: Hepatic cirrhosis type: unspecified hepatic cirrhosis
--- NOTE | 2021-09-11 12:34 | RAD ---
HISTORYPOST OP PORT PLACEMENT LITHOTRIPSY, CHOLECYCTECTOMY HX: ANXIETY, GOUT, HTN, KIDNEY STONES, HYPERTHYROIDISM, HYPOTHYROIDISMSTUDYCHEST, 1 VIEWCOMPARISONPortable chest September 07, 2021FINDINGSThe trachea is midline. The cardiac silhouette is mildly enlarged but stable.. The lungs are clear without focal infiltrate or effusion. The bony thorax is unremarkable. A left subclavian port has been placed since the last exam of September 07, 2021. The Port-A-Cath is in good position without pneumothorax.IMPRESSIONNo acute cardiopulmonary [id number]-S-Coui is been placed entering on the left tip in the superior vena cava without pneumothorax since the last exam of September 07, 2021.Electronically signed by: ILAN WOLFE (Sep 11, 2021 12:32:37)
[2021-09-11] MEDS: ROCEPHIN VIAL 1 GRAM 1 G in NS 100 ML IV + SPIKE MINIBAG* 100 ML IV SCH (12:47)
[2021-09-11] MEDS: ATIVAN INJ 2 MG VIAL IVP PRN ×2 (12:56→22:07)
[2021-09-11] MEDS ORDERED: HALDOL INJ IM ONE ×2 (13:49→15:16)
[2021-09-11] MEDS ORDERED: HALDOL INJ ONE ×2 (13:50→13:53)
[2021-09-11] MEDS: NS 1,000 ML IV 1,000 ML IV SCH (15:47)
[2021-09-11] MEDS: CELEXA PO SCH (21:08)
[2021-09-11] MEDS: AMBIEN PO SCH (21:08)
[2021-09-11] MEDS: FLEXERIL TAB 10 MG PO SCH (21:08)
[2021-09-11] MEDS: FLOMAX PO SCH (21:08)
[2021-09-11] MEDS: PEPCID TAB 20 MG PO SCH (21:09)
[2021-09-12] MEDS: NS 1,000 ML IV 1,000 ML IV SCH ×4 (02:16→21:23)
[2021-09-12] MEDS: CHRONULAC PO SCH ×3 (05:40→21:22)
[2021-09-12] MEDS: ATIVAN INJ 2 MG VIAL IVP PRN (06:13)
[2021-09-12 07:02] LABS: BASOPHILS # (AUTO) 0.1 X10^3/uL (0.0-0.1); BASOPHILS % (AUTO) 0.4 % (0.2-1.0); EOSINOPHILS # (AUTO) 0.7 x10^3/uL (0.0-0.2); EOSINOPHILS % (AUTO) 5.1 % (0.9-2.9); HEMATOCRIT 30.3 % (42.0-54.0); HEMOGLOBIN 10.4 g/dL (13.5-18.0); LYMPHOCYTES # (AUTO) 3.2 X10^3/uL (1.3-2.9); LYMPHOCYTES % (AUTO) 23.5 % (21.0-51.0); MEAN CORPUSCULAR HEMOGLOBIN 33.4 pg (27.0-34.0); MEAN CORPUSCULAR HGB CONC 34.2 g/dL (33.0-35.0); MEAN CORPUSCULAR VOLUME 97.8 fL (80.0-100.0); MEAN PLATELET VOLUME 6.5 fL (7.4-11.0); MONOCYTES # (AUTO) 1.3 x10^3/uL (0.3-0.8); MONOCYTES % (AUTO) 9.9 % (0.0-13.0); NEUTROPHILS # (AUTO) 8.2 x10^3/uL (2.2-4.8); NEUTROPHILS % (AUTO) 61.1 % (42.0-75.0); PLATELET COUNT 119 X10^3/uL (150.0-450.0); RED CELL DISTRIBUTION WIDTH 17.7 % (11.6-16.5); WHITE BLOOD COUNT 13.5 X10^3/uL (3.6-10.0)
[2021-09-12 07:14] LABS: AMMONIA 54 umol/L (11-32)
[2021-09-12 07:17] LABS: ALANINE AMINOTRANSFERASE 11 Units/L (12-78); ALBUMIN 2.4 g/dL (3.4-5.0); ALKALINE PHOSPHATASE 131 Units/L (46-116); ASPARTATE AMINO TRANSFERASE 27 Units/L (15-37); BLOOD UREA NITROGEN 35 mg/dL (7-18); CALCIUM 8.3 mg/dL (8.5-10.1); CARBON DIOXIDE 23.3 mmol/L (21-32); CHLORIDE 109 mmol/L (98-107); COR CA(FOR HYPOALB) 9.6 mg/dL (8.5-10.1); CREATININE 2.57 mg/dL (0.70-1.30); SODIUM 144 mmol/L (136-145); TOTAL PROTEIN 5.6 g/dL (6.4-8.2); eGFR NON BLACK RACES 27 (>60)
[2021-09-12] MEDS: ROCEPHIN VIAL 1 GRAM 1 G in NS 100 ML IV + SPIKE MINIBAG* 100 ML IV SCH (08:37)
[2021-09-12] MEDS: MAG-OX TAB PO SCH (08:42)
[2021-09-12] MEDS: HYZAAR 50/12.5 MG PO SCH (08:42)
[2021-09-12] MEDS: SYNTHROID 150 mcg TAB PO SCH (08:42)
[2021-09-12] MEDS: HALDOL INJ IM PRN ×2 (09:58→14:02)
--- NOTE | 2021-09-12 10:24 | PCM.PROG ---
Progress Note - Progress Note for Day of Date of Exam: 09/12/21 - Subjective Subjective: WAS ADMITTED ON 09/08 FOR TREATMENT OF HEPATIC ENCEPHALOPATHY, DEDHYDRATION, ACUTE RENAL FAILURE, AND FREQUENT FALLS. PATIENT HAS A HISTORY OF CIRRHOSIS. HE WAS RECENTLY HOSPITALIZED FOR SAME DIAGNOSIS. HE HAD A PORT A CATH INSERTED YESTERDAY. TODAY, HE IS ALERT, LYING IN BED ON M ORNING ROUNDS. STAFF REPORTS THAT HE HAS BEEN CONFUSED AND AGITATED ALL THROUGHOUT THE NIGHT AND THIS MORNING. HE HAS PULLED AT MEDICAL EQUIPMENT, IV LINES, AND ATTEMPTED TO GET OUT OF BED. IV MEDICATION WAS GIVEN WITH ONLY MINIMAL RESULTS. PATIENT DID REQUIRE USE OF RESTRAINTS THROUGHOUT THE NIGHT. ON EXAMINATION, HEART IS REGULAR IN RATE AND RHYHTM. BILATERAL LUNGS NOTED WITH DIMINISHED LUNG SOUNDS THROUGHOUT. ABDOMEN IS DISTENDED, BUT NON-TENDER WITH NORMAL BOWEL SOUNDS NOTED IN ALL QUADRANTS. HIS VITALS THIS MORNING ARE: 97.6-99-22-96%-133/63. LABS WERE OBTAINED. ABNORMAL LAB VALUES INCLUDE THE FOLLOWING: WBC 13.5, RBC 3.10, HGB 10.4, HCT 30.3, PLT COUNT 119, CHLORIDE 109, BUN 35, CREATININE 2.57, GLUCOSE 109, CALCIUM 8.3, TOTAL BILI 3.70, ALT 11, ALK PHOS 131, AMMONIA 54, TOTAL PROTEIN 5.6, ALBUMIN 2.4. HE IS CURRENTLY RECEIVING NORMAL SALINE AT 150 ML/HR, THE POTASSIUM AND MAGNESIUM PROTOCOLS, ROCEPHIN 1G IV DAILY, VALIUM 5MG IV Q8H PRN, LACTULOSE 30ML PO TID, AND HIS HOME MEDICATIONS WERE RESUMED. , AUTOMATIC LOG CUT OFF [place], HAS BEEN NOTIFIED OF REQUEST FOR CONSULT. TODAY, WE WILL ADD HALDOL 4MG IM Q4H PRN AGITATION. OTHERWISE, WE WILL CONTINUE WITH CURRENT PLAN OF CARE TODAY. WE PLAN TO FOLLOW UP WITH AM LABS AND CONTINUE TO MONITOR. TIME SPENT ON CLINICAL ASSESSMENT, REVIEWING LABS AND IMAGING, DECISION MAKING, AND DOCUMENTATION GREATER THAN 45 MINUTES - Past Medical Family Social History Past Med/Fam/Surg Hx: No changes since H&P Allergies: Allergies levofloxacin [From Levaquin] Allergy (Verified 07/29/21 07:31) - Review of Systems ROS: No change since H&P - Vital Signs and I&O's Vital Signs: Temperature 97.6 F Pulse Rate [Radial] 99 Pulse Rate 85 Respiratory Rate 22 Blood Pressure [Right Arm] 133/63 Blood Pressure [Left Arm] 120/68 Blood Pressure 144/86 O2 Sat by Pulse Oximetry 96 Intake and Output: Intake & Output 09/09/21 09/10/21 09/11/21 09/12/21 11:59 11:59 11:59 11:59 Intake Total 1195 / 1195 435 / 435 5025 / 5025 3175 / 3175 Output Total 505 / 505 0 / 0 Balance 1195 / 1195 435 / 435 4520 / 4520 3175 / 3175 - Physical Exam Oriented: Not Oriented Eyes: Normal Ear: Normal Nose: Normal Throat: Normal Respiratory: Normal Cardiovascular: Normal, Edema : Normal Auscultation: Bowel Sounds: Normal Tenderness: Normal Skin: Normal Musculoskeletal: Normal Psychiatric: Agitation Mood Description: Anxious, Appropriate Affect: Normal Speech Pattern: Clear - Laboratory and Diagnostics Result Diagrams: 09/12/21 06:37 09/12/21 06:47 Labs: Laboratory WBC 13.5 X10^3/uL (3.6-10.0) H 09/12/21 06:37 RBC 3.10 X10^6/uL (4.7-6.0) L 09/12/21 06:37 Hgb 10.4 g/dL (13.5-18.0) L 09/12/21 06:37 Hct 30.3 % (42.0-54.0) L 09/12/21 06:37 MCV 97.8 fL (80.0-100.0) 09/12/21 06:37 MCH 33.4 pg (27.0-34.0) 09/12/21 06:37 MCHC 34.2 g/dL (33.0-35.0) 09/12/21 06:37 RDW 17.7 % (11.6-16.5) H 09/12/21 06:37 Plt Count 119 X10^3/uL (150.0-450.0) L 09/12/21 06:37 Plt Count Comment Decreased (ADEQUATE) 09/10/21 05:05 MPV 6.5 fL (7.4-11.0) L 09/12/21 06:37 Neut % (Auto) 61.1 % (42.0-75.0) 09/12/21 06:37 Lymph % (Auto) 23.5 % (21.0-51.0) 09/12/21 06:37 [place] % (Auto) 9.9 % (0.0-13.0) 09/12/21 06:37 Eos % (Auto) 5.1 % (0.9-2.9) H 09/12/21 06:37 Baso % (Auto) 0.4 % (0.2-1.0) 09/12/21 06:37 Neut # (Auto) 8.2 x10^3/uL (2.2-4.8) H 09/12/21 06:37 Lymph # (Auto) 3.2 X10^3/uL (1.3-2.9) H 09/12/21 06:37 [place] # (Auto) 1.3 x10^3/uL (0.3-0.8) H 09/12/21 06:37 Eos # (Auto) 0.7 x10^3/uL (0.0-0.2) H 09/12/21 06:37 Baso # (Auto) 0.1 X10^3/uL (0.0-0.1) 09/12/21 06:37 Absolute Nucleated RBC 0.0 /100WBC 09/12/21 06:37 Total Counted 100 09/10/21 05:05 Neutrophils % (Manual) 71 % (39-76) 09/10/21 05:05 Lymphocytes % (Manual) 21 % (13-43) 09/10/21 05:05 Monocytes % (Manual) 2 % (4-9) L 09/10/21 05:05 Eosinophils % (Manual) 6 % (0-6) 09/10/21 05:05 Plt Morphology Comment Normal (NORMAL) 09/10/21 05:05 RBC Morphology Normal (NORMAL) 09/10/21 05:05 PT 19.3 SECONDS (11.8-14.3) 09/08/21 05:38 INR Target Range - 09/08/21 05:38 INR 1.72 (0.8-1.3) H 09/08/21 05:38 APTT 43.4 SECONDS (22.9-36.5) H 09/08/21 05:38 PTT Comment - 09/08/21 05:38 Sodium 144 mmol/L (136-145) 09/12/21 06:47 Corrected Sodium TNP 09/12/21 06:47 Potassium 3.5 mmol/L (3.5-5.1) 09/12/21 06:47 Chloride 109 mmol/L (98-107) H 09/12/21 06:47 Carbon Dioxide 23.3 mmol/L (21-32) 09/12/21 06:47 BUN 35 mg/dL (7-18) H 09/12/21 06:47 Creatinine 2.57 mg/dL (0.70-1.30) H 09/12/21 06:47 Est GFR (MDRD) Af Amer 33 (>60) L 09/12/21 06:47 Est GFR (MDRD) Non-Af 27 (>60) L 09/12/21 06:47 Glucose 109 mg/dL (65-99) H 09/12/21 06:47 Calcium 8.3 mg/dL (8.5-10.1) L 09/12/21 06:47 Corrected Calcium 9.6 mg/dL (8.5-10.1) 09/12/21 06:47 Magnesium 2.3 mg/dL (1.7-2.9) 09/10/21 05:05 Total Bilirubin 3.70 mg/dL (0.2-1.0) H 09/12/21 06:47 AST 27 Units/L (15-37) 09/12/21 06:47 ALT 11 Units/L (12-78) L 09/12/21 06:47 Alkaline Phosphatase 131 Units/L (46-116) H 09/12/21 06:47 Ammonia 54 umol/L (11-32) H 09/12/21 06:47 Creatine Kinase 34 Units/L (39-308) L 09/08/21 05:38 CK-MB (CK-2) < 1.0 ng/mL (0-4.0) 09/08/21 05:38 CK/CKMB % Calc 2.9 % (<4) 09/08/21 05:38 Troponin I < 0.02 ng/mL (0-1.5) 09/08/21 05:38 B-Natriuretic Peptide 104 pg/mL (0-79) H 09/07/21 13:58 Total Protein 5.6 g/dL (6.4-8.2) L 09/12/21 06:47 Albumin 2.4 g/dL (3.4-5.0) L 09/12/21 06:47 Globulin 3.2 g/dL (2.5-4.5) 09/12/21 06:47 Albumin/Globulin Ratio 0.8 Ratio (1.1-2.1) L 09/12/21 06:47 Specimen Type Clean catch urine 09/08/21 11:12 Urine Color Dark yellow (YELLOW) 09/08/21 11:12 Urine Appearance Clear (CLEAR) 09/08/21 11:12 Urine pH 6.0 (5.0 - 8.0) 09/08/21 11:12 Ur Specific [place] 1.015 (1.000-1.030) 09/08/21 11:12 Urine Protein 1+ (NEGATIVE) 09/08/21 11:12 Urine Glucose (UA) 2+ (NEGATIVE) 09/08/21 11:12 Urine Ketones Negative (NEGATIVE) 09/08/21 11:12 Urine Occult Blood 5+ (NEGATIVE) 09/08/21 11:12 Urine Nitrite Negative (NEGATIVE) 09/08/21 11:12 Urine Bilirubin Negative (NEGATIVE) 09/08/21 11:12 Urine Urobilinogen 2+ (NORMAL) 09/08/21 11:12 Ur Leukocyte Esterase Negative (NEGATIVE) 09/08/21 11:12 Urine RBC 10-20 /HPF (0-3) A 09/08/21 11:12 Urine WBC 0-2 /HPF (0-5) 09/08/21 11:12 Ur Squamous Epith Cells Rare /HPF (NEGATIVE) 09/08/21 11:12 Urine Bacteria Trace /HPF (NEGATIVE) 09/08/21 11:12 Hyaline Casts Few /LPF (NEGATIVE) 09/08/21 11:12 Urine Mucus Few /HPF (NEGATIVE) 09/08/21 11:12 Ur Culture Indicated? No/not indicated 09/08/21 11:12 SARS-CoV-2 (PCR) Negative (NEGATIVE) 09/07/21 16:48 Influenza Type A (PCR) Negative (NEGATIVE) 09/07/21 16:48 Influenza Type B (PCR) Negative (NEGATIVE) 09/07/21 16:48 RSV (PCR) Negative (NEGATIVE) 09/07/21 16:48 - Plan (1) Encephalopathy, hepatic Status: Acute Plan: NORMAL SALINE AT 150 ML/HR, THE POTASSIUM AND MAGNESIUM PROTOCOLS, ROCEPHIN 1G IV DAILY, LACTULOSE 30ML PO TID, HALDOL 4MG IM Q4H PRN, AND HIS HOME MEDICATIONS WERE RESUMED. (2) Acute renal failure Status: Acute Qualifiers: Acute renal failure type: unspecified (3) Cirrhosis of liver with ascites Status: Acute Qualifiers: Hepatic cirrhosis type: unspecified hepatic cirrhosis
[2021-09-12] MEDS: GEODON INJ IM PRN ×2 (15:49→21:22)
--- NOTE | 2021-09-12 17:23 | DR.CONSULT ---
<Joelle Moctezuma - Last Filed: 09/12/21 17:19> Consult - Consultation for Day of: Date: 09/12/21 - Chief Complaint Chief Complaint: Patient referred for cirrhosis. Patient with AMS unable to obtain accurate ROS. - Allergies Allergies/Adverse Reactions: Allergies Allergy/AdvReac Type Severity Reaction Status Date / Time levofloxacin [From Levaquin] Allergy Verified 07/29/21 07:31 - History of Present Illness History of Present Illness: Patient is a 61 yo referred for cirrhosis. Patient with AMS unable to obtain accurate ROS. Spoke with patient has not had any Gi complaints at home. hgb 10.4, Hct 30.3, Plt 119, BUN 35, Creatinine 2.57, T. Bili 3.7, AST 27, ALT 11, ALP 131, Ammonia 54 - Past Medical History Past Medical History: Hypertension, Anxiety, Hypothyroidism, Kidney Stones, Gout - Past Surgical History Surgical History: Cholecystectomy - Family History Family Medical History: Hypertension - Social History Does patient currently use any type of tobacco product: No Have you used tobacco products in the last 12 months: No Type of Tobacco Use: None Alcohol Use: None Drug Use: None - Medications Home Medications: levofloxacin [From Levaquin] Allergy (Verified 07/29/21 07:31) - Physical Exam Vital Signs: Temperature 98.6 F Pulse Rate [Radial] 103 Pulse Rate 85 Respiratory Rate 26 Blood Pressure [Right Arm] 108/51 Blood Pressure [Left Arm] 120/68 Blood Pressure 144/86 O2 Sat by Pulse Oximetry 98 Oriented: Not Oriented Eyes: Normal Ear: Normal Nose: Normal Throat: Normal Respiratory: Clear Throughout Cardiovascular: Normal Palpation: Normal Tenderness: Normal Skin: Normal Musculoskeletal: Normal Psychiatric: Normal Mood Description: Anxious Affect: Normal (agitated) - Plan Plan: Assessment. 1. Cirrhosis of unknown etiology. Plan. 1. Cont lactulose, Xifaxan BID, EGD in am. Plan reviewed with Dr. Silvestre <JUDITH SILVESTRE - Last Filed: 09/15/21 03:57> Consult - Medications Home Medications: levofloxacin [From Levaquin] Allergy (Verified 07/29/21 07:31) - Physical Exam Vital Signs: Temperature 97.7 F Pulse Rate [Radial] 97 Pulse Rate 85 Respiratory Rate 20 Blood Pressure [Right Arm] 131/59 Blood Pressure [Left Arm] 173/69 Blood Pressure 144/86 O2 Sat by Pulse Oximetry 97
[2021-09-12] MEDS: AMBIEN PO SCH (21:21)
[2021-09-12] MEDS: CELEXA PO SCH (21:22)
[2021-09-12] MEDS: FLOMAX PO SCH (21:22)
[2021-09-12] MEDS: FLEXERIL TAB 10 MG PO SCH (21:22)
[2021-09-12] MEDS: PEPCID TAB 20 MG PO SCH (21:22)
[2021-09-13] MEDS: GEODON INJ IM PRN (03:16)
[2021-09-13] MEDS: CHRONULAC PO SCH ×3 (05:00→21:03)
[2021-09-13] MEDS: NS 1,000 ML IV 1,000 ML IV SCH ×2 (05:01→21:05)
[2021-09-13 06:09] LABS: ALANINE AMINOTRANSFERASE 13 Units/L (12-78); ALBUMIN 2.3 g/dL (3.4-5.0); ALKALINE PHOSPHATASE 125 Units/L (46-116); ASPARTATE AMINO TRANSFERASE 31 Units/L (15-37); BASOPHILS # (AUTO) 0.1 X10^3/uL (0.0-0.1); BASOPHILS % (AUTO) 0.5 % (0.2-1.0); BLOOD UREA NITROGEN 30 mg/dL (7-18); CALCIUM 8.1 mg/dL (8.5-10.1); CARBON DIOXIDE 20.6 mmol/L (21-32); CHLORIDE 110 mmol/L (98-107); COR CA(FOR HYPOALB) 9.5 mg/dL (8.5-10.1); CREATININE 1.78 mg/dL (0.70-1.30); EOSINOPHILS # (AUTO) 0.5 x10^3/uL (0.0-0.2); EOSINOPHILS % (AUTO) 3.5 % (0.9-2.9); HEMATOCRIT 28.6 % (42.0-54.0); HEMOGLOBIN 9.6 g/dL (13.5-18.0); LYMPHOCYTES # (AUTO) 2.8 X10^3/uL (1.3-2.9); LYMPHOCYTES % (AUTO) 20.6 % (21.0-51.0); MEAN CORPUSCULAR HEMOGLOBIN 32.9 pg (27.0-34.0); MEAN CORPUSCULAR HGB CONC 33.7 g/dL (33.0-35.0); MEAN CORPUSCULAR VOLUME 97.8 fL (80.0-100.0); MEAN PLATELET VOLUME 6.3 fL (7.4-11.0); MONOCYTES # (AUTO) 1.6 x10^3/uL (0.3-0.8); MONOCYTES % (AUTO) 11.9 % (0.0-13.0); NEUTROPHILS # (AUTO) 8.5 x10^3/uL (2.2-4.8); NEUTROPHILS % (AUTO) 63.5 % (42.0-75.0); PLATELET COUNT 121 X10^3/uL (150.0-450.0); RED BLOOD COUNT 2.92 X10^6/uL (4.7-6.0); SODIUM 144 mmol/L (136-145); TOTAL PROTEIN 5.3 g/dL (6.4-8.2); WHITE BLOOD COUNT 13.4 X10^3/uL (3.6-10.0); eGFR NON BLACK RACES 42 (>60)
[2021-09-13 06:41] LABS: AMMONIA 42 umol/L (11-32)
[2021-09-13] MEDS: MAG-OX TAB PO SCH (08:44)
[2021-09-13] MEDS: HYZAAR 50/12.5 MG PO SCH (08:44)
[2021-09-13] MEDS: SYNTHROID 150 mcg TAB PO SCH (08:45)
[2021-09-13] MEDS: ROCEPHIN VIAL 1 GRAM 1 G in NS 100 ML IV + SPIKE MINIBAG* 100 ML IV SCH (08:45)
[2021-09-13] MEDS: ALBUMIN HUMAN 25%- 100 ML 100 ML IV SCH ×2 (11:09→13:17)
--- NOTE | 2021-09-13 12:06 | PCM.PROG ---
Progress Note - Progress Note for Day of Date of Exam: 09/13/21 - Subjective Subjective: WAS ADMITTED ON 09/08 FOR TREATMENT OF HEPATIC ENCEPHALOPATHY, DEDHYDRATION, ACUTE RENAL FAILURE, AND FREQUENT FALLS. PATIENT HAS A HISTORY OF CIRRHOSIS. HE WAS RECENTLY HOSPITALIZED FOR SAME DIAGNOSIS. HE HAD A PORT A CATH INSERTED ON FRIDAY. TODAY, HE IS DROWSY, LYING IN BED ON MORNING ROUNDS. STAFF REPORTS THAT HE HAS BEEN CONFUSED AND AGITATED ALL THROUGHOUT THE NIGHT AND THIS MORNING. HE HAS PULLED AT MEDICAL EQUIPMENT, IV LINES, AND ATTEMPTED TO GET OUT OF BED. IV MEDICATION WAS GIVEN WITH ONLY MINIMAL RESULTS. PATIENT DID REQUIRE USE OF RESTRAINTS THROUGHOUT THE NIGHT. ON EXAMINATION, HEART IS REGULAR IN RATE AND RHYHTM. BILATERAL LUNGS NOTED WITH DIMINISHED LUNG SOUNDS THROUGHOUT. ABDOMEN IS DISTENDED, BUT NON-TENDER WITH NORMAL BOWEL SOUNDS NOTED IN ALL QUADRANTS. HIS VITALS THIS MORNING ARE: 98.8-100-24-98%-166/73. LABS WERE OBTAINED. ABNORMAL LAB VALUES INCLUDE THE FOLLOWING: WBC 13.4, RBC 2.92, HGB 9.6, HCT 28.6, PLT COUNT 121, POTASSIUM 3.4, CHLORIDE 110, BUN 30, CREATININE 1.78, GLUCOSE 105, CALCIUM 8.1, TOTAL BILI 4.00, ALK PHOS 125, AMMONIA 42, TOTAL PROTEIN 5.3, ALBUMIN 2.3. HE IS CURRENTLY RECEIVING NORMAL SALINE AT 150 ML/HR, THE POTASSIUM AND MAGNESIUM PROTOCOLS, ROCEPHIN 1G IV DAILY, GEODON 10MG IM Q6H PRN, LACTULOSE 30ML PO TID, AND HIS H OME MEDICATIONS WERE RESUMED. TODAY, WE WILL DISCONTINUE GEODON AND ADD HALDOL 4MG IM Q4H PRN AGITATION. WE WILL ALSO ADD ALBUMIN 25% IV DAILY. OTHERWISE, WE WILL CONTINUE WITH CURRENT PLAN OF CARE TODAY. WE PLAN TO FOLLOW UP WITH AM LABS AND CONTINUE TO MONITOR. TIME SPENT ON CLINICAL ASSESSMENT, REVIEWING LABS AND IMAGING, DECISION MAKING, AND DOCUMENTATION GREATER THAN 45 MINUTES - Past Medical Family Social History Past Med/Fam/Surg Hx: No changes since H&P Allergies: Allergies levofloxacin [From Levaquin] Allergy (Verified 07/29/21 07:31) - Review of Systems ROS: No change since H&P - Vital Signs and I&O's Vital Signs: Temperature 98.8 F Pulse Rate [Radial] 114 Pulse Rate 85 Respiratory Rate 24 Blood Pressure [Right Arm] 166/73 Blood Pressure [Left Arm] 120/68 Blood Pressure 144/86 O2 Sat by Pulse Oximetry 98 Intake and Output: Intake & Output 09/11/21 09/12/21 09/13/21 09/14/21 11:59 11:59 11:59 11:59 Intake Total 5025 / 5025 3175 / 3175 4340 / 4340 Output Total 505 / 505 0 / 0 Balance 4520 / 4520 3175 / 3175 4340 / 4340 - Physical Exam Oriented: Not Oriented Eyes: Normal Ear: Normal Nose: Normal Throat: Normal Respiratory: Normal Cardiovascular: Normal : Normal Auscultation: Bowel Sounds: Normal Tenderness: Normal Skin: Normal Musculoskeletal: Normal Psychiatric: Normal Mood Description: Anxious Affect: Normal (agitated) Speech Pattern: Unclear, Inappropriate - Laboratory and Diagnostics Result Diagrams: 09/13/21 05:35 09/13/21 05:35 Labs: Laboratory WBC 13.4 X10^3/uL (3.6-10.0) H 09/13/21 05:35 RBC 2.92 X10^6/uL (4.7-6.0) L 09/13/21 05:35 Hgb 9.6 g/dL (13.5-18.0) L 09/13/21 05:35 Hct 28.6 % (42.0-54.0) L 09/13/21 05:35 MCV 97.8 fL (80.0-100.0) 09/13/21 05:35 MCH 32.9 pg (27.0-34.0) 09/13/21 05:35 MCHC 33.7 g/dL (33.0-35.0) 09/13/21 05:35 RDW 18.0 % (11.6-16.5) H 09/13/21 05:35 Plt Count 121 X10^3/uL (150.0-450.0) L 09/13/21 05:35 Plt Count Comment Decreased (ADEQUATE) 09/10/21 05:05 MPV 6.3 fL (7.4-11.0) L 09/13/21 05:35 Neut % (Auto) 63.5 % (42.0-75.0) 09/13/21 05:35 Lymph % (Auto) 20.6 % (21.0-51.0) L 09/13/21 05:35 [place] % (Auto) 11.9 % (0.0-13.0) 09/13/21 05:35 Eos % (Auto) 3.5 % (0.9-2.9) H 09/13/21 05:35 Baso % (Auto) 0.5 % (0.2-1.0) 09/13/21 05:35 Neut # (Auto) 8.5 x10^3/uL (2.2-4.8) H 09/13/21 05:35 Lymph # (Auto) 2.8 X10^3/uL (1.3-2.9) 09/13/21 05:35 [place] # (Auto) 1.6 x10^3/uL (0.3-0.8) H 09/13/21 05:35 Eos # (Auto) 0.5 x10^3/uL (0.0-0.2) H 09/13/21 05:35 Baso # (Auto) 0.1 X10^3/uL (0.0-0.1) 09/13/21 05:35 Absolute Nucleated RBC 0.0 /100WBC 09/13/21 05:35 Total Counted 100 09/10/21 05:05 Neutrophils % (Manual) 71 % (39-76) 09/10/21 05:05 Lymphocytes % (Manual) 21 % (13-43) 09/10/21 05:05 Monocytes % (Manual) 2 % (4-9) L 09/10/21 05:05 Eosinophils % (Manual) 6 % (0-6) 09/10/21 05:05 Plt Morphology Comment Normal (NORMAL) 09/10/21 05:05 RBC Morphology Normal (NORMAL) 09/10/21 05:05 PT 19.3 SECONDS (11.8-14.3) 09/08/21 05:38 INR Target Range - 09/08/21 05:38 INR 1.72 (0.8-1.3) H 09/08/21 05:38 APTT 43.4 SECONDS (22.9-36.5) H 09/08/21 05:38 PTT Comment - 09/08/21 05:38 Sodium 144 mmol/L (136-145) 09/13/21 05:35 Corrected Sodium TNP 09/13/21 05:35 Potassium 3.4 mmol/L (3.5-5.1) L 09/13/21 05:35 Chloride 110 mmol/L (98-107) H 09/13/21 05:35 Carbon Dioxide 20.6 mmol/L (21-32) L 09/13/21 05:35 BUN 30 mg/dL (7-18) H 09/13/21 05:35 Creatinine 1.78 mg/dL (0.70-1.30) H 09/13/21 05:35 Est GFR (MDRD) Af Amer 51 (>60) L 09/13/21 05:35 Est GFR (MDRD) Non-Af 42 (>60) L 09/13/21 05:35 Glucose 105 mg/dL (65-99) H 09/13/21 05:35 Calcium 8.1 mg/dL (8.5-10.1) L 09/13/21 05:35 Corrected Calcium 9.5 mg/dL (8.5-10.1) 09/13/21 05:35 Magnesium 2.3 mg/dL (1.7-2.9) 09/10/21 05:05 Total Bilirubin 4.00 mg/dL (0.2-1.0) H 09/13/21 05:35 AST 31 Units/L (15-37) 09/13/21 05:35 ALT 13 Units/L (12-78) 09/13/21 05:35 Alkaline Phosphatase 125 Units/L (46-116) H 09/13/21 05:35 Ammonia 42 umol/L (11-32) H 09/13/21 05:35 Creatine Kinase 34 Units/L (39-308) L 09/08/21 05:38 CK-MB (CK-2) < 1.0 ng/mL (0-4.0) 09/08/21 05:38 CK/CKMB % Calc 2.9 % (<4) 09/08/21 05:38 Troponin I < 0.02 ng/mL (0-1.5) 09/08/21 05:38 B-Natriuretic Peptide 104 pg/mL (0-79) H 09/07/21 13:58 Total Protein 5.3 g/dL (6.4-8.2) L 09/13/21 05:35 Albumin 2.3 g/dL (3.4-5.0) L 09/13/21 05:35 Globulin 3.0 g/dL (2.5-4.5) 09/13/21 05:35 Albumin/Globulin Ratio 0.8 Ratio (1.1-2.1) L 09/13/21 05:35 Specimen Type Clean catch urine 09/08/21 11:12 Urine Color Dark yellow (YELLOW) 09/08/21 11:12 Urine Appearance Clear (CLEAR) 09/08/21 11:12 Urine pH 6.0 (5.0 - 8.0) 09/08/21 11:12 Ur Specific [place] 1.015 (1.000-1.030) 09/08/21 11:12 Urine Protein 1+ (NEGATIVE) 09/08/21 11:12 Urine Glucose (UA) 2+ (NEGATIVE) 09/08/21 11:12 Urine Ketones Negative (NEGATIVE) 09/08/21 11:12 Urine Occult Blood 5+ (NEGATIVE) 09/08/21 11:12 Urine Nitrite Negative (NEGATIVE) 09/08/21 11:12 Urine Bilirubin Negative (NEGATIVE) 09/08/21 11:12 Urine Urobilinogen 2+ (NORMAL) 09/08/21 11:12 Ur Leukocyte Esterase Negative (NEGATIVE) 09/08/21 11:12 Urine RBC 10-20 /HPF (0-3) A 09/08/21 11:12 Urine WBC 0-2 /HPF (0-5) 09/08/21 11:12 Ur Squamous Epith Cells Rare /HPF (NEGATIVE) 09/08/21 11:12 Urine Bacteria Trace /HPF (NEGATIVE) 09/08/21 11:12 Hyaline Casts Few /LPF (NEGATIVE) 09/08/21 11:12 Urine Mucus Few /HPF (NEGATIVE) 09/08/21 11:12 Ur Culture Indicated? No/not indicated 09/08/21 11:12 SARS-CoV-2 (PCR) Negative (NEGATIVE) 09/07/21 16:48 Influenza Type A (PCR) Negative (NEGATIVE) 09/07/21 16:48 Influenza Type B (PCR) Negative (NEGATIVE) 09/07/21 16:48 RSV (PCR) Negative (NEGATIVE) 09/07/21 16:48 - Plan (1) Encephalopathy, hepatic Status: Acute Plan: NORMAL SALINE AT 150 ML/HR, THE POTASSIUM AND MAGNESIUM PROTOCOLS, ROCEPHIN 1G IV DAILY, LACTULOSE 30ML PO TID, HALDOL 4MG IM Q4H PRN, AND HIS HOME MEDICATIONS WERE RESUMED. (2) Acute renal failure Status: Acute Qualifiers: Acute renal failure type: unspecified (3) Cirrhosis of liver with ascites Status: Acute Qualifiers: Hepatic cirrhosis type: unspecified hepatic cirrhosis
[2021-09-13] MEDS ORDERED: KETALAR ONE (12:32)
[2021-09-13] MEDS ORDERED: XYLOCAINE 1 % (PLAIN) ONE (12:39)
[2021-09-13] MEDS ORDERED: DIPRIVAN VIAL 20 ML ONE (13:31)
--- NOTE | 2021-09-13 15:07 | US ---
HISTORYABD DISTENTION, ASCITIES cholecystectomySTUDYLIVERCOMPARISONCT abdomen and pelvis 08/15/2021TECHNIQUETwenty-seven images made by the drywall sander. Tatum scale and color-flow doppler images of the right upper quadrant were obtained.FINDINGSThe liver has coarse echogenicity and a lobular contour suggesting cirrhosis. Has a normal size measuring about 15 cm. No mass or intrahepatic biliary duct dilatation is present.The intrahepatic inferior vena cava was imaged. The hepatic artery was patent.Small volume ascites is noted around the liver.No fluid noted in the upper left abdomen around the spleen. No fluid in the right lower quadrant or left lower quadrant.IMPRESSION1. Small volume ascites around the liver2. Findings suggesting hepatic cirrhosisElectronically signed by: Adonis Bhat (Sep 13, 2021 15:06:10)
[2021-09-13] MEDS: AMBIEN PO SCH (20:52)
[2021-09-13] MEDS: PEPCID TAB 20 MG PO SCH (20:52)
[2021-09-13] MEDS: CELEXA PO SCH (20:52)
[2021-09-13] MEDS: FLEXERIL TAB 10 MG PO SCH (20:52)
[2021-09-13] MEDS: FLOMAX PO SCH (20:52)
[2021-09-14] MEDS: HALDOL INJ IVP PRN ×3 (00:57→16:41)
[2021-09-14] MEDS: CHRONULAC PO SCH ×3 (05:20→21:00)
[2021-09-14] MEDS: NS 1,000 ML IV 1,000 ML IV SCH (05:41)
[2021-09-14 05:53] LABS: BASOPHILS % (AUTO) 0.4 % (0.2-1.0); EOSINOPHILS # (AUTO) 0.3 x10^3/uL (0.0-0.2); EOSINOPHILS % (AUTO) 3.1 % (0.9-2.9); HEMATOCRIT 27.2 % (42.0-54.0); HEMOGLOBIN 9.4 g/dL (13.5-18.0); LYMPHOCYTES # (AUTO) 2.5 X10^3/uL (1.3-2.9); LYMPHOCYTES % (AUTO) 22.7 % (21.0-51.0); MEAN CORPUSCULAR HEMOGLOBIN 33.8 pg (27.0-34.0); MEAN CORPUSCULAR HGB CONC 34.6 g/dL (33.0-35.0); MEAN CORPUSCULAR VOLUME 97.8 fL (80.0-100.0); MEAN PLATELET VOLUME 6.2 fL (7.4-11.0); MONOCYTES # (AUTO) 1.3 x10^3/uL (0.3-0.8); MONOCYTES % (AUTO) 11.8 % (0.0-13.0); NEUTROPHILS # (AUTO) 6.9 x10^3/uL (2.2-4.8); PLATELET COUNT 115 X10^3/uL (150.0-450.0); RED BLOOD COUNT 2.78 X10^6/uL (4.7-6.0); RED CELL DISTRIBUTION WIDTH 17.1 % (11.6-16.5); WHITE BLOOD COUNT 11.2 X10^3/uL (3.6-10.0)
[2021-09-14 05:58] LABS: AMMONIA 44 umol/L (11-32)
[2021-09-14 06:08] LABS: ALANINE AMINOTRANSFERASE 12 Units/L (12-78); ALBUMIN 2.5 g/dL (3.4-5.0); ALKALINE PHOSPHATASE 118 Units/L (46-116); ASPARTATE AMINO TRANSFERASE 30 Units/L (15-37); BLOOD UREA NITROGEN 27 mg/dL (7-18); CALCIUM 8.2 mg/dL (8.5-10.1); CARBON DIOXIDE 22.1 mmol/L (21-32); COR CA(FOR HYPOALB) 9.4 mg/dL (8.5-10.1); CREATININE 1.48 mg/dL (0.70-1.30); SODIUM 148 mmol/L (136-145); TOTAL PROTEIN 5.3 g/dL (6.4-8.2); eGFR NON BLACK RACES 52 (>60)
[2021-09-14 06:16] LABS: CHLORIDE 115 mmol/L (98-107)
[2021-09-14] MEDS: ALBUMIN HUMAN 25%- 100 ML 100 ML IV SCH (08:48)
[2021-09-14] MEDS: HYZAAR 50/12.5 MG PO SCH (08:48)
[2021-09-14] MEDS: SYNTHROID 150 mcg TAB PO SCH (08:49)
[2021-09-14] MEDS: MAG-OX TAB PO SCH (08:49)
[2021-09-14] MEDS: ROCEPHIN VIAL 1 GRAM 1 G in NS 100 ML IV + SPIKE MINIBAG* 100 ML IV SCH (09:34)
[2021-09-14] MEDS: LOVENOX INJ 40 MG SYR SC SCH (09:55)
--- NOTE | 2021-09-14 10:12 | PCM.PROG ---
Progress Note - Progress Note for Day of Date of Exam: 09/14/21 - Subjective Subjective: WAS ADMITTED ON 09/08 FOR TREATMENT OF HEPATIC ENCEPHALOPATHY, DEDHYDRATION, ACUTE RENAL FAILURE, AND FREQUENT FALLS. PATIENT HAS A HISTORY OF CIRRHOSIS. HE WAS RECENTLY HOSPITALIZED FOR SAME DIAGNOSIS. HE HAD A PORT A CATH INSERTED ON FRIDAY. TODAY, HE IS DROWSY, LYING IN BED ON MORNING ROUNDS. STAFF REPORTS THAT HE HAS BEEN CONFUSED AND AGITATED ALL THROUGHOUT THE NIGHT AND THIS MORNING. HE HAS PULLED AT MEDICAL EQUIPMENT, IV LINES, AND ATTEMPTED TO GET OUT OF BED. HE CONTINUES TO REQUIRE USE OF RESTRAINTS DUE TO AGITATION AND BEING COMBATIVE AT TIMES. ON EXAMINATION, HEART IS REGULAR IN RATE AND RHYHTM. BILATERAL LUNGS NOTED WITH DIMINISHED LUNG SOUNDS THROUGHOUT. ABDOMEN IS DISTENDED, BUT NON-TENDER WITH NORMAL BOWEL SOUNDS NOTED IN ALL QUADRANTS. HIS VITALS THIS MORNING ARE: 98.1-98-20-97%-150/71. LABS WERE OBTAINED. ABNORMAL LAB VALUES INCLUDE THE FOLLOWING: WBC 11.2, RBC 2.78, HGB 9.4, HCT 27.2, PLT COUNT 115, SODIUM 148, CHLORIDE 115, BUN 27, CREATININE 1.48, TOTAL BILI 3.80, ALK PHOS 118, AMMONIA 44, TOTAL PROTEIN 5.3, ALBUMIN 2.5. EGD WAS DONE BY YESTERDAY. FINDINGS INCLUDE GRADE I NON-BLEEDING ESOPHAGEAL VARICIES, MODERATELY SEVERE PORTAL HYPERTENSIVE GASTROPATHY, EROSIVE GASTRITIS. HE IS CURRENTLY RECEIVING NORMAL SALINE AT 150 ML/HR, ALBUMIN 25% IV DAILY, THE POTASSIUM AND MAGNESIUM PROTOCOLS, ROCEPHIN 1G IV DAILY, HALDOL 4MG IV Q4H PRN, LACTULOSE 30ML PO TID, AND HIS HOME MEDICATIONS WERE RESUMED. TODAY, WE WILL ADD XIFAXIN BID AND CHANGE IV FLUIDS TO 1/2NS AT 100 ML/HR. AND I ARE IN AGREEMENT THAT PATIENT NEEDS A LIVER TRANSPLANT EVALUATION. INTIATED. HIS MELD SCORE WAS 24. OTHERWISE, WE WILL CONTINUE WITH CURRENT PLAN OF CARE TODAY. WE PLAN TO FOLLOW UP WITH AM LABS AND CONTINUE TO MONITOR. TIME SPENT ON CLINICAL ASSESSMENT, REVIEWING LABS AND IMAGING, DECISION MAKING, AND DOCUMENTATION GREATER THAN 45 MINUTES - Past Medical Family Social History Past Med/Fam/Surg Hx: No changes since H&P Allergies: Allergies levofloxacin [From Levaquin] Allergy (Verified 07/29/21 07:31) - Review of Systems ROS: No change since H&P - Vital Signs and I&O's Vital Signs: Temperature 98.1 F Pulse Rate [Radial] 98 Pulse Rate 85 Respiratory Rate 20 Blood Pressure [Right Arm] 150/71 Blood Pressure [Left Arm] 120/68 Blood Pressure 144/86 O2 Sat by Pulse Oximetry 97 Intake and Output: Intake & Output 09/11/21 09/12/21 09/13/21 09/14/21 11:59 11:59 11:59 11:59 Intake Total 5025 / 5025 3175 / 3175 4340 / 4340 2701 / 2701 Output Total 505 / 505 0 / 0 Balance 4520 / 4520 3175 / 3175 4340 / 4340 2701 / 2701 - Physical Exam Oriented: Not Oriented Eyes: Normal Ear: Normal Nose: Normal Throat: Normal Respiratory: Normal Cardiovascular: Normal : Normal Auscultation: Bowel Sounds: Normal Tenderness: Normal Skin: Normal Musculoskeletal: Normal Psychiatric: Normal Mood Description: Anxious Affect: Normal (agitated) Speech Pattern: Unclear, Inappropriate - Laboratory and Diagnostics Result Diagrams: 09/14/21 04:28 09/14/21 04:28 Labs: Laboratory WBC 11.2 X10^3/uL (3.6-10.0) H 09/14/21 04:28 RBC 2.78 X10^6/uL (4.7-6.0) L 09/14/21 04:28 Hgb 9.4 g/dL (13.5-18.0) L 09/14/21 04:28 Hct 27.2 % (42.0-54.0) L 09/14/21 04:28 MCV 97.8 fL (80.0-100.0) 09/14/21 04:28 MCH 33.8 pg (27.0-34.0) 09/14/21 04:28 MCHC 34.6 g/dL (33.0-35.0) 09/14/21 04:28 RDW 17.1 % (11.6-16.5) H 09/14/21 04:28 Plt Count 115 X10^3/uL (150.0-450.0) L 09/14/21 04:28 Plt Count Comment Decreased (ADEQUATE) 09/10/21 05:05 MPV 6.2 fL (7.4-11.0) L 09/14/21 04:28 Neut % (Auto) 62.0 % (42.0-75.0) 09/14/21 04:28 Lymph % (Auto) 22.7 % (21.0-51.0) 09/14/21 04:28 [place] % (Auto) 11.8 % (0.0-13.0) 09/14/21 04:28 Eos % (Auto) 3.1 % (0.9-2.9) H 09/14/21 04:28 Baso % (Auto) 0.4 % (0.2-1.0) 09/14/21 04:28 Neut # (Auto) 6.9 x10^3/uL (2.2-4.8) H 09/14/21 04:28 Lymph # (Auto) 2.5 X10^3/uL (1.3-2.9) 09/14/21 04:28 [place] # (Auto) 1.3 x10^3/uL (0.3-0.8) H 09/14/21 04:28 Eos # (Auto) 0.3 x10^3/uL (0.0-0.2) H 09/14/21 04:28 Baso # (Auto) 0.0 X10^3/uL (0.0-0.1) 09/14/21 04:28 Absolute Nucleated RBC 0.1 /100WBC 09/14/21 04:28 Total Counted 100 09/10/21 05:05 Neutrophils % (Manual) 71 % (39-76) 09/10/21 05:05 Lymphocytes % (Manual) 21 % (13-43) 09/10/21 05:05 Monocytes % (Manual) 2 % (4-9) L 09/10/21 05:05 Eosinophils % (Manual) 6 % (0-6) 09/10/21 05:05 Plt Morphology Comment Normal (NORMAL) 09/10/21 05:05 RBC Morphology Normal (NORMAL) 09/10/21 05:05 PT 19.3 SECONDS (11.8-14.3) 09/08/21 05:38 INR Target Range - 09/08/21 05:38 INR 1.72 (0.8-1.3) H 09/08/21 05:38 APTT 43.4 SECONDS (22.9-36.5) H 09/08/21 05:38 PTT Comment - 09/08/21 05:38 Sodium 148 mmol/L (136-145) H 09/14/21 04:28 Corrected Sodium TNP 09/14/21 04:28 Potassium 3.5 mmol/L (3.5-5.1) 09/14/21 04:28 Chloride 115 mmol/L (98-107) H* 09/14/21 04:28 Carbon Dioxide 22.1 mmol/L (21-32) 09/14/21 04:28 BUN 27 mg/dL (7-18) H 09/14/21 04:28 Creatinine 1.48 mg/dL (0.70-1.30) H 09/14/21 04:28 Est GFR (MDRD) Af Amer > 60 (>60) 09/14/21 04:28 Est GFR (MDRD) Non-Af 52 (>60) L 09/14/21 04:28 Glucose 93 mg/dL (65-99) 09/14/21 04:28 Calcium 8.2 mg/dL (8.5-10.1) L 09/14/21 04:28 Corrected Calcium 9.4 mg/dL (8.5-10.1) 09/14/21 04:28 Magnesium 2.3 mg/dL (1.7-2.9) 09/10/21 05:05 Total Bilirubin 3.80 mg/dL (0.2-1.0) H 09/14/21 04:28 AST 30 Units/L (15-37) 09/14/21 04:28 ALT 12 Units/L (12-78) 09/14/21 04:28 Alkaline Phosphatase 118 Units/L (46-116) H 09/14/21 04:28 Ammonia 44 umol/L (11-32) H 09/14/21 04:28 Creatine Kinase 34 Units/L (39-308) L 09/08/21 05:38 CK-MB (CK-2) < 1.0 ng/mL (0-4.0) 09/08/21 05:38 CK/CKMB % Calc 2.9 % (<4) 09/08/21 05:38 Troponin I < 0.02 ng/mL (0-1.5) 09/08/21 05:38 B-Natriuretic Peptide 104 pg/mL (0-79) H 09/07/21 13:58 Total Protein 5.3 g/dL (6.4-8.2) L 09/14/21 04:28 Albumin 2.5 g/dL (3.4-5.0) L 09/14/21 04:28 Globulin 2.8 g/dL (2.5-4.5) 09/14/21 04:28 Albumin/Globulin Ratio 0.9 Ratio (1.1-2.1) L 09/14/21 04:28 Specimen Type Clean catch urine 09/08/21 11:12 Urine Color Dark yellow (YELLOW) 09/08/21 11:12 Urine Appearance Clear (CLEAR) 09/08/21 11:12 Urine pH 6.0 (5.0 - 8.0) 09/08/21 11:12 Ur Specific [place] 1.015 (1.000-1.030) 09/08/21 11:12 Urine Protein 1+ (NEGATIVE) 09/08/21 11:12 Urine Glucose (UA) 2+ (NEGATIVE) 09/08/21 11:12 Urine Ketones Negative (NEGATIVE) 09/08/21 11:12 Urine Occult Blood 5+ (NEGATIVE) 09/08/21 11:12 Urine Nitrite Negative (NEGATIVE) 09/08/21 11:12 Urine Bilirubin Negative (NEGATIVE) 09/08/21 11:12 Urine Urobilinogen 2+ (NORMAL) 09/08/21 11:12 Ur Leukocyte Esterase Negative (NEGATIVE) 09/08/21 11:12 Urine RBC 10-20 /HPF (0-3) A 09/08/21 11:12 Urine WBC 0-2 /HPF (0-5) 09/08/21 11:12 Ur Squamous Epith Cells Rare /HPF (NEGATIVE) 09/08/21 11:12 Urine Bacteria Trace /HPF (NEGATIVE) 09/08/21 11:12 Hyaline Casts Few /LPF (NEGATIVE) 09/08/21 11:12 Urine Mucus Few /HPF (NEGATIVE) 09/08/21 11:12 Ur Culture Indicated? No/not indicated 09/08/21 11:12 SARS-CoV-2 (PCR) Negative (NEGATIVE) 09/07/21 16:48 Influenza Type A (PCR) Negative (NEGATIVE) 09/07/21 16:48 Influenza Type B (PCR) Negative (NEGATIVE) 09/07/21 16:48 RSV (PCR) Negative (NEGATIVE) 09/07/21 16:48 - Plan (1) Encephalopathy, hepatic Status: Acute Plan: 1/2 NORMAL SALINE AT 100 ML/HR, THE POTASSIUM AND MAGNESIUM PROTOCOLS, ROCEPHIN 1G IV DAILY, LACTULOSE 30ML PO TID, XIFAXIN BID, PROTONIX 40MG IV DAILY, HALDOL 4MG IM Q4H PRN, AND HIS HOME MEDICATIONS WERE RESUMED. (2) Acute renal failure Status: Acute Qualifiers: Acute renal failure type: unspecified (3) Cirrhosis of liver with ascites Status: Acute Qualifiers: Hepatic cirrhosis type: unspecified hepatic cirrhosis
[2021-09-14] MEDS: PROTONIX INJ 40 MG VIAL IVP SCH (10:43)
[2021-09-14] MEDS: XIFAXAN PO SCH ×2 (10:43→20:43)
[2021-09-14] MEDS: MORPHINE SULFATE INJ 2 MG INJ IVP PRN ×2 (10:44→16:55)
[2021-09-14] MEDS ORDERED: NS 1/2 1,000 ML IV 1,000 ML IV ONE ×2 (10:53→20:30)
[2021-09-14] MEDS: NS 1/2 1,000 ML IV 1,000 ML IV SCH ×2 (11:33→22:00)
[2021-09-14 12:03] VITALS: BMI 44.4
[2021-09-14] MEDS: AMBIEN PO SCH (20:41)
[2021-09-14] MEDS: CELEXA PO SCH (20:41)
[2021-09-14] MEDS: FLOMAX PO SCH (20:42)
[2021-09-14] MEDS: FLEXERIL TAB 10 MG PO SCH (20:42)
[2021-09-14] MEDS: PEPCID TAB 20 MG PO SCH (20:42)
[2021-09-15] MEDS: CHRONULAC PO SCH ×3 (05:42→21:52)
[2021-09-15 07:11] LABS: BASOPHILS # (AUTO) 0.1 X10^3/uL (0.0-0.1); BASOPHILS % (AUTO) 0.5 % (0.2-1.0); EOSINOPHILS # (AUTO) 0.3 x10^3/uL (0.0-0.2); EOSINOPHILS % (AUTO) 3.2 % (0.9-2.9); HEMATOCRIT 28.1 % (42.0-54.0); HEMOGLOBIN 9.5 g/dL (13.5-18.0); LYMPHOCYTES # (AUTO) 2.9 X10^3/uL (1.3-2.9); LYMPHOCYTES % (AUTO) 27.9 % (21.0-51.0); MEAN CORPUSCULAR HEMOGLOBIN 33.1 pg (27.0-34.0); MEAN CORPUSCULAR HGB CONC 33.7 g/dL (33.0-35.0); MEAN PLATELET VOLUME 6.4 fL (7.4-11.0); MONOCYTES % (AUTO) 9.2 % (0.0-13.0); NEUTROPHILS # (AUTO) 6.1 x10^3/uL (2.2-4.8); NEUTROPHILS % (AUTO) 59.2 % (42.0-75.0); PLATELET COUNT 103 X10^3/uL (150.0-450.0); RED BLOOD COUNT 2.87 X10^6/uL (4.7-6.0); RED CELL DISTRIBUTION WIDTH 17.8 % (11.6-16.5); WHITE BLOOD COUNT 10.4 X10^3/uL (3.6-10.0)
[2021-09-15 07:21] LABS: AMMONIA 41 umol/L (11-32)
[2021-09-15 07:26] LABS: ALANINE AMINOTRANSFERASE 12 Units/L (12-78); ALBUMIN 2.6 g/dL (3.4-5.0); ALKALINE PHOSPHATASE 110 Units/L (46-116); ASPARTATE AMINO TRANSFERASE 28 Units/L (15-37); BLOOD UREA NITROGEN 27 mg/dL (7-18); CALCIUM 8.5 mg/dL (8.5-10.1); CARBON DIOXIDE 20.5 mmol/L (21-32); CHLORIDE 114 mmol/L (98-107); COR CA(FOR HYPOALB) 9.6 mg/dL (8.5-10.1); CREATININE 1.55 mg/dL (0.70-1.30); SODIUM 148 mmol/L (136-145); TOTAL PROTEIN 5.3 g/dL (6.4-8.2); eGFR NON BLACK RACES 49 (>60)
[2021-09-15] MEDS: PROTONIX INJ 40 MG VIAL IVP SCH (09:59)
[2021-09-15] MEDS: HYZAAR 50/12.5 MG PO SCH (09:59)
[2021-09-15] MEDS: SYNTHROID 150 mcg TAB PO SCH (10:00)
[2021-09-15] MEDS: MAG-OX TAB PO SCH (10:00)
[2021-09-15] MEDS: ROCEPHIN VIAL 1 GRAM 1 G in NS 100 ML IV + SPIKE MINIBAG* 100 ML IV SCH (10:00)
[2021-09-15] MEDS: XIFAXAN PO SCH ×2 (10:00→20:27)
[2021-09-15] MEDS: ALBUMIN HUMAN 25%- 100 ML 100 ML IV SCH (10:01)
[2021-09-15] MEDS: LOVENOX INJ 40 MG SYR SC SCH (10:46)
[2021-09-15] MEDS: MORPHINE SULFATE INJ 2 MG INJ IVP PRN ×2 (12:51→18:35)
[2021-09-15] MEDS: NS 1/2 1,000 ML IV 1,000 ML IV SCH ×2 (14:13→19:18)
[2021-09-15] MEDS ORDERED: NS 1/2 1,000 ML IV 1,000 ML IV ONE (19:10)
[2021-09-15] MEDS: AMBIEN PO SCH (20:27)
[2021-09-15] MEDS: PEPCID TAB 20 MG PO SCH (20:27)
[2021-09-15] MEDS: CELEXA PO SCH (20:27)
[2021-09-15] MEDS: FLEXERIL TAB 10 MG PO SCH (20:27)
[2021-09-15] MEDS: FLOMAX PO SCH (20:27)
[2021-09-15] MEDS: HALDOL INJ IVP PRN (20:33)
[2021-09-16 05:43] LABS: BASOPHILS % (AUTO) 0.2 % (0.2-1.0); EOSINOPHILS # (AUTO) 0.4 x10^3/uL (0.0-0.2); HEMATOCRIT 27.3 % (42.0-54.0); HEMOGLOBIN 9.1 g/dL (13.5-18.0); LYMPHOCYTES # (AUTO) 2.6 X10^3/uL (1.3-2.9); LYMPHOCYTES % (AUTO) 28.4 % (21.0-51.0); MEAN CORPUSCULAR HEMOGLOBIN 32.7 pg (27.0-34.0); MEAN CORPUSCULAR HGB CONC 33.5 g/dL (33.0-35.0); MEAN CORPUSCULAR VOLUME 97.6 fL (80.0-100.0); MEAN PLATELET VOLUME 6.7 fL (7.4-11.0); MONOCYTES # (AUTO) 0.9 x10^3/uL (0.3-0.8); MONOCYTES % (AUTO) 9.9 % (0.0-13.0); NEUTROPHILS # (AUTO) 5.3 x10^3/uL (2.2-4.8); NEUTROPHILS % (AUTO) 57.5 % (42.0-75.0); PLATELET COUNT 106 X10^3/uL (150.0-450.0); RED CELL DISTRIBUTION WIDTH 17.5 % (11.6-16.5); WHITE BLOOD COUNT 9.2 X10^3/uL (3.6-10.0)
[2021-09-16] MEDS: CHRONULAC PO SCH ×3 (05:54→21:01)
[2021-09-16 05:55] LABS: AMMONIA 41 umol/L (11-32)
[2021-09-16] MEDS: NS 1/2 1,000 ML IV 1,000 ML IV SCH ×3 (06:00→22:32)
[2021-09-16 06:01] LABS: ALANINE AMINOTRANSFERASE 13 Units/L (12-78); ALBUMIN 2.7 g/dL (3.4-5.0); ALKALINE PHOSPHATASE 108 Units/L (46-116); ASPARTATE AMINO TRANSFERASE 30 Units/L (15-37); BLOOD UREA NITROGEN 27 mg/dL (7-18); CALCIUM 8.5 mg/dL (8.5-10.1); CARBON DIOXIDE 19.6 mmol/L (21-32); CHLORIDE 112 mmol/L (98-107); COR CA(FOR HYPOALB) 9.5 mg/dL (8.5-10.1); CREATININE 1.82 mg/dL (0.70-1.30); SODIUM 146 mmol/L (136-145); TOTAL PROTEIN 5.4 g/dL (6.4-8.2); eGFR NON BLACK RACES 41 (>60)
[2021-09-16] MEDS ORDERED: NS 1/2 1,000 ML IV 1,000 ML IV ONE ×3 (06:03→22:27)
[2021-09-16] MEDS: ROCEPHIN VIAL 1 GRAM 1 G in NS 100 ML IV + SPIKE MINIBAG* 100 ML IV SCH (08:44)
[2021-09-16] MEDS: XIFAXAN PO SCH ×2 (08:45→20:10)
[2021-09-16] MEDS: MAG-OX TAB PO SCH (08:45)
[2021-09-16] MEDS: HYZAAR 50/12.5 MG PO SCH (08:45)
[2021-09-16] MEDS: ALBUMIN HUMAN 25%- 100 ML 100 ML IV SCH (08:46)
[2021-09-16] MEDS: SYNTHROID 150 mcg TAB PO SCH (08:46)
[2021-09-16] MEDS: PROTONIX INJ 40 MG VIAL IVP SCH (08:51)
[2021-09-16] MEDS: LOVENOX INJ 40 MG SYR SC SCH (09:34)
[2021-09-16] MEDS: MORPHINE SULFATE INJ 2 MG INJ IVP PRN (09:52)
[2021-09-16] MEDS: K-DUR TAB 20 MEQ PO PRN (09:57)
[2021-09-16] MEDS: AMBIEN PO SCH (20:09)
[2021-09-16] MEDS: CELEXA PO SCH (20:10)
[2021-09-16] MEDS: FLOMAX PO SCH (20:10)
[2021-09-16] MEDS: PEPCID TAB 20 MG PO SCH (20:10)
[2021-09-16] MEDS: FLEXERIL TAB 10 MG PO SCH (20:10)
[2021-09-17] MEDS: NS 1/2 1,000 ML IV 1,000 ML IV SCH ×4 (03:26→20:46)
[2021-09-17] MEDS ORDERED: NS 1/2 1,000 ML IV 1,000 ML IV ONE ×3 (05:11→20:24)
[2021-09-17] MEDS: CHRONULAC PO SCH ×5 (05:26→20:47)
[2021-09-17 06:14] LABS: BASOPHILS # (AUTO) 0.1 X10^3/uL (0.0-0.1); BASOPHILS % (AUTO) 0.8 % (0.2-1.0); EOSINOPHILS # (AUTO) 0.4 x10^3/uL (0.0-0.2); EOSINOPHILS % (AUTO) 4.9 % (0.9-2.9); HEMATOCRIT 26.1 % (42.0-54.0); LYMPHOCYTES % (AUTO) 37.3 % (21.0-51.0); MEAN CORPUSCULAR HEMOGLOBIN 33.6 pg (27.0-34.0); MEAN CORPUSCULAR HGB CONC 34.3 g/dL (33.0-35.0); MEAN CORPUSCULAR VOLUME 97.9 fL (80.0-100.0); MEAN PLATELET VOLUME 6.6 fL (7.4-11.0); MONOCYTES # (AUTO) 0.8 x10^3/uL (0.3-0.8); MONOCYTES % (AUTO) 9.5 % (0.0-13.0); NEUTROPHILS # (AUTO) 3.8 x10^3/uL (2.2-4.8); NEUTROPHILS % (AUTO) 47.5 % (42.0-75.0); PLATELET COUNT 94 X10^3/uL (150.0-450.0); RED BLOOD COUNT 2.67 X10^6/uL (4.7-6.0); RED CELL DISTRIBUTION WIDTH 17.3 % (11.6-16.5); WHITE BLOOD COUNT 8.1 X10^3/uL (3.6-10.0)
[2021-09-17 06:19] LABS: AMMONIA 55 umol/L (11-32)
[2021-09-17 06:25] LABS: ALANINE AMINOTRANSFERASE 14 Units/L (12-78); ALBUMIN 2.5 g/dL (3.4-5.0); ALKALINE PHOSPHATASE 101 Units/L (46-116); ASPARTATE AMINO TRANSFERASE 34 Units/L (15-37); BLOOD UREA NITROGEN 23 mg/dL (7-18); CALCIUM 8.2 mg/dL (8.5-10.1); CARBON DIOXIDE 19.9 mmol/L (21-32); CHLORIDE 112 mmol/L (98-107); COR CA(FOR HYPOALB) 9.4 mg/dL (8.5-10.1); CREATININE 1.61 mg/dL (0.70-1.30); SODIUM 143 mmol/L (136-145); eGFR NON BLACK RACES 47 (>60)
[2021-09-17] MEDS: HYZAAR 50/12.5 MG PO SCH (08:54)
[2021-09-17] MEDS: PROTONIX INJ 40 MG VIAL IVP SCH (08:54)
[2021-09-17] MEDS: MAG-OX TAB PO SCH (08:54)
[2021-09-17] MEDS: XIFAXAN PO SCH ×2 (08:55→20:47)
[2021-09-17] MEDS: SYNTHROID 150 mcg TAB PO SCH (08:55)
[2021-09-17] MEDS: ROCEPHIN VIAL 1 GRAM 1 G in NS 100 ML IV + SPIKE MINIBAG* 100 ML IV SCH (08:55)
[2021-09-17] MEDS: K-DUR TAB 20 MEQ PO PRN (09:04)
[2021-09-17] MEDS: ALBUMIN HUMAN 25%- 100 ML 100 ML IV SCH (09:06)
--- NOTE | 2021-09-17 11:10 | PCM.PROG ---
Progress Note - Progress Note for Day of Date of Exam: 09/17/21 - Subjective Subjective: WAS ADMITTED ON 09/08 FOR TREATMENT OF HEPATIC ENCEPHALOPATHY, DEDHYDRATION, ACUTE RENAL FAILURE, AND FREQUENT FALLS. PATIENT HAS A HISTORY OF CIRRHOSIS. TODAY, HE IS ALERT, LYING IN BED ON MORNING ROUNDS. HIS SPOUSE IS AT BEDSIDE. SHE REPORTS THAT HE CONTINUES WITH INTERMITTENT C ONFUSION, BUT DOES SEEM TO HAVE BEEN MORE LUCID OVER THE WEEKEND. HE IS NO LONGER REQUIRING THE USE OF RESTRAINTS. ON EXAMINATION, HEART IS REGULAR IN RATE AND RHYHTM. BILATERAL LUNGS NOTED WITH DIMINISHED LUNG SOUNDS THROUGHOUT. ABDOMEN IS DISTENDED, BUT NON-TENDER WITH NORMAL BOWEL SOUNDS NOTED IN ALL QUADRANTS. HIS VITALS THIS MORNING ARE: 98.1-79-20-99%-140/77. LABS WERE OBTAINED. ABNORMAL LAB VALUES INCLUDE THE FOLLOWING: RBC 2.67, HGB 9.0, HCT 26.1, PLT COUNT 94, CHLORIDE 112, CARBON DIOXIDE 19.9, BUN 23, CREATININE 1.61, CALCIUM 8.2, TOTAL BILI 2.80, AMMONIA 55, TOTAL PROTEIN 5.0, ALBUMIN 2.5. EGD WAS DONE BY LAST FRIDAY. FINDINGS INCLUDE GRADE I NON-BLEEDING ESOPHAGEAL VARICIES, MODERATELY SEVERE PORTAL HYPERTENSIVE GASTROPATHY, EROSIVE GASTRITIS. HE IS CURRENTLY RECEIVING 1/2 NORMAL SALINE AT 100 ML/HR, ALBUMIN 25% IV DAILY, THE POTASSIUM AND MAGNESIUM PROTOCOLS, ROCEPHIN 1G IV DAILY, HALDOL 4MG IV Q4H PRN, XIFAXIN, LACTULOSE 30ML PO TID, AND HIS HOME MEDICATIONS WERE RESUMED. AND Tana ARE IN AGREEMENT THAT PATIENT NEEDS A LIVER TRANSPLANT EVALUATION. INTIATED. HIS MELD SCORE WAS 24. TODAY, WE WILL INCREASE LACTULOSE TO FOUR TIMES A DAY. OTHERWISE, WE WILL CONTINUE WITH CURRENT PLAN OF CARE. WE PLAN TO FOLLOW UP WITH AM LABS AND CONTINUE TO MONITOR. TIME SPENT ON CLINICAL ASSESSMENT, REVIEWING LABS AND IMAGING, DECISION MAKING, AND DOCUMENTATION GREATER THAN 45 MINUTES - Past Medical Family Social History Past Med/Fam/Surg Hx: No changes since H&P Allergies: Allergies levofloxacin [From Levaquin] Allergy (Verified 07/29/21 07:31) - Review of Systems ROS: No change since H&P - Vital Signs and I&O's Vital Signs: Temperature 98.1 F Pulse Rate [Radial] 79 Pulse Rate 85 Respiratory Rate 20 Blood Pressure [Right Arm] 140/77 Blood Pressure [Left Arm] 173/69 Blood Pressure 144/86 O2 Sat by Pulse Oximetry 99 Intake and Output: Intake & Output 09/14/21 09/15/21 09/16/21 09/17/21 12:59 12:59 11:59 11:59 Intake Total 2999 / 2999 Balance 2999 / 2999 - Physical Exam Oriented: Not Oriented Eyes: Normal Ear: Normal Nose: Normal Throat: Normal Respiratory: Normal Cardiovascular: Normal : Normal Auscultation: Bowel Sounds: Normal Tenderness: Normal Skin: Normal Musculoskeletal: Normal Psychiatric: Normal Mood Description: Anxious Affect: Normal (agitated) Speech Pattern: Unclear, Inappropriate - Laboratory and Diagnostics Result Diagrams: 09/17/21 05:39 09/17/21 05:39 Labs: Laboratory WBC 8.1 X10^3/uL (3.6-10.0) 09/17/21 05:39 RBC 2.67 X10^6/uL (4.7-6.0) L 09/17/21 05:39 Hgb 9.0 g/dL (13.5-18.0) L 09/17/21 05:39 Hct 26.1 % (42.0-54.0) L 09/17/21 05:39 MCV 97.9 fL (80.0-100.0) 09/17/21 05:39 MCH 33.6 pg (27.0-34.0) 09/17/21 05:39 MCHC 34.3 g/dL (33.0-35.0) 09/17/21 05:39 RDW 17.3 % (11.6-16.5) H 09/17/21 05:39 Plt Count 94 X10^3/uL (150.0-450.0) L 09/17/21 05:39 Plt Count Comment Decreased (ADEQUATE) 09/10/21 05:05 MPV 6.6 fL (7.4-11.0) L 09/17/21 05:39 Neut % (Auto) 47.5 % (42.0-75.0) 09/17/21 05:39 Lymph % (Auto) 37.3 % (21.0-51.0) 09/17/21 05:39 [place] % (Auto) 9.5 % (0.0-13.0) 09/17/21 05:39 Eos % (Auto) 4.9 % (0.9-2.9) H 09/17/21 05:39 Baso % (Auto) 0.8 % (0.2-1.0) 09/17/21 05:39 Neut # (Auto) 3.8 x10^3/uL (2.2-4.8) 09/17/21 05:39 Lymph # (Auto) 3.0 X10^3/uL (1.3-2.9) H 09/17/21 05:39 [place] # (Auto) 0.8 x10^3/uL (0.3-0.8) 09/17/21 05:39 Eos # (Auto) 0.4 x10^3/uL (0.0-0.2) H 09/17/21 05:39 Baso # (Auto) 0.1 X10^3/uL (0.0-0.1) 09/17/21 05:39 Absolute Nucleated RBC 0.2 /100WBC 09/17/21 05:39 Total Counted 100 09/10/21 05:05 Neutrophils % (Manual) 71 % (39-76) 09/10/21 05:05 Lymphocytes % (Manual) 21 % (13-43) 09/10/21 05:05 Monocytes % (Manual) 2 % (4-9) L 09/10/21 05:05 Eosinophils % (Manual) 6 % (0-6) 09/10/21 05:05 Plt Morphology Comment Normal (NORMAL) 09/10/21 05:05 RBC Morphology Normal (NORMAL) 09/10/21 05:05 PT 19.3 SECONDS (11.8-14.3) 09/08/21 05:38 INR Target Range - 09/08/21 05:38 INR 1.72 (0.8-1.3) H 09/08/21 05:38 APTT 43.4 SECONDS (22.9-36.5) H 09/08/21 05:38 PTT Comment - 09/08/21 05:38 Sodium 143 mmol/L (136-145) 09/17/21 05:39 Corrected Sodium TNP 09/17/21 05:39 Potassium 3.5 mmol/L (3.5-5.1) 09/17/21 05:39 Chloride 112 mmol/L (98-107) H 09/17/21 05:39 Carbon Dioxide 19.9 mmol/L (21-32) L 09/17/21 05:39 BUN 23 mg/dL (7-18) H 09/17/21 05:39 Creatinine 1.61 mg/dL (0.70-1.30) H 09/17/21 05:39 Est GFR (MDRD) Af Amer 57 (>60) L 09/17/21 05:39 Est GFR (MDRD) Non-Af 47 (>60) L 09/17/21 05:39 Glucose 76 mg/dL (65-99) 09/17/21 05:39 Calcium 8.2 mg/dL (8.5-10.1) L 09/17/21 05:39 Corrected Calcium 9.4 mg/dL (8.5-10.1) 09/17/21 05:39 Magnesium 2.3 mg/dL (1.7-2.9) 09/17/21 05:39 Total Bilirubin 2.80 mg/dL (0.2-1.0) H 09/17/21 05:39 AST 34 Units/L (15-37) 09/17/21 05:39 ALT 14 Units/L (12-78) 09/17/21 05:39 Alkaline Phosphatase 101 Units/L (46-116) 09/17/21 05:39 Ammonia 55 umol/L (11-32) H 09/17/21 05:39 Creatine Kinase 34 Units/L (39-308) L 09/08/21 05:38 CK-MB (CK-2) < 1.0 ng/mL (0-4.0) 09/08/21 05:38 CK/CKMB % Calc 2.9 % (<4) 09/08/21 05:38 Troponin I < 0.02 ng/mL (0-1.5) 09/08/21 05:38 B-Natriuretic Peptide 104 pg/mL (0-79) H 09/07/21 13:58 Total Protein 5.0 g/dL (6.4-8.2) L 09/17/21 05:39 Albumin 2.5 g/dL (3.4-5.0) L 09/17/21 05:39 Globulin 2.5 g/dL (2.5-4.5) 09/17/21 05:39 Albumin/Globulin Ratio 1.0 Ratio (1.1-2.1) L 09/17/21 05:39 Specimen Type Clean catch urine 09/08/21 11:12 Urine Color Dark yellow (YELLOW) 09/08/21 11:12 Urine Appearance Clear (CLEAR) 09/08/21 11:12 Urine pH 6.0 (5.0 - 8.0) 09/08/21 11:12 Ur Specific [place] 1.015 (1.000-1.030) 09/08/21 11:12 Urine Protein 1+ (NEGATIVE) 09/08/21 11:12 Urine Glucose (UA) 2+ (NEGATIVE) 09/08/21 11:12 Urine Ketones Negative (NEGATIVE) 09/08/21 11:12 Urine Occult Blood 5+ (NEGATIVE) 09/08/21 11:12 Urine Nitrite Negative (NEGATIVE) 09/08/21 11:12 Urine Bilirubin Negative (NEGATIVE) 09/08/21 11:12 Urine Urobilinogen 2+ (NORMAL) 09/08/21 11:12 Ur Leukocyte Esterase Negative (NEGATIVE) 09/08/21 11:12 Urine RBC 10-20 /HPF (0-3) A 09/08/21 11:12 Urine WBC 0-2 /HPF (0-5) 09/08/21 11:12 Ur Squamous Epith Cells Rare /HPF (NEGATIVE) 09/08/21 11:12 Urine Bacteria Trace /HPF (NEGATIVE) 09/08/21 11:12 Hyaline Casts Few /LPF (NEGATIVE) 09/08/21 11:12 Urine Mucus Few /HPF (NEGATIVE) 09/08/21 11:12 Ur Culture Indicated? No/not indicated 09/08/21 11:12 SARS-CoV-2 (PCR) Negative (NEGATIVE) 09/07/21 16:48 Influenza Type A (PCR) Negative (NEGATIVE) 09/07/21 16:48 Influenza Type B (PCR) Negative (NEGATIVE) 09/07/21 16:48 RSV (PCR) Negative (NEGATIVE) 09/07/21 16:48 - Plan (1) Encephalopathy, hepatic Status: Acute Plan: 1/2 NORMAL SALINE AT 100 ML/HR, THE POTASSIUM AND MAGNESIUM PROTOCOLS, ROCEPHIN 1G IV DAILY, LACTULOSE 30ML PO QID, XIFAXIN BID, PROTONIX 40MG IV DAILY, HALDOL 4MG IM Q4H PRN, AND HIS HOME MEDICATIONS WERE RESUMED. (2) Acute renal failure Status: Acute Qualifiers: Acute renal failure type: unspecified (3) Cirrhosis of liver with ascites Status: Acute Qualifiers: Hepatic cirrhosis type: unspecified hepatic cirrhosis
[2021-09-17] MEDS: AMBIEN PO SCH (20:46)
[2021-09-17] MEDS: PEPCID TAB 20 MG PO SCH (20:47)
[2021-09-17] MEDS: FLOMAX PO SCH (20:47)
[2021-09-17] MEDS: CELEXA PO SCH (20:47)
[2021-09-17] MEDS: FLEXERIL TAB 10 MG PO SCH (20:47)
[2021-09-17] MEDS: HALDOL INJ IVP PRN (22:34)
[2021-09-18 05:48] LABS: BASOPHILS # (AUTO) 0.1 X10^3/uL (0.0-0.1); BASOPHILS % (AUTO) 0.6 % (0.2-1.0); EOSINOPHILS # (AUTO) 0.4 x10^3/uL (0.0-0.2); EOSINOPHILS % (AUTO) 4.5 % (0.9-2.9); HEMATOCRIT 26.8 % (42.0-54.0); HEMOGLOBIN 9.3 g/dL (13.5-18.0); LYMPHOCYTES # (AUTO) 3.1 X10^3/uL (1.3-2.9); LYMPHOCYTES % (AUTO) 40.1 % (21.0-51.0); MEAN CORPUSCULAR HEMOGLOBIN 33.5 pg (27.0-34.0); MEAN CORPUSCULAR HGB CONC 34.8 g/dL (33.0-35.0); MEAN CORPUSCULAR VOLUME 96.4 fL (80.0-100.0); MEAN PLATELET VOLUME 6.5 fL (7.4-11.0); MONOCYTES # (AUTO) 0.8 x10^3/uL (0.3-0.8); MONOCYTES % (AUTO) 9.6 % (0.0-13.0); NEUTROPHILS # (AUTO) 3.5 x10^3/uL (2.2-4.8); NEUTROPHILS % (AUTO) 45.2 % (42.0-75.0); PLATELET COUNT 105 X10^3/uL (150.0-450.0); RED BLOOD COUNT 2.78 X10^6/uL (4.7-6.0); WHITE BLOOD COUNT 7.8 X10^3/uL (3.6-10.0)
[2021-09-18 05:50] LABS: AMMONIA 33 umol/L (11-32)
[2021-09-18 05:59] LABS: ALANINE AMINOTRANSFERASE 19 Units/L (12-78); ALBUMIN 2.8 g/dL (3.4-5.0); ALKALINE PHOSPHATASE 112 Units/L (46-116); ASPARTATE AMINO TRANSFERASE 42 Units/L (15-37); BLOOD UREA NITROGEN 18 mg/dL (7-18); CALCIUM 8.7 mg/dL (8.5-10.1); CARBON DIOXIDE 22.8 mmol/L (21-32); CHLORIDE 111 mmol/L (98-107); COR CA(FOR HYPOALB) 9.7 mg/dL (8.5-10.1); CREATININE 1.43 mg/dL (0.70-1.30); SODIUM 144 mmol/L (136-145); TOTAL PROTEIN 5.4 g/dL (6.4-8.2); eGFR NON BLACK RACES 54 (>60)
[2021-09-18] MEDS: ROXICODONE TAB 5 MG PO PRN (08:48)
[2021-09-18] MEDS: MAG-OX TAB PO SCH (08:50)
[2021-09-18] MEDS: CHRONULAC PO SCH ×4 (08:50→21:20)
[2021-09-18] MEDS: K-DUR TAB 20 MEQ PO PRN (08:51)
[2021-09-18] MEDS: HYZAAR 50/12.5 MG PO SCH (08:52)
[2021-09-18] MEDS: XIFAXAN PO SCH ×2 (08:53→21:20)
[2021-09-18] MEDS: SYNTHROID 150 mcg TAB PO SCH (08:56)
[2021-09-18] MEDS: LOVENOX INJ 40 MG SYR SC SCH (08:57)
[2021-09-18] MEDS ORDERED: AMBIEN PO PRN (10:00)
--- NOTE | 2021-09-18 10:56 | PCM.PROG ---
Progress Note - Progress Note for Day of Date of Exam: 09/18/21 - Subjective Subjective: WAS ADMITTED ON 09/08 FOR TREATMENT OF HEPATIC ENCEPHALOPATHY, DEDHYDRATION, ACUTE RENAL FAILURE, AND FREQUENT FALLS. PATIENT HAS A HISTORY OF CIRRHOSIS. TODAY, HE IS ALERT, LYING IN BED ON MORNING ROUNDS. HIS SPOUSE IS AT BEDSIDE. SHE REPORTS THAT HE CONTINUES WITH INTERMITTENT C ONFUSION, BUT DOES SEEM TO BE MORE LUCID THIS MORNING. HE IS NO LONGER REQUIRING THE USE OF RESTRAINTS. ON EXAMINATION, HEART IS REGULAR IN RATE AND RHYHTM. BILATERAL LUNGS NOTED WITH DIMINISHED LUNG SOUNDS THROUGHOUT. ABDOMEN IS DISTENDED, BUT NON-TENDER WITH NORMAL BOWEL SOUNDS NOTED IN ALL QUADRANTS. HIS VITALS THIS MORNING ARE: 97.9-87-21-97%-172/74. LABS WERE OBTAINED. ABNORMAL LAB VALUES INCLUDE THE FOLLOWING: RBC 2.78, HGB 9.3, HCT 26.87, PLT COUNT 105, POTASSIUM 3.4, CHLORIDE 111, CREATININE 1.43, TOTAL PROTEIN 3.00, AMMONIA 33, TOTAL PROTEIN 5.4, ALBUMIN 2.8. EGD WAS DONE BY LAST FRIDAY. FINDINGS INCLUDE GRADE I NON-BLEEDING ESOPHAGEAL VARICIES, MODERATELY SEVERE PORTAL H YPERTENSIVE GASTROPATHY, EROSIVE GASTRITIS. HE IS CURRENTLY RECEIVING 1/2 NORMAL SALINE AT 100 ML/HR, ALBUMIN 25% IV DAILY, THE POTASSIUM AND MAGNESIUM PROTOCOLS, ROCEPHIN 1G IV DAILY, HALDOL 4MG IV Q4H PRN, XIFAXIN, LACTULOSE 30ML PO QID, AND HIS HOME MEDICATIONS WERE RESUMED. AND Tana ARE IN AGREEMENT THAT PATIENT NEEDS A LIVER TRANSPLANT EVALUATION. INTIATED. HIS MELD SCORE WAS 24. OTHERWISE, WE WILL CONTINUE WITH CURRENT PLAN OF CARE. WE PLAN TO FOLLOW UP WITH AM LABS AND CONTINUE TO MONITOR. TIME SPENT ON CLINICAL ASSESSMENT, REVIEWING LABS AND IMAGING, DECISION MAKING, AND DOCUMENTATION GREATER THAN 45 MINUTES. - Past Medical Family Social History Past Med/Fam/Surg Hx: No changes since H&P Allergies: Allergies levofloxacin [From Levaquin] Allergy (Verified 07/29/21 07:31) - Review of Systems ROS: No change since H&P - Vital Signs and I&O's Vital Signs: Temperature 97.9 F Pulse Rate [Radial] 87 Pulse Rate 85 Respiratory Rate 18 Blood Pressure [Right Arm] 172/74 Blood Pressure [Left Arm] 173/69 Blood Pressure 144/86 O2 Sat by Pulse Oximetry 97 Intake and Output: Intake & Output 09/15/21 09/16/21 09/17/21 09/18/21 12:59 11:59 11:59 11:59 Intake Total 2999 / 2999 3740 / 3740 Balance 2999 / 2999 3740 / 3740 - Physical Exam Oriented: Not Oriented Eyes: Normal Ear: Normal Nose: Normal Throat: Normal Respiratory: Normal Cardiovascular: Normal : Normal Auscultation: Bowel Sounds: Normal Palpation: Normal Tenderness: Normal Skin: Normal Musculoskeletal: Normal Psychiatric: Normal Mood Description: Calm Speech Pattern: Inappropriate - Laboratory and Diagnostics Result Diagrams: 09/18/21 05:23 09/18/21 05:23 Labs: Laboratory WBC 7.8 X10^3/uL (3.6-10.0) 09/18/21 05:23 RBC 2.78 X10^6/uL (4.7-6.0) L 09/18/21 05:23 Hgb 9.3 g/dL (13.5-18.0) L 09/18/21 05:23 Hct 26.8 % (42.0-54.0) L 09/18/21 05:23 MCV 96.4 fL (80.0-100.0) 09/18/21 05:23 MCH 33.5 pg (27.0-34.0) 09/18/21 05:23 MCHC 34.8 g/dL (33.0-35.0) 09/18/21 05:23 RDW 17.0 % (11.6-16.5) H 09/18/21 05:23 Plt Count 105 X10^3/uL (150.0-450.0) L 09/18/21 05:23 Plt Count Comment Decreased (ADEQUATE) 09/10/21 05:05 MPV 6.5 fL (7.4-11.0) L 09/18/21 05:23 Neut % (Auto) 45.2 % (42.0-75.0) 09/18/21 05:23 Lymph % (Auto) 40.1 % (21.0-51.0) 09/18/21 05:23 [place] % (Auto) 9.6 % (0.0-13.0) 09/18/21 05:23 Eos % (Auto) 4.5 % (0.9-2.9) H 09/18/21 05:23 Baso % (Auto) 0.6 % (0.2-1.0) 09/18/21 05:23 Neut # (Auto) 3.5 x10^3/uL (2.2-4.8) 09/18/21 05:23 Lymph # (Auto) 3.1 X10^3/uL (1.3-2.9) H 09/18/21 05:23 [place] # (Auto) 0.8 x10^3/uL (0.3-0.8) 09/18/21 05:23 Eos # (Auto) 0.4 x10^3/uL (0.0-0.2) H 09/18/21 05:23 Baso # (Auto) 0.1 X10^3/uL (0.0-0.1) 09/18/21 05:23 Absolute Nucleated RBC 0.1 /100WBC 09/18/21 05:23 Total Counted 100 09/10/21 05:05 Neutrophils % (Manual) 71 % (39-76) 09/10/21 05:05 Lymphocytes % (Manual) 21 % (13-43) 09/10/21 05:05 Monocytes % (Manual) 2 % (4-9) L 09/10/21 05:05 Eosinophils % (Manual) 6 % (0-6) 09/10/21 05:05 Plt Morphology Comment Normal (NORMAL) 09/10/21 05:05 RBC Morphology Normal (NORMAL) 09/10/21 05:05 PT 19.3 SECONDS (11.8-14.3) 09/08/21 05:38 INR Target Range - 09/08/21 05:38 INR 1.72 (0.8-1.3) H 09/08/21 05:38 APTT 43.4 SECONDS (22.9-36.5) H 09/08/21 05:38 PTT Comment - 09/08/21 05:38 Sodium 144 mmol/L (136-145) 09/18/21 05:23 Corrected Sodium TNP 09/18/21 05:23 Potassium 3.4 mmol/L (3.5-5.1) L 09/18/21 05:23 Chloride 111 mmol/L (98-107) H 09/18/21 05:23 Carbon Dioxide 22.8 mmol/L (21-32) 09/18/21 05:23 BUN 18 mg/dL (7-18) 09/18/21 05:23 Creatinine 1.43 mg/dL (0.70-1.30) H 09/18/21 05:23 Est GFR (MDRD) Af Amer > 60 (>60) 09/18/21 05:23 Est GFR (MDRD) Non-Af 54 (>60) L 09/18/21 05:23 Glucose 86 mg/dL (65-99) 09/18/21 05:23 Calcium 8.7 mg/dL (8.5-10.1) 09/18/21 05:23 Corrected Calcium 9.7 mg/dL (8.5-10.1) 09/18/21 05:23 Magnesium 2.3 mg/dL (1.7-2.9) 09/17/21 05:39 Total Bilirubin 3.00 mg/dL (0.2-1.0) H 09/18/21 05:23 AST 42 Units/L (15-37) H 09/18/21 05:23 ALT 19 Units/L (12-78) 09/18/21 05:23 Alkaline Phosphatase 112 Units/L (46-116) 09/18/21 05:23 Ammonia 33 umol/L (11-32) H 09/18/21 05:23 Creatine Kinase 34 Units/L (39-308) L 09/08/21 05:38 CK-MB (CK-2) < 1.0 ng/mL (0-4.0) 09/08/21 05:38 CK/CKMB % Calc 2.9 % (<4) 09/08/21 05:38 Troponin I < 0.02 ng/mL (0-1.5) 09/08/21 05:38 B-Natriuretic Peptide 104 pg/mL (0-79) H 09/07/21 13:58 Total Protein 5.4 g/dL (6.4-8.2) L 09/18/21 05:23 Albumin 2.8 g/dL (3.4-5.0) L 09/18/21 05:23 Globulin 2.6 g/dL (2.5-4.5) 09/18/21 05:23 Albumin/Globulin Ratio 1.1 Ratio (1.1-2.1) 09/18/21 05:23 Specimen Type Clean catch urine 09/08/21 11:12 Urine Color Dark yellow (YELLOW) 09/08/21 11:12 Urine Appearance Clear (CLEAR) 09/08/21 11:12 Urine pH 6.0 (5.0 - 8.0) 09/08/21 11:12 Ur Specific Metaline 1.015 (1.000-1.030) 09/08/21 11:12 Urine Protein 1+ (NEGATIVE) 09/08/21 11:12 Urine Glucose (UA) 2+ (NEGATIVE) 09/08/21 11:12 Urine Ketones Negative (NEGATIVE) 09/08/21 11:12 Urine Occult Blood 5+ (NEGATIVE) 09/08/21 11:12 Urine Nitrite Negative (NEGATIVE) 09/08/21 11:12 Urine Bilirubin Negative (NEGATIVE) 09/08/21 11:12 Urine Urobilinogen 2+ (NORMAL) 09/08/21 11:12 Ur Leukocyte Esterase Negative (NEGATIVE) 09/08/21 11:12 Urine RBC 10-20 /HPF (0-3) A 09/08/21 11:12 Urine WBC 0-2 /HPF (0-5) 09/08/21 11:12 Ur Squamous Epith Cells Rare /HPF (NEGATIVE) 09/08/21 11:12 Urine Bacteria Trace /HPF (NEGATIVE) 09/08/21 11:12 Hyaline Casts Few /LPF (NEGATIVE) 09/08/21 11:12 Urine Mucus Few /HPF (NEGATIVE) 09/08/21 11:12 Ur Culture Indicated? No/not indicated 09/08/21 11:12 SARS-CoV-2 (PCR) Negative (NEGATIVE) 09/07/21 16:48 Influenza Type A (PCR) Negative (NEGATIVE) 09/07/21 16:48 Influenza Type B (PCR) Negative (NEGATIVE) 09/07/21 16:48 RSV (PCR) Negative (NEGATIVE) 09/07/21 16:48 - Plan (1) Encephalopathy, hepatic Status: Acute Plan: 1/2 NORMAL SALINE AT 100 ML/HR, THE POTASSIUM AND MAGNESIUM PROTOCOLS, ROCEPHIN 1G IV DAILY, LACTULOSE 30ML PO QID, XIFAXIN BID, PROTONIX 40MG IV DAILY, HALDOL 4MG IM Q4H PRN, AND HIS HOME MEDICATIONS WERE RESUMED. (2) Acute renal failure Status: Acute Qualifiers: Acute renal failure type: unspecified (3) Cirrhosis of liver with ascites Status: Acute Qualifiers: Hepatic cirrhosis type: unspecified hepatic cirrhosis
[2021-09-18] MEDS: ALBUMIN HUMAN 25%- 100 ML 100 ML IV SCH (11:04)
[2021-09-18] MEDS: PROTONIX INJ 40 MG VIAL IVP SCH (11:05)
[2021-09-18] MEDS: ROCEPHIN VIAL 1 GRAM 1 G in NS 100 ML IV + SPIKE MINIBAG* 100 ML IV SCH (11:05)
[2021-09-18] MEDS ORDERED: XYLOCAINE 1 % (PLAIN) ONE (13:12)
[2021-09-18] MEDS: NS 1/2 1,000 ML IV 1,000 ML IV SCH ×2 (18:07→22:10)
[2021-09-18] MEDS: CELEXA PO SCH (20:49)
[2021-09-18] MEDS ORDERED: NS 1/2 1,000 ML IV 1,000 ML IV ONE (21:10)
[2021-09-18] MEDS: PEPCID TAB 20 MG PO SCH (21:20)
[2021-09-18] MEDS: FLOMAX PO SCH (21:20)
[2021-09-18] MEDS: FLEXERIL TAB 10 MG PO SCH (21:20)
[2021-09-19] MEDS: NS 1/2 1,000 ML IV 1,000 ML IV SCH ×2 (00:50→10:09)
[2021-09-19 06:15] LABS: BASOPHILS # (AUTO) 0.1 X10^3/uL (0.0-0.1); BASOPHILS % (AUTO) 0.7 % (0.2-1.0); EOSINOPHILS # (AUTO) 0.4 x10^3/uL (0.0-0.2); EOSINOPHILS % (AUTO) 6.1 % (0.9-2.9); HEMATOCRIT 25.4 % (42.0-54.0); HEMOGLOBIN 8.8 g/dL (13.5-18.0); LYMPHOCYTES # (AUTO) 2.7 X10^3/uL (1.3-2.9); LYMPHOCYTES % (AUTO) 39.5 % (21.0-51.0); MEAN CORPUSCULAR HEMOGLOBIN 33.6 pg (27.0-34.0); MEAN CORPUSCULAR HGB CONC 34.4 g/dL (33.0-35.0); MEAN CORPUSCULAR VOLUME 97.7 fL (80.0-100.0); MEAN PLATELET VOLUME 6.4 fL (7.4-11.0); MONOCYTES # (AUTO) 0.6 x10^3/uL (0.3-0.8); MONOCYTES % (AUTO) 9.4 % (0.0-13.0); NEUTROPHILS % (AUTO) 44.3 % (42.0-75.0); PLATELET COUNT 91 X10^3/uL (150.0-450.0); RED CELL DISTRIBUTION WIDTH 17.3 % (11.6-16.5); WHITE BLOOD COUNT 6.8 X10^3/uL (3.6-10.0)
[2021-09-19 06:22] LABS: AMMONIA 51 umol/L (11-32)
[2021-09-19 06:29] LABS: ALANINE AMINOTRANSFERASE 23 Units/L (12-78); ALBUMIN 2.5 g/dL (3.4-5.0); ALKALINE PHOSPHATASE 103 Units/L (46-116); ASPARTATE AMINO TRANSFERASE 45 Units/L (15-37); BLOOD UREA NITROGEN 15 mg/dL (7-18); CALCIUM 8.6 mg/dL (8.5-10.1); CHLORIDE 113 mmol/L (98-107); COR CA(FOR HYPOALB) 9.8 mg/dL (8.5-10.1); CREATININE 1.27 mg/dL (0.70-1.30); SODIUM 144 mmol/L (136-145); TOTAL PROTEIN 4.9 g/dL (6.4-8.2); eGFR NON BLACK RACES > 60 (>60)
[2021-09-19] MEDS: ALBUMIN HUMAN 25%- 100 ML 100 ML IV SCH (09:29)
[2021-09-19] MEDS: ROCEPHIN VIAL 1 GRAM 1 G in NS 100 ML IV + SPIKE MINIBAG* 100 ML IV SCH (09:30)
[2021-09-19] MEDS: PROTONIX INJ 40 MG VIAL IVP SCH (09:30)
[2021-09-19] MEDS: XIFAXAN PO SCH ×2 (09:31→20:52)
[2021-09-19] MEDS: SYNTHROID 150 mcg TAB PO SCH (09:31)
[2021-09-19] MEDS: HYZAAR 50/12.5 MG PO SCH (09:31)
[2021-09-19] MEDS: CHRONULAC PO SCH ×4 (09:31→20:51)
[2021-09-19] MEDS: MAG-OX TAB PO SCH (09:31)
[2021-09-19] MEDS: K-DUR TAB 20 MEQ PO PRN (10:48)
--- NOTE | 2021-09-19 11:26 | PCM.PROG ---
Progress Note - Progress Note for Day of Date of Exam: 09/19/21 - Subjective Subjective: WAS ADMITTED ON 09/08 FOR TREATMENT OF HEPATIC ENCEPHALOPATHY, DEDHYDRATION, ACUTE RENAL FAILURE, AND FREQUENT FALLS. PATIENT HAS A HISTORY OF CIRRHOSIS. TODAY, HE IS ALERT, LYING IN BED ON MORNING ROUNDS. HIS SPOUSE IS AT BEDSIDE. SHE REPORTS THAT HE CONTINUES WITH INTERMITTENT C ONFUSION, BUT HE IS MUCH MORE LUCID TODAY. ON EXAMINATION, HEART IS REGULAR IN RATE AND RHYHTM. BILATERAL LUNGS NOTED WITH DIMINISHED LUNG SOUNDS THROUGHOUT. ABDOMEN IS DISTENDED, BUT NON-TENDER WITH NORMAL BOWEL SOUNDS NOTED IN ALL QUADRANTS. HIS VITALS THIS MORNING ARE: 98.3-80-20-95%-119/56. LABS WERE OBTAINED. ABNORMAL LAB VALUES INCLUDE THE FOLLOWING: RBC 2.60, HGB 8.8, HCT 25.4, PLT COUNT 91, POTASSIUM 3.2, CHLORIDE 113, TOTAL BILI 2.70, AMMONIA 51, TOTAL PROTEIN 4.9, ALBUMIN 2.5. EGD WAS DONE BY LAST FRIDAY. FINDINGS INCLUDE GRADE I NON-BLEEDING ESOPHAGEAL VARICIES, MODERATELY SEVERE PORTAL HYPERTENSIVE GASTROPATHY, EROSIVE GASTRITIS. HE IS CURRENTLY RECEIVING 1/2 NORMAL SALINE AT 100 ML/HR, ALBUMIN 25% IV DAILY, THE POTASSIUM AND MAGNESIUM PROTOCOLS, ROCEPHIN 1G IV DAILY, HALDOL 4MG IV Q4H PRN, XIFAXIN, LACTULOSE 30ML PO QID, AND HIS HOME MEDICATIONS WERE RESUMED. AND I ARE IN AGREEMENT THAT PATIENT NEEDS A LIVER TRANSPLANT EVALUATION. INTIATED. HIS MELD SCORE WAS 24. OTHERWISE, WE WILL CONTINUE WITH CURRENT PLAN OF CARE TODAY. WE PLAN TO FOLLOW UP WITH AM LABS AND CONTINUE TO MONITOR. TIME SPENT ON CLINICAL ASSESSMENT, REVIEWING LABS AND IMAGING, DECISION MAKING, AND DOCUMENTATION GREATER THAN 45 MINUTES. - Past Medical Family Social History Past Med/Fam/Surg Hx: No changes since H&P Allergies: Allergies levofloxacin [From Levaquin] Allergy (Verified 07/29/21 07:31) - Review of Systems ROS: No change since H&P - Vital Signs and I&O's Vital Signs: Temperature 98.3 F Pulse Rate [Radial] 80 Pulse Rate 85 Respiratory Rate 20 Blood Pressure [Right Arm] 119/56 Blood Pressure [Left Arm] 147/66 Blood Pressure 144/86 O2 Sat by Pulse Oximetry 95 Intake and Output: Intake & Output 09/16/21 09/17/21 09/18/21 09/19/21 11:59 11:59 11:59 11:59 Intake Total 2999 / 2999 4329 / 4329 2610 / 2610 Balance 2999 / 2999 4329 / 4329 2610 / 2610 - Physical Exam Oriented: Not Oriented Eyes: Normal Ear: Normal Nose: Normal Throat: Normal Respiratory: Normal Cardiovascular: Normal : Normal Auscultation: Bowel Sounds: Normal Tenderness: Normal Skin: Normal Musculoskeletal: Normal Psychiatric: Normal Mood Description: Calm Affect: Normal (agitated) Speech Pattern: Appropriate - Laboratory and Diagnostics Result Diagrams: 09/19/21 05:46 09/19/21 05:46 Labs: Laboratory WBC 6.8 X10^3/uL (3.6-10.0) 09/19/21 05:46 RBC 2.60 X10^6/uL (4.7-6.0) L 09/19/21 05:46 Hgb 8.8 g/dL (13.5-18.0) L 09/19/21 05:46 Hct 25.4 % (42.0-54.0) L 09/19/21 05:46 MCV 97.7 fL (80.0-100.0) 09/19/21 05:46 MCH 33.6 pg (27.0-34.0) 09/19/21 05:46 MCHC 34.4 g/dL (33.0-35.0) 09/19/21 05:46 RDW 17.3 % (11.6-16.5) H 09/19/21 05:46 Plt Count 91 X10^3/uL (150.0-450.0) L 09/19/21 05:46 Plt Count Comment Decreased (ADEQUATE) 09/10/21 05:05 MPV 6.4 fL (7.4-11.0) L 09/19/21 05:46 Neut % (Auto) 44.3 % (42.0-75.0) 09/19/21 05:46 Lymph % (Auto) 39.5 % (21.0-51.0) 09/19/21 05:46 [place] % (Auto) 9.4 % (0.0-13.0) 09/19/21 05:46 Eos % (Auto) 6.1 % (0.9-2.9) H 09/19/21 05:46 Baso % (Auto) 0.7 % (0.2-1.0) 09/19/21 05:46 Neut # (Auto) 3.0 x10^3/uL (2.2-4.8) 09/19/21 05:46 Lymph # (Auto) 2.7 X10^3/uL (1.3-2.9) 09/19/21 05:46 [place] # (Auto) 0.6 x10^3/uL (0.3-0.8) 09/19/21 05:46 Eos # (Auto) 0.4 x10^3/uL (0.0-0.2) H 09/19/21 05:46 Baso # (Auto) 0.1 X10^3/uL (0.0-0.1) 09/19/21 05:46 Absolute Nucleated RBC 0.0 /100WBC 09/19/21 05:46 Total Counted 100 09/10/21 05:05 Neutrophils % (Manual) 71 % (39-76) 09/10/21 05:05 Lymphocytes % (Manual) 21 % (13-43) 09/10/21 05:05 Monocytes % (Manual) 2 % (4-9) L 09/10/21 05:05 Eosinophils % (Manual) 6 % (0-6) 09/10/21 05:05 Plt Morphology Comment Normal (NORMAL) 09/10/21 05:05 RBC Morphology Normal (NORMAL) 09/10/21 05:05 PT 19.3 SECONDS (11.8-14.3) 09/08/21 05:38 INR Target Range - 09/08/21 05:38 INR 1.72 (0.8-1.3) H 09/08/21 05:38 APTT 43.4 SECONDS (22.9-36.5) H 09/08/21 05:38 PTT Comment - 09/08/21 05:38 Sodium 144 mmol/L (136-145) 09/19/21 05:46 Corrected Sodium TNP 09/19/21 05:46 Potassium 3.2 mmol/L (3.5-5.1) L 09/19/21 05:46 Chloride 113 mmol/L (98-107) H 09/19/21 05:46 Carbon Dioxide 23.0 mmol/L (21-32) 09/19/21 05:46 BUN 15 mg/dL (7-18) 09/19/21 05:46 Creatinine 1.27 mg/dL (0.70-1.30) 09/19/21 05:46 Est GFR (MDRD) Af Amer > 60 (>60) 09/19/21 05:46 Est GFR (MDRD) Non-Af > 60 (>60) 09/19/21 05:46 Glucose 95 mg/dL (65-99) 09/19/21 05:46 Calcium 8.6 mg/dL (8.5-10.1) 09/19/21 05:46 Corrected Calcium 9.8 mg/dL (8.5-10.1) 09/19/21 05:46 Magnesium 2.0 mg/dL (1.7-2.9) 09/19/21 05:46 Total Bilirubin 2.70 mg/dL (0.2-1.0) H 09/19/21 05:46 AST 45 Units/L (15-37) H 09/19/21 05:46 ALT 23 Units/L (12-78) 09/19/21 05:46 Alkaline Phosphatase 103 Units/L (46-116) 09/19/21 05:46 Ammonia 51 umol/L (11-32) H 09/19/21 05:46 Creatine Kinase 34 Units/L (39-308) L 09/08/21 05:38 CK-MB (CK-2) < 1.0 ng/mL (0-4.0) 09/08/21 05:38 CK/CKMB % Calc 2.9 % (<4) 09/08/21 05:38 Troponin I < 0.02 ng/mL (0-1.5) 09/08/21 05:38 B-Natriuretic Peptide 104 pg/mL (0-79) H 09/07/21 13:58 Total Protein 4.9 g/dL (6.4-8.2) L 09/19/21 05:46 Albumin 2.5 g/dL (3.4-5.0) L 09/19/21 05:46 Globulin 2.4 g/dL (2.5-4.5) L 09/19/21 05:46 Albumin/Globulin Ratio 1.0 Ratio (1.1-2.1) L 09/19/21 05:46 Specimen Type Clean catch urine 09/08/21 11:12 Urine Color Dark yellow (YELLOW) 09/08/21 11:12 Urine Appearance Clear (CLEAR) 09/08/21 11:12 Urine pH 6.0 (5.0 - 8.0) 09/08/21 11:12 Ur Specific [place] 1.015 (1.000-1.030) 09/08/21 11:12 Urine Protein 1+ (NEGATIVE) 09/08/21 11:12 Urine Glucose (UA) 2+ (NEGATIVE) 09/08/21 11:12 Urine Ketones Negative (NEGATIVE) 09/08/21 11:12 Urine Occult Blood 5+ (NEGATIVE) 09/08/21 11:12 Urine Nitrite Negative (NEGATIVE) 09/08/21 11:12 Urine Bilirubin Negative (NEGATIVE) 09/08/21 11:12 Urine Urobilinogen 2+ (NORMAL) 09/08/21 11:12 Ur Leukocyte Esterase Negative (NEGATIVE) 09/08/21 11:12 Urine RBC 10-20 /HPF (0-3) A 09/08/21 11:12 Urine WBC 0-2 /HPF (0-5) 09/08/21 11:12 Ur Squamous Epith Cells Rare /HPF (NEGATIVE) 09/08/21 11:12 Urine Bacteria Trace /HPF (NEGATIVE) 09/08/21 11:12 Hyaline Casts Few /LPF (NEGATIVE) 09/08/21 11:12 Urine Mucus Few /HPF (NEGATIVE) 09/08/21 11:12 Ur Culture Indicated? No/not indicated 09/08/21 11:12 SARS-CoV-2 (PCR) Negative (NEGATIVE) 09/07/21 16:48 Influenza Type A (PCR) Negative (NEGATIVE) 09/07/21 16:48 Influenza Type B (PCR) Negative (NEGATIVE) 09/07/21 16:48 RSV (PCR) Negative (NEGATIVE) 09/07/21 16:48 - Plan (1) Encephalopathy, hepatic Status: Acute Plan: 1/2 NORMAL SALINE AT 100 ML/HR, THE POTASSIUM AND MAGNESIUM PROTOCOLS, ROCEPHIN 1G IV DAILY, LACTULOSE 30ML PO QID, XIFAXIN BID, PROTONIX 40MG IV DAILY, HALDOL 4MG IM Q4H PRN, AND HIS HOME MEDICATIONS WERE RESUMED. (2) Acute renal failure Status: Acute Qualifiers: Acute renal failure type: unspecified (3) Cirrhosis of liver with ascites Status: Acute Qualifiers: Hepatic cirrhosis type: unspecified hepatic cirrhosis
[2021-09-19] MEDS: MORPHINE SULFATE INJ 2 MG INJ IVP PRN (15:09)
[2021-09-19] MEDS: CELEXA PO SCH (20:51)
[2021-09-19] MEDS: FLEXERIL TAB 10 MG PO SCH (20:51)
[2021-09-19] MEDS: FLOMAX PO SCH (20:51)
[2021-09-19] MEDS: PEPCID TAB 20 MG PO SCH (20:52)
[2021-09-20] MEDS ORDERED: NS 1/2 1,000 ML IV 1,000 ML IV ONE (00:48)
[2021-09-20 05:49] LABS: BASOPHILS % (AUTO) 0.5 % (0.2-1.0); EOSINOPHILS # (AUTO) 0.3 x10^3/uL (0.0-0.2); EOSINOPHILS % (AUTO) 4.3 % (0.9-2.9); HEMATOCRIT 26.4 % (42.0-54.0); LYMPHOCYTES # (AUTO) 2.4 X10^3/uL (1.3-2.9); LYMPHOCYTES % (AUTO) 33.9 % (21.0-51.0); MEAN CORPUSCULAR HEMOGLOBIN 33.3 pg (27.0-34.0); MEAN CORPUSCULAR HGB CONC 34.1 g/dL (33.0-35.0); MEAN CORPUSCULAR VOLUME 97.8 fL (80.0-100.0); MEAN PLATELET VOLUME 6.7 fL (7.4-11.0); MONOCYTES # (AUTO) 0.8 x10^3/uL (0.3-0.8); MONOCYTES % (AUTO) 11.2 % (0.0-13.0); NEUTROPHILS # (AUTO) 3.6 x10^3/uL (2.2-4.8); NEUTROPHILS % (AUTO) 50.1 % (42.0-75.0); PLATELET COUNT 98 X10^3/uL (150.0-450.0); RED CELL DISTRIBUTION WIDTH 17.1 % (11.6-16.5); WHITE BLOOD COUNT 7.2 X10^3/uL (3.6-10.0)
[2021-09-20 05:54] LABS: AMMONIA 41 umol/L (11-32)
[2021-09-20 05:59] LABS: ALANINE AMINOTRANSFERASE 30 Units/L (12-78); ALBUMIN 2.7 g/dL (3.4-5.0); ALKALINE PHOSPHATASE 115 Units/L (46-116); ASPARTATE AMINO TRANSFERASE 62 Units/L (15-37); BLOOD UREA NITROGEN 11 mg/dL (7-18); CALCIUM 8.7 mg/dL (8.5-10.1); CARBON DIOXIDE 22.5 mmol/L (21-32); CHLORIDE 113 mmol/L (98-107); COR CA(FOR HYPOALB) 9.7 mg/dL (8.5-10.1); CREATININE 1.22 mg/dL (0.70-1.30); SODIUM 145 mmol/L (136-145); TOTAL PROTEIN 5.1 g/dL (6.4-8.2); eGFR NON BLACK RACES > 60 (>60)
[2021-09-20] MEDS: MORPHINE SULFATE INJ 2 MG INJ IVP PRN (08:25)
[2021-09-20] MEDS: ROCEPHIN VIAL 1 GRAM 1 G in NS 100 ML IV + SPIKE MINIBAG* 100 ML IV SCH (09:42)
[2021-09-20] MEDS: PROTONIX INJ 40 MG VIAL IVP SCH (09:43)
[2021-09-20] MEDS: ALBUMIN HUMAN 25%- 100 ML 100 ML IV SCH (09:43)
[2021-09-20] MEDS: HYZAAR 50/12.5 MG PO SCH (09:45)
[2021-09-20] MEDS: SYNTHROID 150 mcg TAB PO SCH (09:45)
[2021-09-20] MEDS: MAG-OX TAB PO SCH (09:46)
[2021-09-20] MEDS: XIFAXAN PO SCH (09:46)
[2021-09-20] MEDS: CHRONULAC PO SCH (09:47)
[2021-09-20] MEDS: K-DUR TAB 20 MEQ PO PRN (10:09)
--- NOTE | 2021-09-20 14:08 | DR.PROGNOT ---
Hospital Progress Notes - Progress Note for Day of: Progress Note Date: 09/20/21 - Chief Complaint Chief Complaint: Cirrhosis - History of Present Illness History of Present Illness: Pt. refused transfer to [facility] for liver transplant evaluation. Says he was concerned about the expenses also worried about his 76 y/o mother who got admitted to another hospital for pneumonia. - Past Medical Family Social History Past Med/Fam/Surg Hx: No changes since H&P Allergies: Allergies levofloxacin [From Levaquin] Allergy (Verified 07/29/21 07:31) - Review Of Systems ROS: No change since H&P - Vital Signs Vital Signs: Temperature 98.1 F Pulse Rate [Radial] 88 Pulse Rate 85 Respiratory Rate 22 Blood Pressure [Right Arm] 120/56 Blood Pressure [Left Arm] 147/66 Blood Pressure 144/86 O2 Sat by Pulse Oximetry 97 - Physical Exam Oriented: Normal, Time, Person, Place Eyes: Normal Ear: Normal Nose: Normal Throat: Normal Respiratory: Normal Cardiovascular: Normal : Normal GI:Auscultation: Normal GI:Palpation: Normal GI: Tenderness: Normal, Other (mildly distended) Skin: Ecchymosis (on chest wall) Musculoskeletal: Normal Psychiatric: Normal Mood Description: Calm Affect: Normal (agitated) Speech Pattern: Appropriate - Laboratory and Diagnostics Result Diagrams: 09/20/21 04:56 09/20/21 04:56 Labs: Laboratory WBC 7.2 X10^3/uL (3.6-10.0) 09/20/21 04:56 RBC 2.70 X10^6/uL (4.7-6.0) L 09/20/21 04:56 Hgb 9.0 g/dL (13.5-18.0) L 09/20/21 04:56 Hct 26.4 % (42.0-54.0) L 09/20/21 04:56 MCV 97.8 fL (80.0-100.0) 09/20/21 04:56 MCH 33.3 pg (27.0-34.0) 09/20/21 04:56 MCHC 34.1 g/dL (33.0-35.0) 09/20/21 04:56 RDW 17.1 % (11.6-16.5) H 09/20/21 04:56 Plt Count 98 X10^3/uL (150.0-450.0) L 09/20/21 04:56 Plt Count Comment Decreased (ADEQUATE) 09/10/21 05:05 MPV 6.7 fL (7.4-11.0) L 09/20/21 04:56 Neut % (Auto) 50.1 % (42.0-75.0) 09/20/21 04:56 Lymph % (Auto) 33.9 % (21.0-51.0) 09/20/21 04:56 [place] % (Auto) 11.2 % (0.0-13.0) 09/20/21 04:56 Eos % (Auto) 4.3 % (0.9-2.9) H 09/20/21 04:56 Baso % (Auto) 0.5 % (0.2-1.0) 09/20/21 04:56 Neut # (Auto) 3.6 x10^3/uL (2.2-4.8) 09/20/21 04:56 Lymph # (Auto) 2.4 X10^3/uL (1.3-2.9) 09/20/21 04:56 [place] # (Auto) 0.8 x10^3/uL (0.3-0.8) 09/20/21 04:56 Eos # (Auto) 0.3 x10^3/uL (0.0-0.2) H 09/20/21 04:56 Baso # (Auto) 0.0 X10^3/uL (0.0-0.1) 09/20/21 04:56 Absolute Nucleated RBC 0.0 /100WBC 09/20/21 04:56 Total Counted 100 09/10/21 05:05 Neutrophils % (Manual) 71 % (39-76) 09/10/21 05:05 Lymphocytes % (Manual) 21 % (13-43) 09/10/21 05:05 Monocytes % (Manual) 2 % (4-9) L 09/10/21 05:05 Eosinophils % (Manual) 6 % (0-6) 09/10/21 05:05 Plt Morphology Comment Normal (NORMAL) 09/10/21 05:05 RBC Morphology Normal (NORMAL) 09/10/21 05:05 PT 19.3 SECONDS (11.8-14.3) 09/08/21 05:38 INR Target Range - 09/08/21 05:38 INR 1.72 (0.8-1.3) H 09/08/21 05:38 APTT 43.4 SECONDS (22.9-36.5) H 09/08/21 05:38 PTT Comment - 09/08/21 05:38 Sodium 145 mmol/L (136-145) 09/20/21 04:56 Corrected Sodium TNP 09/20/21 04:56 Potassium 3.3 mmol/L (3.5-5.1) L 09/20/21 04:56 Chloride 113 mmol/L (98-107) H 09/20/21 04:56 Carbon Dioxide 22.5 mmol/L (21-32) 09/20/21 04:56 BUN 11 mg/dL (7-18) 09/20/21 04:56 Creatinine 1.22 mg/dL (0.70-1.30) 09/20/21 04:56 Est GFR (MDRD) Af Amer > 60 (>60) 09/20/21 04:56 Est GFR (MDRD) Non-Af > 60 (>60) 09/20/21 04:56 Glucose 98 mg/dL (65-99) 09/20/21 04:56 Calcium 8.7 mg/dL (8.5-10.1) 09/20/21 04:56 Corrected Calcium 9.7 mg/dL (8.5-10.1) 09/20/21 04:56 Magnesium 2.0 mg/dL (1.7-2.9) 09/19/21 05:46 Total Bilirubin 2.40 mg/dL (0.2-1.0) H 09/20/21 04:56 AST 62 Units/L (15-37) H 09/20/21 04:56 ALT 30 Units/L (12-78) 09/20/21 04:56 Alkaline Phosphatase 115 Units/L (46-116) 09/20/21 04:56 Ammonia 41 umol/L (11-32) H 09/20/21 04:56 Creatine Kinase 34 Units/L (39-308) L 09/08/21 05:38 CK-MB (CK-2) < 1.0 ng/mL (0-4.0) 09/08/21 05:38 CK/CKMB % Calc 2.9 % (<4) 09/08/21 05:38 Troponin I < 0.02 ng/mL (0-1.5) 09/08/21 05:38 B-Natriuretic Peptide 104 pg/mL (0-79) H 09/07/21 13:58 Total Protein 5.1 g/dL (6.4-8.2) L 09/20/21 04:56 Albumin 2.7 g/dL (3.4-5.0) L 09/20/21 04:56 Globulin 2.4 g/dL (2.5-4.5) L 09/20/21 04:56 Albumin/Globulin Ratio 1.1 Ratio (1.1-2.1) 09/20/21 04:56 Specimen Type Clean catch urine 09/08/21 11:12 Urine Color Dark yellow (YELLOW) 09/08/21 11:12 Urine Appearance Clear (CLEAR) 09/08/21 11:12 Urine pH 6.0 (5.0 - 8.0) 09/08/21 11:12 Ur Specific [place] 1.015 (1.000-1.030) 09/08/21 11:12 Urine Protein 1+ (NEGATIVE) 09/08/21 11:12 Urine Glucose (UA) 2+ (NEGATIVE) 09/08/21 11:12 Urine Ketones Negative (NEGATIVE) 09/08/21 11:12 Urine Occult Blood 5+ (NEGATIVE) 09/08/21 11:12 Urine Nitrite Negative (NEGATIVE) 09/08/21 11:12 Urine Bilirubin Negative (NEGATIVE) 09/08/21 11:12 Urine Urobilinogen 2+ (NORMAL) 09/08/21 11:12 Ur Leukocyte Esterase Negative (NEGATIVE) 09/08/21 11:12 Urine RBC 10-20 /HPF (0-3) A 09/08/21 11:12 Urine WBC 0-2 /HPF (0-5) 09/08/21 11:12 Ur Squamous Epith Cells Rare /HPF (NEGATIVE) 09/08/21 11:12 Urine Bacteria Trace /HPF (NEGATIVE) 09/08/21 11:12 Hyaline Casts Few /LPF (NEGATIVE) 09/08/21 11:12 Urine Mucus Few /HPF (NEGATIVE) 09/08/21 11:12 Ur Culture Indicated? No/not indicated 09/08/21 11:12 SARS-CoV-2 (PCR) Negative (NEGATIVE) 09/07/21 16:48 Influenza Type A (PCR) Negative (NEGATIVE) 09/07/21 16:48 Influenza Type B (PCR) Negative (NEGATIVE) 09/07/21 16:48 RSV (PCR) Negative (NEGATIVE) 09/07/21 16:48 EKG Reviewed: Yes, No, N/A - Assessment and Plan 1: 1. 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 2. Hepatic encephalopathy, mentation has improved. 3. Portal hypertension. Plan: Discussed with patient and at length, his end stage liver disease status was fully described, complications such as Hepatorenal syndrome was fully explained (other complcations were discussed at length as well) . Overall very poor prognosis without intervention was discussed in detail. Patient and understand the situation well. This morning i received a message from Dr. Dot Rodriguez, the vehicle body maker at [facility], that if patient is willing to pursue further workup he can be seen as outpatient on expediated basis. Above was discussed with patint and , at present they have told me that they want to pursue outpatient workup. Patient is stable from GI standpoint for discharge and outpatient followup. Patient should continue Lactulose 45 cc bid and Xifaxan 550mg twice daily and follow up me in 1-2 weeks. - Problem Patient Problems: Patient Problems Acute renal failure (Acute) N17.9 Cirrhosis of liver with ascites (Acute) K74.60, R18.8 Encephalopathy, hepatic (Acute) K72.90 Generalized weakness (Acute) R53.1 Knee sprain (Acute) S83.90XA
[2021-09-20 15:45] VITALS: BP 127/59
== END 2021-09-20 15:30 | disposition hospice, home (50) | DRG 442 ==
LOC: ER 12:33 → MED/SURG 12:33
PROVIDERS: ADMIT Internal Medicine; ATTEND Internal Medicine
DX: S83.90XA Sprain of unspecified site of unspecified knee, initial encounter; T82.524A Displacement of infusion catheter, initial encounter; K31.89 Other diseases of stomach and duodenum; K72.90 Hepatic failure, unspecified without coma; I85.10 Secondary esophageal varices without bleeding; N17.8 Other acute kidney failure; E86.0 Dehydration; I87.2 Venous insufficiency (chronic) (peripheral); K74.69 Other cirrhosis of liver; K29.60 Other gastritis without bleeding; D50.8 Other iron deficiency anemias; Z78.1 Physical restraint status; Z91.81 History of falling; Z20.822 Contact with and (suspected) exposure to COVID-19; D69.6 Thrombocytopenia, unspecified; K76.6 Portal hypertension; E66.01 Morbid (severe) obesity due to excess calories